=== PATIENT | male | born 1950 | race Caucasian/White ===

== ENCOUNTER → 2018-02-25 07:31 | Outpatient (CLI) | payer OTHER, SELFPAY ==
--- NOTE | 2018-02-25 | DI.RAD.S_ITS ---
PROCEDURE: XR ANKLE RT MIN 3V INDICATIONS: right ankle pain TECHNIQUE: 3 views of the ankle were acquired. COMPARISON: [facility], , ANKLE 3 VIEWS LEFT, 04/24/2016, 9:37. FINDINGS: Bones: No acute fractures or dislocations but there is relatively prominent degenerative tibiotalar joint osteophytic change and a tilt of the tailus in relationship to the distal plafond to the degree that significant ligamentous laxity is present allowing widening of the lateral ankle mortise joint vertically in that area. . No suspicious bony lesions. Soft tissues: No tibiotalar joint effusion. Achilles tendon appears normal. IMPRESSION: Chronic moderate degenerative osteoarthritic change, suspect several small old avulsion fragments at the inferior tip of the lateral and medial malleolus. No acute trauma seen. Ankle joint instability appears present given the abnormal widening of the lateral ankle mortise joint vertically, showing approximately a width of 7 mm laterally versus 3-4 mm medially Dictated by: Mitchell Ng M.D. on 02/25/2018 at 11:30 Approved by: Mitchell Ng M.D. on 02/25/2018 at 11:31
== END ==
PROVIDERS: Family Provider Family Medicine; PCP Family Medicine; Visit Provider Chiropractor
DX: M19.071 Primary osteoarthritis, right ankle and foot (principal); M25.571 Pain in right ankle and joints of right foot
CPT/HCPCS: 73610

== ENCOUNTER → 2018-06-02 13:40 | Outpatient (CLI) | payer OTHER, SELFPAY ==
--- NOTE | 2018-06-02 | DI.RAD.S_ITS ---
PROCEDURE: XR SHOULDER RT MIN 2V INDICATIONS: RIGHT SHOULDER PAIN TECHNIQUE: 3 views of the shoulder were acquired. COMPARISON: None. FINDINGS: Bones: No fractures or dislocations. No suspicious bony lesions. There is severe glenohumeral joint degeneration with severe joint space narrowing, large periarticular osteophytes and subchondral sclerosis. Mild acromioclavicular joint degeneration is noted. A 5 mm superior subluxation of the distal clavicle. Visualized ribs appear intact. Soft tissues: No suspicious soft tissue calcifications. IMPRESSION: 1. Severe right glenohumeral joint degeneration. 2. Mild acromioclavicular degeneration. 3. A 5 mm superior subluxation the distal clavicle at the right a.c. joint. Dictated by: Susie Welch M.D. on 06/02/2018 at 17:33 Approved by: Susie Welch M.D. on 06/02/2018 at 17:35
== END ==
PROVIDERS: Family Provider Family Medicine; PCP Family Medicine; Visit Provider Chiropractor
DX: M25.511 Pain in right shoulder (principal); M19.011 Primary osteoarthritis, right shoulder; S43.111A Subluxation of right acromioclavicular joint, initial encounter; M24.811 Other specific joint derangements of right shoulder, not elsewhere classified
CPT/HCPCS: 73030

== ENCOUNTER → 2018-11-15 07:05 | Outpatient (CLI) | payer OTHER, SELFPAY ==
[2018-11-15 08:42] LABS: Add Manual Diff / Slide Review NO; Basophils Absolute Auto 0 /uL (0-100); Basophils Percent Auto 0.8 % (0-2); Eosinophils Absolute Auto 100 /uL (0-450); Eosinophils Percent Auto 2.1 % (2-4); Hemoglobin 14.4 g/dL (13.5-17.5); Lymphocytes Absolute Auto 1400 /uL (1100-4500); Lymphocytes Percent Auto 31.9 % (25-40); Mean Corpuscular HGB Conc 33.6 % (30-36); Mean Corpuscular Hemoglobin 29.8 PG (26-34); Mean Corpuscular Volume 88.7 fL (80-100); Monocytes Absolute Auto 400 /uL (0-900); Monocytes Percent Auto 8.4 % (3-14); Neutrophils Absolute Auto 2400 /uL (1500-7000); Neutrophils Percent Auto 56.8 % (50-75); Platelet Count 289 X10^3/uL (150-400); Red Blood Cell Count 4.84 X10^6/uL (4.5-5.9); Red Cell Distribution Width 13.6 % (11.6-14.8); White Blood Cell Count 4.2 X10^3/uL (4.5-11.0)
[2018-11-15 09:11] LABS: Alanine Aminotransferase 24 IU/L (21-72); Albumin 4.6 g/dL (3.5-5.0); Albumin Globulin Ratio 1.6 (1.0-2.8); Alkaline Phosphatase 68 U/L (38-126); Aspartate Aminotransferase 27 IU/L (17-59); BUN Creatinine Ratio 23.8 (6-22); Bilirubin Total 0.5 mg/dL (0.2-1.3); Blood Urea Nitrogen 19 mg/dL (9-20); Calcium 9.6 mg/dL (8.4-10.2); Carbon Dioxide 31 mmol/L (22-32); Chloride 100 mmol/L (98-107); Cholesterol 228 mg/dL (140-199); Estimated Glomerular Filt Rate > 60.0 mL/min (>60); Globulin 2.8 g/dL (1.7-4.1); Glucose 93 mg/dL (80-110); HDL Cholesterol 46 mg/dL (40-60); HEMOLYSIS < 15 (0-50); LDL Cholesterol Calculated 143 mg/dL (<100); Potassium 4.1 mmol/L (3.4-5.1); Sodium 140 mmol/L (137-145); Total Protein 7.4 g/dL (6.3-8.2); Triglycerides 197 mg/dL (35-150)
[2018-11-15 09:33] LABS: Thyroid Stimulating Hormone 2.53 uIU/mL (0.47-4.68)
[2018-11-15 10:11] LABS: Folate > 20.0 ng/mL (2.76-20.0); Vitamin B12 469 pg/mL (239-931)
[2018-11-17 18:53] LABS: ANA Screen, IFA Negative (Negative)
== END ==
PROVIDERS: PCP Naturopath; Visit Provider Naturopath
DX: Z00.00 Encounter for general adult medical examination without abnormal findings (principal); M35.00 Sjogren syndrome, unspecified; E56.9 Vitamin deficiency, unspecified
CPT/HCPCS: 36415; 80053; 80061; 82607; 82746; 84443; 85025; 86038

== ENCOUNTER → 2018-11-16 14:01 | Outpatient (CLI) | payer OTHER, SELFPAY ==
--- NOTE | 2018-11-25 16:41 | PM.CARDMON.1 ---
Outdoor Emergency Care Technician Report Referral & Results Date Patient Seen: 11/16/18 Requesting provider: Renay Ma Indication: Palpitations Duration of monitoring (days): 4 Diary information: Patient had no diary entries There were 5 patient triggered events were associated with sinus rhythm and PACs within 45 seconds of triggering the device Data: Minimum heart rate was 44 beats per minute at 02:26 on 11/19/2018 Maximum heart rate was 149 beats per minute at 15:32 on 11/17/2018 Patient had about 9.3% of identified beats as PACs and less than 1% of identified beats as PVCs Patient had 1 5 beat run of ventricular tachycardia occurring at 20:43 on 11/16/2018 Impression: Single 5 beat run of ventricular tachycardia Patient's symptoms palpitations are more likely not due to frequent PACs Clinical correlation suggested
== END ==
PROVIDERS: PCP Naturopath; Visit Provider Hospitalist
DX: R00.2 Palpitations (principal)
CPT/HCPCS: 0296T; 0298T

== ENCOUNTER 2020-05-09 09:45 | Outpatient (RCR) | payer OTHER, SELFPAY ==
--- NOTE | 2019-08-24 18:09 | PT.OIE ---
Current Diagnoses Other acquired deformities of right foot (08/24/19) Stiffness of right ankle, not elsewhere classified (08/24/19) Stiffness of right foot, not elsewhere classified (08/24/19) Difficulty in walking, not elsewhere classified (08/24/19) Weakness (08/24/19) Other specified postprocedural states (08/24/19) Past Medical History (Last Reviewed 06/23/19 @ 09:27 by MAURICIO Palomino) Hypercholesteremia (Acute) Visit Care Team Role Provider Type Evita Kelly ND Primary Care Provider Non-Staff Specialty: Naturopathy Address: [address] [place] [address], [id number] Email: Stephan Baeza MD Attending Provider Non-Staff Referring Provider Specialty: Orthopedics Address: [address] [place] [address], [place] [id number], [place], [address] Fax: Email: Physical Therapy Initial Evaluation PT-OP-A Visit Information Start: 08/23/19 17:46 Freq: Status: Active Protocol: Document 08/24/19 10:41 [facility] (Rec: 08/24/19 12:16 [facility] [id number]) Out-Patient Physical Therapy Visit Information Visit Information Visit Type Initial Evaluation Visit Start Time 10:36 Visit Stop Time 11:18 Total Visit Minutes 42 Visit Number 1 Number of SPINNING BATH PATROLLER Visits 0 Precautions Precautions progressive WB over next 6 weeks with currently starting at 25% WB, in boot PT-OP-B Current Condition Start: 08/23/19 17:46 Freq: Status: Active Protocol: Document 08/24/19 10:41 [facility] (Rec: 08/24/19 12:16 [facility] [id number]) Current Condition History of Current Condition Onset Date 07/03/19 Current Complaints R ankle sx History of Current Condition Pt reports he had excessive wear and tear with his running and mountain climbing wehre it got to the point he couldn' t walk on uneven ground. He had surgery 07/03/19 where they did reconstruction of lat ligaments of RLE (R calcaneus osteotomy, lat per longus to brevis, lat lig reconstruction (talofib/calcaneofib lig) w/ post tib tendon lengthening). Pain is about 2-3 unless he he hits it hard on accident. His exercises hurt but he does them daily. Pt reports pain level is manageable and is only using tylenol. Pt wearing boot at all times except during icing and exercises. 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 Pt reprots he is typically very active but has not been doing much d/t WB restricitons . He has a 2 level house but is staying on one level. He was able to go up/down them. Pt reports just starting to put weight on it on Wednesday. Pt reports follows up with MD in 5 weeks. Treatment Goals Patient/Caregiver Goals Pt wants to return hunting and hiking, not have his ankle limit him PT-OP-C Subjective Start: 08/23/19 17:46 Freq: Status: Active Protocol: Document 08/24/19 10:41 [facility] (Rec: 08/24/19 12:16 [facility] [id number]) Patient Questionnaires Foot & Ankle Ability Measure- ADL and Sports FAAM-ADL Score 24/84 FAAM-ADL Impairment 60 to 79% Impaired (Score 16- 32) FAAM-Sport Score 0 FAAM-Sport Impairment 100% Impaired (Score 0) Lower Extremity Functional Scale LEFS Score 25 LEFS Impairment 60 to 79% Impaired (Score 17- 31) OP-PT Pain Assessment Location R ankle Pain Location Details medially sharp pain, tightness & ongoing pain on ant & lat Intensity 3 Scale Used Numeric (1 - 10) Description Sharp,Tightness Frequency Daily Radiating Location slight occ tingling and pain in lower leg Variations/Patterns numbness on the plantar aspect of foot & ant lat aspect of ankle Other Pain Aggravating Factors turning in bed, exercises, WB Pain Alleviating Factors Cold,Medication,Elevation PT-OP-F Manual Assessment Start: 08/23/19 17:46 Freq: Status: Active Protocol: Document 08/24/19 10:41 [facility] (Rec: 08/24/19 12:16 [facility] [id number]) Manual Assessments Soft Tissue Assessment Soft Tissue Mobility Assessment incisions not fully healed, still scabbed over PT-OP-G Mobility & Gait Start: 08/23/19 17:46 Freq: Status: Active Protocol: Document 08/24/19 10:41 [facility] (Rec: 08/24/19 12:16 [facility] [id number]) OP Gait Assessment Comments Gait Comments Pt amb with crutches w/step through gait with min WB into RLE and appropriate crutch use . He is currently amb with boot. PT-OP-K Range of Motion Start: 08/23/19 17:46 Freq: Status: Active Protocol: Document 08/24/19 10:41 [facility] (Rec: 08/24/19 12:16 [facility] [id number]) Ankle and Foot Goniometric Range of Motion Ankle and Foot Left Active Dorsiflexion with Knee Extended 20 Plantarflexion 50 Inversion 30 Eversion 30 Right Active Dorsiflexion with Knee Flexed 10 Dorsiflexion with Knee Extended 10 Plantarflexion 30 Inversion 5 Eversion 5 Ankle and Foot ROM Limitations ROM Limitations Soft Tissue Tightness,Pain, Swelling Comments testing done in long sitting, lacking amt noted in DF Toe Range of Motion Toe Right Great Toe MTP Extension Active (degrees) 16 MTP Extension Passive (degrees) 55 PT-OP-M Strength Start: 08/23/19 17:46 Freq: Status: Active Protocol: Document 08/24/19 10:41 [facility] (Rec: 08/24/19 12:16 [facility] [id number]) Hip Strength Hip Manual Muscle Testing Left Flexion (L2) 4+ Good+ Extension (S1) 4- Good- Abduction 4 Good External Rotation 4+ Good+ Internal Rotation 4 Good Right Flexion (L2) 4+ Good+ Extension (S1) 3+ Fair+ Abduction 3+ Fair+ External Rotation 4 Good Internal Rotation 4 Good Comments pain in R knee Knee Strength Knee Manual Muscle Testing Right Flexion (S2) 4+ Good+ Extension (L3) 4+ Good+ Left Flexion (S2) 4+ Good+ Extension (L3) 4+ Good+ Ankle/Foot Strength Ankle and Foot Manual Muscle Testing Right Dorsiflexion (L4) 3+ Fair+ Plantarflexion (S1) 3+ Fair+ Inversion 3+ Fair+ Eversion (S1) 3+ Fair+ Reason Not Measured Pain Comments PF tested seated Left Dorsiflexion (L4) 5 Normal Plantarflexion (S1) 5 Normal Inversion 4+ Good+ Eversion (S1) 5 Normal Comments PF tested seated Toe Strength Toe Manual Muscle Testing Right Great Toe Flexion 3+ Fair+ Extension 3+ Fair+ Reason Not Measured Pain Left Great Toe Flexion 4 Good Extension 4 Good PT-OP-Q Treatments Start: 08/23/19 17:46 Freq: Status: Active Protocol: Document 08/24/19 10:41 [facility] (Rec: 08/24/19 12:16 [facility] [id number]) Therapeutic Exercises Sitting Exercises ROM Sitting Exercise Name PF/DF & inv/ev Side right Reps/Minutes 5 toe spread Reps/Minutes 3 Comments lift, spread then back down then relax gastroc stretch Sitting Exercise Name towel Side right Reps/Minutes 30 sec circles Side right Reps/Minutes 5 Comments each direction w/cueing to use as much ankle as possible ABC Comments writing pt's name-cueing for ankle motion Self-Care/Home Management Treatment Education Other Education change of crutch height PT-OP-T Assessment and Plan Start: 08/23/19 17:46 Freq: Status: Active Protocol: Document 08/24/19 10:41 [facility] (Rec: 08/24/19 12:16 [facility] [id number]) Physical Therapy Assessment Rehab Potential Rehabilitation Potential Good Evaluation Complexity Number of Personal Factors/Comorbidities 1-2 Number of Body Systems Impaired 4 or More Clinical Presentation at Evaluation Evolving Impairments Impairments Activity Tolerance,Balance, Functional Activities, Functional Mobility,Gait, Integument,Pain,Posture,ROM, Sensation,Soft Tissue Mobility ,Strength Goals FAAM Impairment 24/84 Short Term Goal (STG) Pt will score 44/84 to show improved functional ability. STG Duration 09/27/19 Slitter Helper Goal (LTG) Pt will score 80/84 to show improved functional ability. LTG Duration 11/22/19 activities Short Term Goal (STG) Pt will report going for short walks on flat even surfaces 3x/week. STG Duration 10/06/19 Long-Term Goal (LTG) Pt will report able to return to hiking without increased pain. LTG Duration 11/22/19 gait Short Term Goal (STG) Pt will manav able to amb with boot without crutches with full WB without inc pain greater than 3/10. STG Duration 10/06/19 Slitter Helper Goal (LTG) Pt will b eable to amb without boot without deviations or pain. LTG Duration 11/22/19 strength Short Term Goal (STG) Pt will be indep with HEP. STG Duration 09/22/19 Long-Term Goal (LTG) Pt will have 5/ BLE strength in order to allow LTG Duration 11/22/19 ROM Short Term Goal (STG) Pt will improve DF to neutral. STG Duration 09/27/19 Slitter Helper Goal (LTG) Pt will have full ROM of R ankle to allow pt do amb up/ down stairs and do functional activities without inc pain. LTG Duration 11/22/19 Assessment Summary Assessment Pt presents s/p R ankle tendon lengthening and ligament reconstruction on 07/03/19. He has just started progressive WB per MD order and is starting with 25% WB and was NWB the 6 weeks prior. He is very motivated and has been performing the exercises prescribed by his MD already. He is typically very high level and is looking forward to returning to hunting, hiking and being overall active once allowed. He is currently instructed to wear a boot when WB. He has limited ROM, strength and overall mobility and would bneefit from skilled PT in order to address these deficits. Clarification was sent to MD re: progressive WB if boot required until he follows up with MD in 5 more weeks. Physical Therapy Plan Frequency and Duration Frequency of Treatment 1-2x/week Duration of Treatment 3 monthes Plan of Care Start Date 08/24/19 Plan of Care End Date 09/22/19 Therapeutic Interventions Therapeutic Interventions Aquatic Therapy,Balance Training,Gait Training,Home Exercise Program,Joint Mobilizations,Manual Therapy, Neuromuscular Re-education, Patient/Caregiver Education, Self-Care/Home Management,Soft Tissue Mobilization,Taping, Therapeutic Activities, Therapeutic Exercises Modalities Cold Pack/Ice Massage,Electric Stimulation,Hot Packs, Infrared Therapy,Iontophoresis ,Ultrasound Next Visit Focus/Plan Next Note Type Treatment Note Next Visit Plan Progressive WB starting at 25% up to full WB by October 01 with boot, add passive self stretching, manual passive stretching, short foot exercise, towel scrunch/marble tack picker
--- NOTE | 2019-08-24 18:09 | PT.OPPOC ---
Addendum entered and electronically signed by Ginny Baptiste PT 09/12/19 17:53: POC end date shoulde be 11/22/19 for 3 months from evaluation date. Original Note: Physical, Occupational & Speech Therapy At [facility] Current Diagnoses Other acquired deformities of right foot (08/24/19) Stiffness of right ankle, not elsewhere classified (08/24/19) Stiffness of right foot, not elsewhere classified (08/24/19) Difficulty in walking, not elsewhere classified (08/24/19) Weakness (08/24/19) Other specified postprocedural states (08/24/19) Visit Care Team Role Provider Type Evita Kelly ND Primary Care Provider Non-Staff Specialty: Naturopathy Address: [address] [place] [address], [address] Email: Stephan Baeza MD Attending Provider Non-Staff Referring Provider Specialty: Orthopedics Address: [address] [place] [address], [place] [id number], [place], [address] Fax: Email: Plan Of Care PT-OP-T Assessment and Plan Start: 08/23/19 17:46 Freq: Status: Active Protocol: Document 08/24/19 10:41 [facility] (Rec: 08/24/19 12:16 [facility] [id number]) Physical Therapy Assessment Rehab Potential Rehabilitation Potential Good Evaluation Complexity Number of Personal Factors/Comorbidities 1-2 Number of Body Systems Impaired 4 or More Clinical Presentation at Evaluation Evolving Impairments Impairments Activity Tolerance,Balance, Functional Activities, Functional Mobility,Gait, Integument,Pain,Posture,ROM, Sensation,Soft Tissue Mobility ,Strength Goals FAAM Impairment 24/ Short Term Goal (STG) Pt will score 44/84 to show improved functional ability. STG Duration 09/27/19 Custodial Goal (LTG) Pt will score 80/84 to show improved functional ability. LTG Duration 11/22/19 activities Short Term Goal (STG) Pt will report going for short walks on flat even surfaces 3x/week. STG Duration 10/06/19 Custodial Goal (LTG) Pt will report able to return to hiking without increased pain. LTG Duration 11/22/19 gait Short Term Goal (STG) Pt will manav able to amb with boot without crutches with full WB without inc pain greater than 3/10. STG Duration 10/06/19 Custodial Goal (LTG) Pt will b eable to amb without boot without deviations or pain. LTG Duration 11/22/19 strength Short Term Goal (STG) Pt will be indep with HEP. STG Duration 09/22/19 Drop Crew Laborer Goal (LTG) Pt will have 5/5 BLE strength in order to allow LTG Duration 11/22/19 ROM Short Term Goal (STG) Pt will improve DF to neutral. STG Duration 09/27/19 Drop Crew Laborer Goal (LTG) Pt will have full ROM of R ankle to allow pt do amb up/ down stairs and do functional activities without inc pain. LTG Duration 11/22/19 Assessment Summary Assessment Pt presents s/p R ankle tendon lengthening and ligament reconstruction on 07/03/19. He has just started progressive WB per MD order and is starting with 25% WB and was NWB the 6 weeks prior. He is very motivated and has been performing the exercises prescribed by his MD already. He is typically very high level and is looking forward to returning to hunting, hiking and being overall active once allowed. He is currently instructed to wear a boot when WB. He has limited ROM, strength and overall mobility and would bneefit from skilled PT in order to address these deficits. Clarification was sent to MD re: progressive WB if boot required until he follows up with MD in 5 more weeks. Physical Therapy Plan Frequency and Duration Frequency of Treatment 1-2x/week Duration of Treatment 3 monthes Plan of Care Start Date 08/24/19 Plan of Care End Date 09/22/19 Therapeutic Interventions Therapeutic Interventions Aquatic Therapy,Balance Training,Gait Training,Home Exercise Program,Joint Mobilizations,Manual Therapy, Neuromuscular Re-education, Patient/Caregiver Education, Self-Care/Home Management,Soft Tissue Mobilization,Taping, Therapeutic Activities, Therapeutic Exercises Modalities Cold Pack/Ice Massage,Electric Stimulation,Hot Packs, Infrared Therapy,Iontophoresis ,Ultrasound Next Visit Focus/Plan Next Note Type Treatment Note Next Visit Plan Progressive WB starting at 25% up to full WB by October 01 with boot, add passive self stretching, manual passive stretching, short foot exercise, towel scrunch/marble peanut picker Plan of Care Dates Plan of Care Start Date 08/24/19 Plan of Care End Date 09/22/19 Electronically Signed by: Ginny Baptiste, PT 08/24/19 1809 Please Sign and Return: I have reviewed this Plan of Care and certify that the skilled therapy services above are required to meet the patient?s needs. Physician Signature Date Printed Name and Credentials Clinical Instructor Signature Printed Name and Credentials
--- NOTE | 2019-08-31 09:01 | PT.OTN ---
Current Diagnoses Other acquired deformities of right foot (08/31/19) Stiffness of right ankle, not elsewhere classified (08/31/19) Stiffness of right foot, not elsewhere classified (08/31/19) Difficulty in walking, not elsewhere classified (08/31/19) Weakness (08/31/19) Other specified postprocedural states (08/31/19) Physical Therapy Treatment Note PT-OP-A Visit Information Start: 08/23/19 17:46 Freq: Status: Active Protocol: Document 08/31/19 08:15 KS (Rec: 08/31/19 10:07 KS [id number]) Out-Patient Physical Therapy Visit Information Visit Information Visit Type Treatment Note Visit Start Time 08:15 Visit Stop Time 09:01 Total Visit Minutes 46 Visit Number 2 Number of GUN REPAIR CLERK Visits 1 PT-OP-B Current Condition Start: 08/23/19 17:46 Freq: Status: Active Protocol: Document 08/24/19 10:41 [facility] (Rec: 08/24/19 12:16 [facility] [id number]) Current Condition History of Current Condition Onset Date 07/03/19 Current Complaints R ankle sx History of Current Condition Pt reports he had excessive wear and tear with his running and mountain climbing wehre it got to the point he couldn' t walk on uneven ground. He had surgery 07/03/19 where they did reconstruction of lat ligaments of RLE (R calcaneus osteotomy, lat per longus to brevis, lat lig reconstruction (talofib/calcaneofib lig) w/ post tib tendon lengthening). Pain is about 2-3 unless he he hits it hard on accident. His exercises hurt but he does them daily. Pt reports pain level is manageable and is only using tylenol. Pt wearing boot at all times except during icing and exercises. 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 Pt reprots he is typically very active but has not been doing much d/t WB restricitons . He has a 2 level house but is staying on one level. He was able to go up/down them. Pt reports just starting to put weight on it on Wednesday. Pt reports follows up with MD in 5 weeks. Treatment Goals Patient/Caregiver Goals Pt wants to return hunting and hiking, not have his ankle limit him PT-OP-C Subjective Start: 02/26/20 17:46 Freq: Status: Active Protocol: Document 08/31/19 08:15 KS (Rec: 08/31/19 10:07 KS [id number]) OP-PT Subjective Patient Comments Patient Comments Pt reports he has been doing some exercises at home but not all. Offers that he was standing all day 08/30/19 and ankle feels more stiff today. PT-OP-F Manual Assessment Start: 08/23/19 17:46 Freq: Status: Active Protocol: Document 08/24/19 10:41 [facility] (Rec: 08/24/19 12:16 [facility] [id number]) Manual Assessments Soft Tissue Assessment Soft Tissue Mobility Assessment incisions not fully healed, still scabbed over PT-OP-G Mobility & Gait Start: 08/23/19 17:46 Freq: Status: Active Protocol: Document 08/24/19 10:41 [facility] (Rec: 08/24/19 12:16 [facility] [id number]) OP Gait Assessment Comments Gait Comments Pt amb with crutches w/step through gait with min WB into RLE and appropriate crutch use . He is currently amb with boot. PT-OP-K Range of Motion Start: 08/23/19 17:46 Freq: Status: Active Protocol: Document 08/24/19 10:41 [facility] (Rec: 08/24/19 12:16 [facility] [id number]) Ankle and Foot Goniometric Range of Motion Ankle and Foot Left Active Dorsiflexion with Knee Extended 20 Plantarflexion 50 Inversion 30 Eversion 30 Right Active Dorsiflexion with Knee Flexed 10 Dorsiflexion with Knee Extended 10 Plantarflexion 30 Inversion 5 Eversion 5 Ankle and Foot ROM Limitations ROM Limitations Soft Tissue Tightness,Pain, Swelling Comments testing done in long sitting, lacking amt noted in DF Toe Range of Motion Toe Right Great Toe MTP Extension Active (degrees) 16 MTP Extension Passive (degrees) 55 PT-OP-M Strength Start: 08/23/19 17:46 Freq: Status: Active Protocol: Document 08/24/19 10:41 [facility] (Rec: 08/24/19 12:16 [facility] [id number]) Hip Strength Hip Manual Muscle Testing Left Flexion (L2) 4+ Good+ Extension (S1) 4- Good- Abduction 4 Good External Rotation 4+ Good+ Internal Rotation 4 Good Right Flexion (L2) 4+ Good+ Extension (S1) 3+ Fair+ Abduction 3+ Fair+ External Rotation 4 Good Internal Rotation 4 Good Comments pain in R knee Knee Strength Knee Manual Muscle Testing Right Flexion (S2) 4+ Good+ Extension (L3) 4+ Good+ Left Flexion (S2) 4+ Good+ Extension (L3) 4+ Good+ Ankle/Foot Strength Ankle and Foot Manual Muscle Testing Right Dorsiflexion (L4) 3+ Fair+ Plantarflexion (S1) 3+ Fair+ Inversion 3+ Fair+ Eversion (S1) 3+ Fair+ Reason Not Measured Pain Comments PF tested seated Left Dorsiflexion (L4) 5 Normal Plantarflexion (S1) 5 Normal Inversion 4+ Good+ Eversion (S1) 5 Normal Comments PF tested seated Toe Strength Toe Manual Muscle Testing Right Great Toe Flexion 3+ Fair+ Extension 3+ Fair+ Reason Not Measured Pain Left Great Toe Flexion 4 Good Extension 4 Good PT-OP-Q Treatments Start: 08/23/19 17:46 Freq: Status: Active Protocol: Document 08/31/19 08:15 KS (Rec: 08/31/19 10:07 NE [id number]) Therapeutic Exercises Sitting Exercises Heel toe raises Sitting Exercise Name Seated heel toe raises Reps/Minutes 3x10 Comments focus on toe spread at end of heel raise BAPS board Sitting Exercise Name BAPS Side right Equipment Used clockwise, CC Reps/Minutes 5 ROM Sitting Exercise Name PF/DF & inv/ev Side right Reps/Minutes 5 toe spread Sitting Exercise Name toe crunches/towel crunch Side bilateral Reps/Minutes 3 Comments pt unable to brass pickler towel w/ either foot gastroc stretch Sitting Exercise Name towel Side right Reps/Minutes 30 sec circles Side right Reps/Minutes 5 Comments each direction w/cueing to use as much ankle as possible ABC Comments writing pt's name-cueing for ankle motion Manual Therapy Treatment Soft Tissue Mobilization R ankle Body Location R ankle Mobilization Type Other Intensity/Depth Superficial Body Position Supine Comments Superficial STM to arch of foot, medial and lateral ankle , passive stretching. Pitting edema identified R anterior forefoot PT-OP-T Assessment and Plan Start: 08/23/19 17:46 Freq: Status: Active Protocol: Document 08/31/19 08:15 KS (Rec: 08/31/19 10:07 KS [email or web address]) Physical Therapy Assessment Rehab Potential Rehabilitation Potential Good Evaluation Complexity Number of Personal Factors/Comorbidities 1-2 Number of Body Systems Impaired 4 or More Clinical Presentation at Evaluation Evolving Impairments Impairments Activity Tolerance,Balance, Functional Activities, Functional Mobility,Gait, Integument,Pain,Posture,ROM, Sensation,Soft Tissue Mobility ,Strength Goals FAAM Impairment Short Term Goal (STG) Pt will score 44/84 to show improved functional ability. STG Duration 09/27/19 Fpc Goal (LTG) Pt will score 80/84 to show improved functional ability. LTG Duration 11/22/19 activities Short Term Goal (STG) Pt will report going for short walks on flat even surfaces 3x/week. STG Duration 10/06/19 Fpc Goal (LTG) Pt will report able to return to hiking without increased pain. LTG Duration 11/22/19 gait Short Term Goal (STG) Pt will manav able to amb with boot without crutches with full WB without inc pain greater than 3/10. STG Duration 10/06/19 Monumental Stonemason Goal (LTG) Pt will b eable to amb without boot without deviations or pain. LTG Duration 11/22/19 strength Short Term Goal (STG) Pt will be indep with HEP. STG Duration 09/22/19 Monumental Stonemason Goal (LTG) Pt will have 5/5 BLE strength in order to allow LTG Duration 11/22/19 ROM Short Term Goal (STG) Pt will improve DF to neutral. STG Duration 09/27/19 Monumental Stonemason Goal (LTG) Pt will have full ROM of R ankle to allow pt do amb up/ down stairs and do functional activities without inc pain. LTG Duration 11/22/19 Assessment Summary Assessment Pt reports moderate compliance w/ HEP and some increased stiffness in R foot and ankle after standing all day yesterday. Pt able to complete all exercises this treatment, but reported increased pain during eversion and increased stiffness during inversion. Responded well to heel toe raises. Discussed elevating foot at home to reduce edema. After ice and elevation, pts R foot and ankle appeared less red. Physical Therapy Plan Frequency and Duration Frequency of Treatment 1-2x/week Duration of Treatment 3 monthes Plan of Care Start Date 08/24/19 Plan of Care End Date 09/22/19 Therapeutic Interventions Therapeutic Interventions Aquatic Therapy,Balance Training,Gait Training,Home Exercise Program,Joint Mobilizations,Manual Therapy, Neuromuscular Re-education, Patient/Caregiver Education, Self-Care/Home Management,Soft Tissue Mobilization,Taping, Therapeutic Activities, Therapeutic Exercises Modalities Cold Pack/Ice Massage,Electric Stimulation,Hot Packs, Infrared Therapy,Iontophoresis ,Ultrasound Next Visit Focus/Plan Next Note Type Treatment Note Next Visit Plan Progressive WB starting at 25% up to full WB by October 01 with boot, add passive self stretching, manual passive stretching, short foot exercise, towel scrunch/marble brass pickler
--- NOTE | 2019-09-04 08:22 | PT.OTN ---
Current Diagnoses Other acquired deformities of right foot (09/04/19) Stiffness of right ankle, not elsewhere classified (09/04/19) Stiffness of right foot, not elsewhere classified (09/04/19) Difficulty in walking, not elsewhere classified (09/04/19) Weakness (09/04/19) Other specified postprocedural states (09/04/19) Physical Therapy Treatment Note PT-OP-A Visit Information Start: 08/23/19 17:46 Freq: Status: Active Protocol: Document 09/04/19 07:32 SP (Rec: 09/04/19 08:51 SP [id number]) Out-Patient Physical Therapy Visit Information Visit Information Visit Type Treatment Note Visit Start Time 07:32 Visit Stop Time 08:22 Total Visit Minutes 50 Visit Number 3 Number of BALL SORTER Visits 2 PT-OP-B Current Condition Start: 08/23/19 17:46 Freq: Status: Active Protocol: Document 08/24/19 10:41 [facility] (Rec: 08/24/19 12:16 [facility] [id number]) Current Condition History of Current Condition Onset Date 07/03/19 Current Complaints R ankle sx History of Current Condition Pt reports he had excessive wear and tear with his running and mountain climbing wehre it got to the point he couldn' t walk on uneven ground. He had surgery 07/03/19 where they did reconstruction of lat ligaments of RLE (R calcaneus osteotomy, lat per longus to brevis, lat lig reconstruction (talofib/calcaneofib lig) w/ post tib tendon lengthening). Pain is about 2-3 unless he he hits it hard on accident. His exercises hurt but he does them daily. Pt reports pain level is manageable and is only using tylenol. Pt wearing boot at all times except during icing and exercises. 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 Pt reprots he is typically very active but has not been doing much d/t WB restricitons . He has a 2 level house but is staying on one level. He was able to go up/down them. Pt reports just starting to put weight on it on Wednesday. Pt reports follows up with MD in 5 weeks. Treatment Goals Patient/Caregiver Goals Pt wants to return hunting and hiking, not have his ankle limit him PT-OP-C Subjective Start: 08/23/19 17:46 Freq: Status: Active Protocol: Document 09/04/19 07:32 SP (Rec: 09/04/19 08:51 SP [id number]) OP-PT Subjective Patient Comments Patient Comments Pt good demonstration 25% WB compliance while using B crutches upon arrival to PT today. He reports has been doing his exercises at home. Pt stated see ortho Sep 26 follow up but currently has a trip to scheduled for a turkey little with friends Oct 01 and unsure will be cleared to walk outdoors to attend. Pt stated ankle pain about 2-3/10 mainly toward end of day but conscious about allowed 25% WB . PT-OP-F Manual Assessment Start: 08/23/19 17:46 Freq: Status: Active Protocol: Document 08/24/19 10:41 [facility] (Rec: 08/24/19 12:16 [facility] [id number]) Manual Assessments Soft Tissue Assessment Soft Tissue Mobility Assessment incisions not fully healed, still scabbed over PT-OP-G Mobility & Gait Start: 08/23/19 17:46 Freq: Status: Active Protocol: Document 08/24/19 10:41 [facility] (Rec: 08/24/19 12:16 [facility] [id number]) OP Gait Assessment Comments Gait Comments Pt amb with crutches w/step through gait with min WB into RLE and appropriate crutch use . He is currently amb with boot. PT-OP-K Range of Motion Start: 08/23/19 17:46 Freq: Status: Active Protocol: Document 08/24/19 10:41 [facility] (Rec: 08/24/19 12:16 [facility] [id number]) Ankle and Foot Goniometric Range of Motion Ankle and Foot Left Active Dorsiflexion with Knee Extended 20 Plantarflexion 50 Inversion 30 Eversion 30 Right Active Dorsiflexion with Knee Flexed 10 Dorsiflexion with Knee Extended 10 Plantarflexion 30 Inversion 5 Eversion 5 Ankle and Foot ROM Limitations ROM Limitations Soft Tissue Tightness,Pain, Swelling Comments testing done in long sitting, lacking amt noted in DF Toe Range of Motion Toe Right Great Toe MTP Extension Active (degrees) 16 MTP Extension Passive (degrees) 55 PT-OP-M Strength Start: 08/23/19 17:46 Freq: Status: Active Protocol: Document 08/24/19 10:41 [facility] (Rec: 08/24/19 12:16 [facility] [id number]) Hip Strength Hip Manual Muscle Testing Left Flexion (L2) 4+ Good+ Extension (S1) 4- Good- Abduction 4 Good External Rotation 4+ Good+ Internal Rotation 4 Good Right Flexion (L2) 4+ Good+ Extension (S1) 3+ Fair+ Abduction 3+ Fair+ External Rotation 4 Good Internal Rotation 4 Good Comments pain in R knee Knee Strength Knee Manual Muscle Testing Right Flexion (S2) 4+ Good+ Extension (L3) 4+ Good+ Left Flexion (S2) 4+ Good+ Extension (L3) 4+ Good+ Ankle/Foot Strength Ankle and Foot Manual Muscle Testing Right Dorsiflexion (L4) 3+ Fair+ Plantarflexion (S1) 3+ Fair+ Inversion 3+ Fair+ Eversion (S1) 3+ Fair+ Reason Not Measured Pain Comments PF tested seated Left Dorsiflexion (L4) 5 Normal Plantarflexion (S1) 5 Normal Inversion 4+ Good+ Eversion (S1) 5 Normal Comments PF tested seated Toe Strength Toe Manual Muscle Testing Right Great Toe Flexion 3+ Fair+ Extension 3+ Fair+ Reason Not Measured Pain Left Great Toe Flexion 4 Good Extension 4 Good PT-OP-Q Treatments Start: 08/23/19 17:46 Freq: Status: Active Protocol: Document 09/04/19 07:32 SP (Rec: 09/04/19 08:51 SP [id number]) Therapeutic Exercises Supine Exercises LLE only single leg bridge Side left Resistance AROM Reps/Minutes x10 Comments cued PPT, core facilitation and slow pacing LAQ Side bilateral Resistance AROM Reps/Minutes x20 Comments cued slow muscular pacing SLR Side bilateral Resistance AROM Reps/Minutes x20 Comments cued slow muscular pacing Sidelying Exercises hip abd Side bilateral Resistance AROM Reps/Minutes x10 Comments cued slow muscular pacing, proper trunk and LE alignment Sitting Exercises toe crunches/towel crunch Sitting Exercise Name arch lift and toe scrunch Reps/Minutes x10 each Heel toe raises Sitting Exercise Name Seated heel toe raises Reps/Minutes 3x10 Comments focus on toe spread at end of heel raise BAPS board Side right Resistance #2 Equipment Used PF, DF, IV, EV, CW, CCW Reps/Minutes 10 reps each direction Comments cued slow muscular pacing ROM Sitting Exercise Name PF/DF & inv/ev Side right Resistance manual PROM, AROM and self manual AAROM Reps/Minutes 3 toe spread Side bilateral Reps/Minutes 3 Comments pt unable to grain picker towel w/ either foot Manual Therapy Treatment Soft Tissue Mobilization scar mobility Body Location R ankle scar Mobilization Type Cross-Friction,Myofascial Release Intensity/Depth Superficial Body Position Supine Comments manual and self application instruction. Joint Mobilizations MTP Joint 1-5 Direction gentle AP Grade II Body Position Sitting Reps/Duration 1 min Comments manual and self application instruction, cued PROM gentle PT-OP-T Assessment and Plan Start: 08/23/19 17:46 Freq: Status: Active Protocol: Document 09/04/19 07:32 SP (Rec: 09/04/19 08:51 SP [id number]) Physical Therapy Assessment Goals FAAM Impairment Short Term Goal (STG) Pt will score 44/84 to show improved functional ability. STG Duration 09/27/19 Android Ios Developer Goal (LTG) Pt will score 80/84 to show improved functional ability. LTG Duration 11/22/19 activities Short Term Goal (STG) Pt will report going for short walks on flat even surfaces 3x/week. STG Duration 10/06/19 Custodial Goal (LTG) Pt will report able to return to hiking without increased pain. LTG Duration 11/22/19 gait Short Term Goal (STG) Pt will manav able to amb with boot without crutches with full WB without inc pain greater than 3/10. STG Duration 10/06/19 Custodial Goal (LTG) Pt will b eable to amb without boot without deviations or pain. LTG Duration 11/22/19 strength Short Term Goal (STG) Pt will be indep with HEP. STG Duration 09/22/19 Custodial Goal (LTG) Pt will have 5/5 BLE strength in order to allow LTG Duration 11/22/19 ROM Short Term Goal (STG) Pt will improve DF to neutral. STG Duration 09/27/19 Android Ios Developer Goal (LTG) Pt will have full ROM of R ankle to allow pt do amb up/ down stairs and do functional activities without inc pain. LTG Duration 11/22/19 Assessment Summary Assessment Pt responded well to ther ex HEP review and additions today with just report of soreness. Instructed self scar mobiltiy and MTP gentle jt mobilzations post manual assessment for tolerance with improved AROM movement into PF , DF, IV,Ev noted on BAPS exercise today.Pt declined modalities end of tx, will do come ice at home later. Physical Therapy Plan Frequency and Duration Frequency of Treatment 1-2x/week Duration of Treatment 3 monthes Plan of Care Start Date 08/24/19 Plan of Care End Date 09/22/19 Therapeutic Interventions Therapeutic Interventions Aquatic Therapy,Balance Training,Gait Training,Home Exercise Program,Joint Mobilizations,Manual Therapy, Neuromuscular Re-education, Patient/Caregiver Education, Self-Care/Home Management,Soft Tissue Mobilization,Taping, Therapeutic Activities, Therapeutic Exercises Modalities Cold Pack/Ice Massage,Electric Stimulation,Hot Packs, Infrared Therapy,Iontophoresis ,Ultrasound Next Visit Focus/Plan Next Note Type Treatment Note Next Visit Plan Assess added LE exercises and self scar mobility added last tx. Next tx add self passive stretching. Continue per PT POC: Progressive WB starting at 25% up to full WB by October 01 with boot (September 10 50%, 09/17 75% WB, 09/24- 10/01 assess FWB tolerance), add passive self stretching, manual passive stretching, short foot exercise, towel scrunch/marble grain picker
--- NOTE | 2019-09-12 13:06 | PT.OTN ---
Current Diagnoses Other acquired deformities of right foot (09/12/19) Stiffness of right ankle, not elsewhere classified (09/12/19) Stiffness of right foot, not elsewhere classified (09/12/19) Difficulty in walking, not elsewhere classified (09/12/19) Weakness (09/12/19) Other specified postprocedural states (09/12/19) Physical Therapy Treatment Note PT-OP-A Visit Information Start: 08/23/19 17:46 Freq: Status: Active Protocol: Document 09/12/19 09:04 SP (Rec: 09/12/19 10:26 SP [id number]) Out-Patient Physical Therapy Visit Information Visit Information Visit Type Treatment Note Visit Start Time 08:12 Visit Stop Time 09:00 Total Visit Minutes 48 Visit Number 4 Number of FARE COLLECTOR Visits 0 PT-OP-B Current Condition Start: 08/23/19 17:46 Freq: Status: Active Protocol: Document 08/24/19 10:41 [facility] (Rec: 08/24/19 12:16 [facility] [id number]) Current Condition History of Current Condition Onset Date 07/03/19 Current Complaints R ankle sx History of Current Condition Pt reports he had excessive wear and tear with his running and mountain climbing wehre it got to the point he couldn' t walk on uneven ground. He had surgery 07/03/19 where they did reconstruction of lat ligaments of RLE (R calcaneus osteotomy, lat per longus to brevis, lat lig reconstruction (talofib/calcaneofib lig) w/ post tib tendon lengthening). Pain is about 2-3 unless he he hits it hard on accident. His exercises hurt but he does them daily. Pt reports pain level is manageable and is only using tylenol. Pt wearing boot at all times except during icing and exercises. 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 Pt reprots he is typically very active but has not been doing much d/t WB restricitons . He has a 2 level house but is staying on one level. He was able to go up/down them. Pt reports just starting to put weight on it on Wednesday. Pt reports follows up with MD in 5 weeks. Treatment Goals Patient/Caregiver Goals Pt wants to return hunting and hiking, not have his ankle limit him PT-OP-C Subjective Start: 02/26/20 17:46 Freq: Status: Active Protocol: Document 09/12/19 09:04 SP (Rec: 09/12/19 10:26 SP [id number]) OP-PT Subjective Patient Comments Patient Comments Pt reports he has been completing his exercises daily . He thinks his range of motion and strength is improving and would like to have more time in between appts and focus on his HEP. His incision is healing well and he reports minimal pain with end-range stretches. PT-OP-F Manual Assessment Start: 08/23/19 17:46 Freq: Status: Active Protocol: Document 08/24/19 10:41 [facility] (Rec: 08/24/19 12:16 [facility] [id number]) Manual Assessments Soft Tissue Assessment Soft Tissue Mobility Assessment incisions not fully healed, still scabbed over PT-OP-G Mobility & Gait Start: 08/23/19 17:46 Freq: Status: Active Protocol: Document 08/24/19 10:41 [facility] (Rec: 08/24/19 12:16 [facility] [id number]) OP Gait Assessment Comments Gait Comments Pt amb with crutches w/step through gait with min WB into RLE and appropriate crutch use . He is currently amb with boot. PT-OP-K Range of Motion Start: 08/23/19 17:46 Freq: Status: Active Protocol: Document 08/24/19 10:41 [facility] (Rec: 08/24/19 12:16 [facility] [id number]) Ankle and Foot Goniometric Range of Motion Ankle and Foot Left Active Dorsiflexion with Knee Extended 20 Plantarflexion 50 Inversion 30 Eversion 30 Right Active Dorsiflexion with Knee Flexed 10 Dorsiflexion with Knee Extended 10 Plantarflexion 30 Inversion 5 Eversion 5 Ankle and Foot ROM Limitations ROM Limitations Soft Tissue Tightness,Pain, Swelling Comments testing done in long sitting, lacking amt noted in DF Toe Range of Motion Toe Right Great Toe MTP Extension Active (degrees) 16 MTP Extension Passive (degrees) 55 PT-OP-M Strength Start: 08/23/19 17:46 Freq: Status: Active Protocol: Document 08/24/19 10:41 [facility] (Rec: 08/24/19 12:16 [facility] [id number]) Hip Strength Hip Manual Muscle Testing Left Flexion (L2) 4+ Good+ Extension (S1) 4- Good- Abduction 4 Good External Rotation 4+ Good+ Internal Rotation 4 Good Right Flexion (L2) 4+ Good+ Extension (S1) 3+ Fair+ Abduction 3+ Fair+ External Rotation 4 Good Internal Rotation 4 Good Comments pain in R knee Knee Strength Knee Manual Muscle Testing Right Flexion (S2) 4+ Good+ Extension (L3) 4+ Good+ Left Flexion (S2) 4+ Good+ Extension (L3) 4+ Good+ Ankle/Foot Strength Ankle and Foot Manual Muscle Testing Right Dorsiflexion (L4) 3+ Fair+ Plantarflexion (S1) 3+ Fair+ Inversion 3+ Fair+ Eversion (S1) 3+ Fair+ Reason Not Measured Pain Comments PF tested seated Left Dorsiflexion (L4) 5 Normal Plantarflexion (S1) 5 Normal Inversion 4+ Good+ Eversion (S1) 5 Normal Comments PF tested seated Toe Strength Toe Manual Muscle Testing Right Great Toe Flexion 3+ Fair+ Extension 3+ Fair+ Reason Not Measured Pain Left Great Toe Flexion 4 Good Extension 4 Good PT-OP-Q Treatments Start: 08/23/19 17:46 Freq: Status: Active Protocol: Document 09/12/19 09:04 SP (Rec: 09/12/19 10:26 SP [email or web address]) Therapeutic Exercises Supine Exercises B leg raise Reps/Minutes 20 Comments cued to slow down, bend knees in order to keep back from curving. LLE only single leg bridge Side left Resistance AROM Reps/Minutes x10 Sidelying Exercises hip abd Side bilateral Reps/Minutes 10 each side Sitting Exercises 4-way ankle Side right Resistance L1 Reps/Minutes 20 each direction ankle inversion Side right Comments Stretch and hold in position Heel toe raises Sitting Exercise Name Seated heel toe raises Reps/Minutes 3x10 toe spread Side right circles Side right Reps/Minutes 20 each direction Standing Exercises sit to stand Reps/Minutes 20 Gait Training Gait Activity weightbearing Comments 1. equal weightbearing in static standing 2. weightbearing at 50% using scale in R SLS and crutches for assist Manual Therapy Treatment Soft Tissue Mobilization scar mobility Body Location R ankle scar Mobilization Type Cross-Friction,Myofascial Release Intensity/Depth Superficial Body Position Sitting R ankle Body Location R ankle Mobilization Type Other Intensity/Depth Moderate Body Position Sitting Comments arch of foot, med/lat aspect of foot Joint Mobilizations MTP Joint MTP Direction gentle AP/PA Grade II Body Position Sitting Manual Techniques gastroc/tib ant/peroneal Type stretch Body Location R Body Position Sitting PT-OP-T Assessment and Plan Start: 08/23/19 17:46 Freq: Status: Active Protocol: Document 09/12/19 09:04 SP (Rec: 09/12/19 10:26 SP [email or web address]) Physical Therapy Assessment Goals FAAM Impairment Short Term Goal (STG) Pt will score 44/84 to show improved functional ability. STG Duration 09/27/19 Intermediate Goal (LTG) Pt will score 80/84 to show improved functional ability. LTG Duration 11/22/19 activities Short Term Goal (STG) Pt will report going for short walks on flat even surfaces 3x/week. STG Duration 10/06/19 Occ Ther Goal (LTG) Pt will report able to return to hiking without increased pain. LTG Duration 11/22/19 gait Short Term Goal (STG) Pt will manav able to amb with boot without crutches with full WB without inc pain greater than 3/10. STG Duration 10/06/19 Intermediate Goal (LTG) Pt will b eable to amb without boot without deviations or pain. LTG Duration 11/22/19 strength Short Term Goal (STG) Pt will be indep with HEP. STG Duration 09/22/19 Occ Ther Goal (LTG) Pt will have 5/5 BLE strength in order to allow LTG Duration 11/22/19 ROM Short Term Goal (STG) Pt will improve DF to neutral. STG Duration 09/27/19 Occ Ther Goal (LTG) Pt will have full ROM of R ankle to allow pt do amb up/ down stairs and do functional activities without inc pain. LTG Duration 11/22/19 Assessment Summary Assessment Pt able to demonstrate HEP with minimal cueing indicating compliance. Pt requires cueing to slow down and get to end of available range with all exercises. He was able to complete all sit to stand reps without UE support. Pt understanding of WB precautions. Physical Therapy Plan Frequency and Duration Frequency of Treatment 1-2x/week Duration of Treatment 3 monthes Plan of Care Start Date 08/24/19 Plan of Care End Date 11/22/19 Next Visit Focus/Plan Next Note Type Treatment Note Next Visit Plan Assess added home exercises, increase WB to 75%.
--- NOTE | 2019-10-24 13:21 | PT-OP ANOTE ---
Pt called re: starting to schedule appointments again and informed will be following CDC guidelines with dec therapists present in clinic, masks worn, cleaning and hand washing. Educated that they are not required to attend and it this pt choice re: attending. Pt agreeable to be seen.
--- NOTE | 2019-11-08 18:21 | PT.OTN ---
Current Diagnoses Other acquired deformities of right foot (11/08/19) Stiffness of right ankle, not elsewhere classified (11/08/19) Stiffness of right foot, not elsewhere classified (11/08/19) Difficulty in walking, not elsewhere classified (11/08/19) Weakness (11/08/19) Other specified postprocedural states (11/08/19) Physical Therapy Treatment Note PT-OP-A Visit Information Start: 08/23/19 17:46 Freq: Status: Active Protocol: Document 11/08/19 14:43 [facility] (Rec: 11/08/19 18:21 [facility] [id number]) Out-Patient Physical Therapy Visit Information Visit Information Visit Type Progress Note Visit Start Time 14:35 Visit Stop Time 15:15 Total Visit Minutes 40 Visit Number 5 Number of CREDIT RATING INSPECTOR Visits 0 PT-OP-B Current Condition Start: 08/23/19 17:46 Freq: Status: Active Protocol: Document 08/24/19 10:41 [facility] (Rec: 08/24/19 12:16 [facility] [id number]) Current Condition History of Current Condition Onset Date 07/03/19 Current Complaints R ankle sx History of Current Condition Pt reports he had excessive wear and tear with his running and mountain climbing wehre it got to the point he couldn' t walk on uneven ground. He had surgery 07/03/19 where they did reconstruction of lat ligaments of RLE (R calcaneus osteotomy, lat per longus to brevis, lat lig reconstruction (talofib/calcaneofib lig) w/ post tib tendon lengthening). Pain is about 2-3 unless he he hits it hard on accident. His exercises hurt but he does them daily. Pt reports pain level is manageable and is only using tylenol. Pt wearing boot at all times except during icing and exercises. 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 Pt reprots he is typically very active but has not been doing much d/t WB restricitons . He has a 2 level house but is staying on one level. He was able to go up/down them. Pt reports just starting to put weight on it on Wednesday. Pt reports follows up with MD in 5 weeks. Treatment Goals Patient/Caregiver Goals Pt wants to return hunting and hiking, not have his ankle limit him PT-OP-C Subjective Start: 08/23/19 17:46 Freq: Status: Active Protocol: Document 11/08/19 14:43 [facility] (Rec: 11/08/19 18:21 [facility] [id number]) OP-PT Subjective Patient Comments Patient Comments Pt reports being out of the boot for about 1 week and notes he went for 1 walk and was having pain from hip all the way down leg into ankle. Pt reports he feels like since the boot came off, he has been more painful. Pt instructed by MD to use shoe and cane. Pt was told to do it over the next month and a half. Pt typically does not have back or hip pain. Pt reports his ankle feels strong . Pt feels like ROM is getting better. Pt saw chiropractor and that helped. Pt not allowed to drive yet. PT-OP-F Manual Assessment Start: 08/23/19 17:46 Freq: Status: Active Protocol: Document 08/24/19 10:41 [facility] (Rec: 08/24/19 12:16 [facility] [id number]) Manual Assessments Soft Tissue Assessment Soft Tissue Mobility Assessment incisions not fully healed, still scabbed over PT-OP-G Mobility & Gait Start: 08/23/19 17:46 Freq: Status: Active Protocol: Document 08/24/19 10:41 [facility] (Rec: 08/24/19 12:16 [facility] [id number]) OP Gait Assessment Comments Gait Comments Pt amb with crutches w/step through gait with min WB into RLE and appropriate crutch use . He is currently amb with boot. PT-OP-K Range of Motion Start: 08/23/19 17:46 Freq: Status: Active Protocol: Document 11/08/19 14:43 [facility] (Rec: 11/08/19 18:21 [facility] [id number]) Ankle and Foot Goniometric Range of Motion Ankle and Foot Right Active Dorsiflexion with Knee Flexed 7 Dorsiflexion with Knee Extended 13 Inversion 10 Eversion 7 Ankle and Foot ROM Limitations Comments lacking 7 deg DF in seated and 13 in supine PT-OP-M Strength Start: 08/23/19 17:46 Freq: Status: Active Protocol: Document 11/08/19 14:43 [facility] (Rec: 11/08/19 18:21 [facility] [id number]) Hip Strength Hip Manual Muscle Testing Left Flexion (L2) 5 Normal Extension (S1) 4- Good- Abduction 4- Good- External Rotation 5 Normal Internal Rotation 5 Normal Right Flexion (L2) 4+ Good+ Extension (S1) 4- Good- Abduction 3+ Fair+ External Rotation 4 Good Internal Rotation 4- Good- Knee Strength Knee Manual Muscle Testing Right Flexion (S2) 4- Good- Extension (L3) 4+ Good+ Left Flexion (S2) 4 Good Extension (L3) 5 Normal Ankle/Foot Strength Ankle and Foot Manual Muscle Testing Right Dorsiflexion (L4) 4- Good- Plantarflexion (S1) 4- Good- Inversion 3+ Fair+ Eversion (S1) 3+ Fair+ Comments seated PF testing Left Dorsiflexion (L4) 5 Normal Plantarflexion (S1) 5 Normal Inversion 4+ Good+ Eversion (S1) 4+ Good+ PT-OP-Q Treatments Start: 08/23/19 17:46 Freq: Status: Active Protocol: Document 11/08/19 14:43 [facility] (Rec: 11/08/19 18:21 [facility] [id number]) Therapeutic Exercises Supine Exercises pelvic tilts Reps/Minutes 10 piriformis stretch Side right Reps/Minutes 30 sec n glide Supine Exercise Name sciatic Side right Reps/Minutes 10 Sitting Exercises tennis ball Sitting Exercise Name use of tennis ball and rolling pin for glutes, calf & HS 4-way ankle Side right Resistance L2 Reps/Minutes 10 each direction gastroc stretch Side right Reps/Minutes 30sec Gait Training Gait Activity cane Description appropriate side use and sequencing PT-OP-T Assessment and Plan Start: 08/23/19 17:46 Freq: Status: Active Protocol: Document 11/08/19 14:43 [facility] (Rec: 11/08/19 18:21 [facility] [id number]) Physical Therapy Assessment Goals FAAM Impairment Short Term Goal (STG) Pt will score 44/84 to show improved functional ability. STG Duration 12/11/19 Telecommunications Clerk Goal (LTG) Pt will score 80/84 to show improved functional ability. LTG Duration 02/08/20 activities Short Term Goal (STG) Pt will report going for short walks on flat even surfaces 3x/week. STG Duration achieved Half-Way Goal (LTG) Pt will report able to return to hiking without increased pain. LTG Duration 02/08/20 gait Short Term Goal (STG) Pt will manav able to amb with boot without crutches with full WB without inc pain greater than 3/10. STG Duration achieved Half-Way Goal (LTG) Pt will b eable to amb without boot without deviations or pain. LTG Duration 02/08/20 strength Short Term Goal (STG) Pt will be indep with HEP. STG Duration achieved progressing as needed Telecommunications Clerk Goal (LTG) Pt will have 5/5 BLE strength in order to allow LTG Duration 02/08/20 ROM Short Term Goal (STG) Pt will improve DF to neutral. STG Duration 11/26/19 Telecommunications Clerk Goal (LTG) Pt will have full ROM of R ankle to allow pt do amb up/ down stairs and do functional activities without inc pain. LTG Duration 02/08/20 Assessment Summary Assessment Pt has improved with ROM but is still limited in all planes . He is progressing well in his shoe since the MD allowed him to transition but is getting inc pain likely partially d/t pt amb with cane on R side vs L which caused significant gait deviations. pt given exercise to helpl reduce pain and improve his gait again. He is improving with strength but cont to have foot weakness. Physical Therapy Plan Frequency and Duration Frequency of Treatment 1-2x/week Duration of Treatment 3 months Plan of Care Start Date 11/08/19 Plan of Care End Date 02/08/20 Therapeutic Interventions Therapeutic Interventions Aquatic Therapy,Balance Training,Gait Training,Home Exercise Program,Joint Mobilizations,Manual Therapy, Neuromuscular Re-education, Patient/Caregiver Education, Self-Care/Home Management,Soft Tissue Mobilization,Taping, Therapeutic Activities, Therapeutic Exercises Modalities Cold Pack/Ice Massage,Electric Stimulation,Hot Packs, Infrared Therapy,Iontophoresis ,Ultrasound Next Visit Focus/Plan Next Note Type Treatment Note Next Visit Plan Work on treatment to improve function, work on gait mechanics, balance exercises, review HEP as needed, manual for ROM & scar mobs
--- NOTE | 2019-11-08 18:21 | PT.OPPOC ---
Physical, Occupational & Speech Therapy At [facility] Current Diagnoses Other acquired deformities of right foot (11/08/19) Stiffness of right ankle, not elsewhere classified (11/08/19) Stiffness of right foot, not elsewhere classified (11/08/19) Difficulty in walking, not elsewhere classified (11/08/19) Weakness (11/08/19) Other specified postprocedural states (11/08/19) Visit Care Team Role Provider Type Evita Kelly ND Primary Care Provider Non-Staff Specialty: Naturopathy Address: [address] [place] [address], [id number] Email: Stephan Baeza MD Attending Provider Non-Staff Referring Provider Specialty: Orthopedics Address: [address] [place] [address], [id number], [place], [phone] Fax: Email: Plan Of Care PT-OP-T Assessment and Plan Start: 08/23/19 17:46 Freq: Status: Active Protocol: Document 11/08/19 14:43 [facility] (Rec: 11/08/19 18:21 [facility] [id number]) Physical Therapy Assessment Goals FAAM Impairment 24 Short Term Goal (STG) Pt will score 44/84 to show improved functional ability. STG Duration 12/11/19 [facility] Goal (LTG) Pt will score 80/84 to show improved functional ability. LTG Duration 02/08/20 activities Short Term Goal (STG) Pt will report going for short walks on flat even surfaces 3x/week. STG Duration achieved [facility]cf Goal (LTG) Pt will report able to return to hiking without increased pain. LTG Duration 02/08/20 gait Short Term Goal (STG) Pt will manav able to amb with boot without crutches with full WB without inc pain greater than 3/10. STG Duration achieved [facility] Goal (LTG) Pt will b eable to amb without boot without deviations or pain. LTG Duration 02/08/20 strength Short Term Goal (STG) Pt will be indep with HEP. STG Duration achieved progressing as needed [facility] Goal (LTG) Pt will have 5/5 BLE strength in order to allow LTG Duration 02/08/20 ROM Short Term Goal (STG) Pt will improve DF to neutral. STG Duration 11/26/19 Shoe Sticks Repairer Goal (LTG) Pt will have full ROM of R ankle to allow pt do amb up/ down stairs and do functional activities without inc pain. LTG Duration 02/08/20 Assessment Summary Assessment Pt has improved with ROM but is still limited in all planes . He is progressing well in his shoe since the MD allowed him to transition but is getting inc pain likely partially d/t pt amb with cane on R side vs L which caused significant gait deviations. pt given exercise to helpl reduce pain and improve his gait again. He is improving with strength but cont to have foot weakness. Physical Therapy Plan Frequency and Duration Frequency of Treatment 1-2x/week Duration of Treatment 3 months Plan of Care Start Date 11/08/19 Plan of Care End Date 02/08/20 Therapeutic Interventions Therapeutic Interventions Aquatic Therapy,Balance Training,Gait Training,Home Exercise Program,Joint Mobilizations,Manual Therapy, Neuromuscular Re-education, Patient/Caregiver Education, Self-Care/Home Management,Soft Tissue Mobilization,Taping, Therapeutic Activities, Therapeutic Exercises Modalities Cold Pack/Ice Massage,Electric Stimulation,Hot Packs, Infrared Therapy,Iontophoresis ,Ultrasound Next Visit Focus/Plan Next Note Type Treatment Note Next Visit Plan Work on treatment to improve function, work on gait mechanics, balance exercises, review HEP as needed, manual for ROM & scar mobs Plan of Care Dates Plan of Care Start Date 11/08/19 Plan of Care End Date 02/08/20 Electronically Signed by: Ginny Baptiste, PT 11/08/19 [id number] Please Sign and Return: I have reviewed this Plan of Care and certify that the skilled therapy services above are required to meet the patient?s needs. Physician Signature Date Printed Name and Credentials Clinical Instructor Signature Printed Name and Credentials
--- NOTE | 2019-11-13 14:11 | PT.OTN ---
Current Diagnoses Other acquired deformities of right foot (11/13/19) Stiffness of right ankle, not elsewhere classified (11/13/19) Stiffness of right foot, not elsewhere classified (11/13/19) Difficulty in walking, not elsewhere classified (11/13/19) Weakness (11/13/19) Other specified postprocedural states (11/13/19) Physical Therapy Treatment Note PT-OP-A Visit Information Start: 08/23/19 17:46 Freq: Status: Active Protocol: Document 11/13/19 10:39 [facility] (Rec: 11/13/19 14:11 [facility] [id number]) Out-Patient Physical Therapy Visit Information Visit Information Visit Type Treatment Note Visit Start Time 10:32 Visit Stop Time 11:15 Total Visit Minutes 43 Visit Number 6 Number of GUEST SERVICES Visits 0 PT-OP-B Current Condition Start: 08/23/19 17:46 Freq: Status: Active Protocol: Document 08/24/19 10:41 [facility] (Rec: 08/24/19 12:16 [facility] [id number]) Current Condition History of Current Condition Onset Date 07/03/19 Current Complaints R ankle sx History of Current Condition Pt reports he had excessive wear and tear with his running and mountain climbing wehre it got to the point he couldn' t walk on uneven ground. He had surgery 07/03/19 where they did reconstruction of lat ligaments of RLE (R calcaneus osteotomy, lat per longus to brevis, lat lig reconstruction (talofib/calcaneofib lig) w/ post tib tendon lengthening). Pain is about 2-3 unless he he hits it hard on accident. His exercises hurt but he does them daily. Pt reports pain level is manageable and is only using tylenol. Pt wearing boot at all times except during icing and exercises. 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 Pt reprots he is typically very active but has not been doing much d/t WB restricitons . He has a 2 level house but is staying on one level. He was able to go up/down them. Pt reports just starting to put weight on it on Wednesday. Pt reports follows up with MD in 5 weeks. Treatment Goals Patient/Caregiver Goals Pt wants to return hunting and hiking, not have his ankle limit him PT-OP-C Subjective Start: 08/23/19 17:46 Freq: Status: Active Protocol: Document 11/13/19 10:39 [facility] (Rec: 11/13/19 14:11 [facility] [id number]) OP-PT Subjective Patient Comments Patient Comments Pt reports he is doing better with his pain but his ankle is doing okay, R hip and Lat lower leg are what give him the most trouble. PT-OP-F Manual Assessment Start: 08/23/19 17:46 Freq: Status: Active Protocol: Document 08/24/19 10:41 [facility] (Rec: 08/24/19 12:16 [facility] [id number]) Manual Assessments Soft Tissue Assessment Soft Tissue Mobility Assessment incisions not fully healed, still scabbed over PT-OP-G Mobility & Gait Start: 08/23/19 17:46 Freq: Status: Active Protocol: Document 08/24/19 10:41 [facility] (Rec: 08/24/19 12:16 [facility] [id number]) OP Gait Assessment Comments Gait Comments Pt amb with crutches w/step through gait with min WB into RLE and appropriate crutch use . He is currently amb with boot. PT-OP-K Range of Motion Start: 08/23/19 17:46 Freq: Status: Active Protocol: Document 11/08/19 14:43 [facility] (Rec: 11/08/19 18:21 [facility] [id number]) Ankle and Foot Goniometric Range of Motion Ankle and Foot Right Active Dorsiflexion with Knee Flexed 7 Dorsiflexion with Knee Extended 13 Inversion 10 Eversion 7 Ankle and Foot ROM Limitations Comments lacking 7 deg DF in seated and 13 in supine PT-OP-M Strength Start: 08/23/19 17:46 Freq: Status: Active Protocol: Document 11/08/19 14:43 [facility] (Rec: 11/08/19 18:21 [facility] [id number]) Hip Strength Hip Manual Muscle Testing Left Flexion (L2) 5 Normal Extension (S1) 4- Good- Abduction 4- Good- External Rotation 5 Normal Internal Rotation 5 Normal Right Flexion (L2) 4+ Good+ Extension (S1) 4- Good- Abduction 3+ Fair+ External Rotation 4 Good Internal Rotation 4- Good- Knee Strength Knee Manual Muscle Testing Right Flexion (S2) 4- Good- Extension (L3) 4+ Good+ Left Flexion (S2) 4 Good Extension (L3) 5 Normal Ankle/Foot Strength Ankle and Foot Manual Muscle Testing Right Dorsiflexion (L4) 4- Good- Plantarflexion (S1) 4- Good- Inversion 3+ Fair+ Eversion (S1) 3+ Fair+ Comments seated PF testing Left Dorsiflexion (L4) 5 Normal Plantarflexion (S1) 5 Normal Inversion 4+ Good+ Eversion (S1) 4+ Good+ PT-OP-Q Treatments Start: 08/23/19 17:46 Freq: Status: Active Protocol: Document 11/13/19 10:39 [facility] (Rec: 11/13/19 14:11 [facility] [id number]) Cardio Equipment Recumbent Elliptical (Biodex) Duration (Minutes) 6 Resistance 3 Seat Position 10 Therapeutic Exercises Supine Exercises n glide Supine Exercise Name sciatic Side right Reps/Minutes 10 Prone Exercises hip rotation Prone Exercise Name ER with focus on pelvis not moving Side right Reps/Minutes 10 Sitting Exercises figure 4 Sitting Exercise Name stretch while STM to scars Gait Training Gait Activity wt shifts Description in mirror with cane with focus on position Manual Therapy Treatment Joint Mobilizations innominate Direction Flex FM hip Direction on axis ER, inf glide FM Neuro Re-Education Treatment Other Activities PNF Details ant elevation/post depression Comments 1. rhythmic initiation 2. COI progressed into LEs PT-OP-T Assessment and Plan Start: 08/23/19 17:46 Freq: Status: Active Protocol: Document 11/13/19 10:39 [facility] (Rec: 11/13/19 14:11 [facility] [id number]) Physical Therapy Assessment Goals FAAM Impairment Short Term Goal (STG) Pt will score 44/84 to show improved functional ability. STG Duration 12/11/19 Nursing Home Goal (LTG) Pt will score 80/84 to show improved functional ability. LTG Duration 02/08/20 activities Short Term Goal (STG) Pt will report going for short walks on flat even surfaces 3x/week. STG Duration achieved Nursing Home Goal (LTG) Pt will report able to return to hiking without increased pain. LTG Duration 02/08/20 gait Short Term Goal (STG) Pt will manav able to amb with boot without crutches with full WB without inc pain greater than 3/10. STG Duration achieved Audit Manager Goal (LTG) Pt will b eable to amb without boot without deviations or pain. LTG Duration 02/08/20 strength Short Term Goal (STG) Pt will be indep with HEP. STG Duration achieved progressing as needed Audit Manager Goal (LTG) Pt will have 5/5 BLE strength in order to allow LTG Duration 02/08/20 ROM Short Term Goal (STG) Pt will improve DF to neutral. STG Duration 11/26/19 Audit Manager Goal (LTG) Pt will have full ROM of R ankle to allow pt do amb up/ down stairs and do functional activities without inc pain. LTG Duration 02/08/20 Assessment Summary Assessment Pt had improved hip motion which allows for improved push off after treatment. He is having impaired gait d/t ankle ROM and hip/lower leg pain that is causing antaglic gait. He required some cueing with n glide and reviewed new exercises to work on mobility. PNF was used to work on gait. Physical Therapy Plan Frequency and Duration Frequency of Treatment 1-2x/week Duration of Treatment 3 months Plan of Care Start Date 11/08/19 Plan of Care End Date 02/08/20 Next Visit Focus/Plan Next Note Type Treatment Note Next Visit Plan Work on treatment to improve function, work on gait mechanics, balance exercises, review HEP as needed, manual for ROM & scar mobs
--- NOTE | 2019-11-22 19:17 | PT.OTN ---
Current Diagnoses Other acquired deformities of right foot (11/22/19) Stiffness of right ankle, not elsewhere classified (11/22/19) Stiffness of right foot, not elsewhere classified (11/22/19) Difficulty in walking, not elsewhere classified (11/22/19) Weakness (11/22/19) Other specified postprocedural states (11/22/19) Physical Therapy Treatment Note PT-OP-A Visit Information Start: 08/23/19 17:46 Freq: Status: Active Protocol: Document 11/22/19 14:35 [facility] (Rec: 11/22/19 18:57 [facility] [id number]) Out-Patient Physical Therapy Visit Information Visit Information Visit Type Treatment Note Visit Start Time 14:32 Visit Stop Time 15:15 Total Visit Minutes 43 Visit Number 01/06 Number of ROTARY ADJUSTER Visits 0 PT-OP-B Current Condition Start: 08/23/19 17:46 Freq: Status: Active Protocol: Document 08/24/19 10:41 [facility] (Rec: 08/24/19 12:16 [facility] [id number]) Current Condition History of Current Condition Onset Date 07/03/19 Current Complaints R ankle sx History of Current Condition Pt reports he had excessive wear and tear with his running and mountain climbing wehre it got to the point he couldn' t walk on uneven ground. He had surgery 07/03/19 where they did reconstruction of lat ligaments of RLE (R calcaneus osteotomy, lat per longus to brevis, lat lig reconstruction (talofib/calcaneofib lig) w/ post tib tendon lengthening). Pain is about 2-3 unless he he hits it hard on accident. His exercises hurt but he does them daily. Pt reports pain level is manageable and is only using tylenol. Pt wearing boot at all times except during icing and exercises. 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 Pt reprots he is typically very active but has not been doing much d/t WB restricitons . He has a 2 level house but is staying on one level. He was able to go up/down them. Pt reports just starting to put weight on it on Wednesday. Pt reports follows up with MD in 5 weeks. Treatment Goals Patient/Caregiver Goals Pt wants to return hunting and hiking, not have his ankle limit him PT-OP-C Subjective Start: 08/23/19 17:46 Freq: Status: Active Protocol: Document 11/22/19 14:35 [facility] (Rec: 11/22/19 18:57 [facility] [id number]) OP-PT Subjective Patient Comments Patient Comments Pt reports ankle feels like it is healing great but his pain from back and down leg into lat lower leg has been very troublesome and painful. Pain is keeping him awake. PT-OP-F Manual Assessment Start: 08/23/19 17:46 Freq: Status: Active Protocol: Document 08/24/19 10:41 [facility] (Rec: 08/24/19 12:16 [facility] [id number]) Manual Assessments Soft Tissue Assessment Soft Tissue Mobility Assessment incisions not fully healed, still scabbed over PT-OP-G Mobility & Gait Start: 08/23/19 17:46 Freq: Status: Active Protocol: Document 08/24/19 10:41 [facility] (Rec: 08/24/19 12:16 [facility] [id number]) OP Gait Assessment Comments Gait Comments Pt amb with crutches w/step through gait with min WB into RLE and appropriate crutch use . He is currently amb with boot. PT-OP-K Range of Motion Start: 08/23/19 17:46 Freq: Status: Active Protocol: Document 11/08/19 14:43 [facility] (Rec: 11/08/19 18:21 [facility] [id number]) Ankle and Foot Goniometric Range of Motion Ankle and Foot Right Active Dorsiflexion with Knee Flexed 7 Dorsiflexion with Knee Extended 13 Inversion 10 Eversion 7 Ankle and Foot ROM Limitations Comments lacking 7 deg DF in seated and 13 in supine PT-OP-M Strength Start: 08/23/19 17:46 Freq: Status: Active Protocol: Document 11/08/19 14:43 [facility] (Rec: 11/08/19 18:21 [facility] [id number]) Hip Strength Hip Manual Muscle Testing Left Flexion (L2) 5 Normal Extension (S1) 4- Good- Abduction 4- Good- External Rotation 5 Normal Internal Rotation 5 Normal Right Flexion (L2) 4+ Good+ Extension (S1) 4- Good- Abduction 3+ Fair+ External Rotation 4 Good Internal Rotation 4- Good- Knee Strength Knee Manual Muscle Testing Right Flexion (S2) 4- Good- Extension (L3) 4+ Good+ Left Flexion (S2) 4 Good Extension (L3) 5 Normal Ankle/Foot Strength Ankle and Foot Manual Muscle Testing Right Dorsiflexion (L4) 4- Good- Plantarflexion (S1) 4- Good- Inversion 3+ Fair+ Eversion (S1) 3+ Fair+ Comments seated PF testing Left Dorsiflexion (L4) 5 Normal Plantarflexion (S1) 5 Normal Inversion 4+ Good+ Eversion (S1) 4+ Good+ PT-OP-Q Treatments Start: 08/23/19 17:46 Freq: Status: Active Protocol: Document 11/22/19 14:35 [facility] (Rec: 11/22/19 18:57 [facility] [id number]) Cardio Equipment Recumbent Elliptical (Biodex) Duration (Minutes) 6 Resistance 3 Seat Position 10 Gym Equipment Shuttle Balance red clips Comments fwd & side: WBOS & NBOS Therapeutic Exercises Standing Exercises calf stretch Standing Exercise Name JEANNIE Side bilateral Reps/Minutes 30sec heel raises Side bilateral Reps/Minutes 2x10 Therapeutic Activity Therapeutic Activity sleep Name supine and s/l sleep psoitions to dec pain Manual Therapy Treatment Soft Tissue Mobilization scar mobility Body Location R ankle scar Mobilization Type Cross-Friction,Myofascial Release Intensity/Depth Moderate Body Position Sitting Manual Techniques manual stretching Type into PF, DF, inversion & eversion PT-OP-T Assessment and Plan Start: 08/23/19 17:46 Freq: Status: Active Protocol: Document 11/22/19 14:35 [facility] (Rec: 11/22/19 18:57 [facility] [id number]) Physical Therapy Assessment Goals FAAM Impairment 2484 Short Term Goal (STG) Pt will score 44/84 to show improved functional ability. STG Duration 12/11/19 Penitentiary Goal (LTG) Pt will score 80/84 to show improved functional ability. LTG Duration 02/08/20 activities Short Term Goal (STG) Pt will report going for short walks on flat even surfaces 3x/week. STG Duration achieved Fibre Composite Technician Goal (LTG) Pt will report able to return to hiking without increased pain. LTG Duration 02/08/20 gait Short Term Goal (STG) Pt will manav able to amb with boot without crutches with full WB without inc pain greater than 3/10. STG Duration achieved Penitentiary Goal (LTG) Pt will b eable to amb without boot without deviations or pain. LTG Duration 02/08/20 strength Short Term Goal (STG) Pt will be indep with HEP. STG Duration achieved progressing as needed Fibre Composite Technician Goal (LTG) Pt will have 5/5 BLE strength in order to allow LTG Duration 02/08/20 ROM Short Term Goal (STG) Pt will improve DF to neutral. STG Duration 11/26/19 Fibre Composite Technician Goal (LTG) Pt will have full ROM of R ankle to allow pt do amb up/ down stairs and do functional activities without inc pain. LTG Duration 02/08/20 Assessment Summary Assessment Pt improved with ROM with STM and PROM with gentle gliding at end ranges. He shows weakness in R calf but is able to do heel raises B with assist of LLE. Improved gait as pt presented to PT today. Physical Therapy Plan Frequency and Duration Frequency of Treatment 1-2x/week Duration of Treatment 3 months Plan of Care Start Date 11/08/19 Plan of Care End Date 02/08/20 Next Visit Focus/Plan Next Note Type Treatment Note Next Visit Plan Work on treatment to improve function, work on gait mechanics, balance exercises, review HEP as needed, manual for ROM & scar mobs
--- NOTE | 2019-11-27 12:27 | PT.OTN ---
Current Diagnoses Other acquired deformities of right foot (11/27/19) Stiffness of right ankle, not elsewhere classified (11/27/19) Stiffness of right foot, not elsewhere classified (11/27/19) Difficulty in walking, not elsewhere classified (11/27/19) Weakness (11/27/19) Other specified postprocedural states (11/27/19) Physical Therapy Treatment Note PT-OP-A Visit Information Start: 08/23/19 17:46 Freq: Status: Active Protocol: Document 11/27/19 08:57 [facility] (Rec: 11/27/19 12:26 [facility] [id number]) Out-Patient Physical Therapy Visit Information Visit Information Visit Type Treatment Note Visit Start Time 10:32 Visit Stop Time 01:15 Total Visit Minutes 43 Visit Number 02/06 Number of CHICKEN HANGER Visits 0 PT-OP-B Current Condition Start: 08/23/19 17:46 Freq: Status: Active Protocol: Document 08/24/19 10:41 [facility] (Rec: 08/24/19 12:16 [facility] [id number]) Current Condition History of Current Condition Onset Date 07/03/19 Current Complaints R ankle sx History of Current Condition Pt reports he had excessive wear and tear with his running and mountain climbing wehre it got to the point he couldn' t walk on uneven ground. He had surgery 07/03/19 where they did reconstruction of lat ligaments of RLE (R calcaneus osteotomy, lat per longus to brevis, lat lig reconstruction (talofib/calcaneofib lig) w/ post tib tendon lengthening). Pain is about 2-3 unless he he hits it hard on accident. His exercises hurt but he does them daily. Pt reports pain level is manageable and is only using tylenol. Pt wearing boot at all times except during icing and exercises. 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 Pt reprots he is typically very active but has not been doing much d/t WB restricitons . He has a 2 level house but is staying on one level. He was able to go up/down them. Pt reports just starting to put weight on it on Wednesday. Pt reports follows up with MD in 5 weeks. Treatment Goals Patient/Caregiver Goals Pt wants to return hunting and hiking, not have his ankle limit him PT-OP-C Subjective Start: 08/23/19 17:46 Freq: Status: Active Protocol: Document 11/27/19 08:57 [facility] (Rec: 11/27/19 12:26 [facility] [id number]) OP-PT Subjective Patient Comments Patient Comments Pt reprots pain down leg is better but notes LB hurting. ankle doing well Patient Reported Progress Improving PT-OP-F Manual Assessment Start: 08/23/19 17:46 Freq: Status: Active Protocol: Document 08/24/19 10:41 [facility] (Rec: 08/24/19 12:16 [facility] [id number]) Manual Assessments Soft Tissue Assessment Soft Tissue Mobility Assessment incisions not fully healed, still scabbed over PT-OP-G Mobility & Gait Start: 08/23/19 17:46 Freq: Status: Active Protocol: Document 08/24/19 10:41 [facility] (Rec: 08/24/19 12:16 [facility] [id number]) OP Gait Assessment Comments Gait Comments Pt amb with crutches w/step through gait with min WB into RLE and appropriate crutch use . He is currently amb with boot. PT-OP-K Range of Motion Start: 08/23/19 17:46 Freq: Status: Active Protocol: Document 11/08/19 14:43 [facility] (Rec: 11/08/19 18:21 [facility] [id number]) Ankle and Foot Goniometric Range of Motion Ankle and Foot Right Active Dorsiflexion with Knee Flexed 7 Dorsiflexion with Knee Extended 13 Inversion 10 Eversion 7 Ankle and Foot ROM Limitations Comments lacking 7 deg DF in seated and 13 in supine PT-OP-M Strength Start: 08/23/19 17:46 Freq: Status: Active Protocol: Document 11/08/19 14:43 [facility] (Rec: 11/08/19 18:21 [facility] [id number]) Hip Strength Hip Manual Muscle Testing Left Flexion (L2) 5 Normal Extension (S1) 4- Good- Abduction 4- Good- External Rotation 5 Normal Internal Rotation 5 Normal Right Flexion (L2) 4+ Good+ Extension (S1) 4- Good- Abduction 3+ Fair+ External Rotation 4 Good Internal Rotation 4- Good- Knee Strength Knee Manual Muscle Testing Right Flexion (S2) 4- Good- Extension (L3) 4+ Good+ Left Flexion (S2) 4 Good Extension (L3) 5 Normal Ankle/Foot Strength Ankle and Foot Manual Muscle Testing Right Dorsiflexion (L4) 4- Good- Plantarflexion (S1) 4- Good- Inversion 3+ Fair+ Eversion (S1) 3+ Fair+ Comments seated PF testing Left Dorsiflexion (L4) 5 Normal Plantarflexion (S1) 5 Normal Inversion 4+ Good+ Eversion (S1) 4+ Good+ PT-OP-Q Treatments Start: 08/23/19 17:46 Freq: Status: Active Protocol: Document 11/27/19 08:57 [facility] (Rec: 11/27/19 12:26 [facility] [id number]) Cardio Equipment Recumbent Elliptical (Biodex) Duration (Minutes) 4 Resistance 3 Seat Position 10 Gym Equipment Shuttle Balance red clips Comments fwd & side: WBOS & NBOS & tipping Therapeutic Exercises Standing Exercises calf stretch Standing Exercise Name JEANNIE Side bilateral Reps/Minutes 30sec heel raises Standing Exercise Name 75% on R Side bilateral Reps/Minutes 2x10 Gait Training Gait Activity gait Comments 1. focus on pudh off 2. dowel resisted Manual Therapy Treatment Soft Tissue Mobilization QL Body Location QL and along ant iliac crest Mobilization Type Sustained Pressure Neuro Re-Education Treatment Balance Activities tandem Details stance SLS Details in mirror PT-OP-T Assessment and Plan Start: 08/23/19 17:46 Freq: Status: Active Protocol: Document 11/27/19 08:57 [facility] (Rec: 11/27/19 12:26 [facility] [id number]) Physical Therapy Assessment Goals FAAM Impairment 24/84 Short Term Goal (STG) Pt will score 44/84 to show improved functional ability. STG Duration 12/11/19 Custodial Goal (LTG) Pt will score 80/84 to show improved functional ability. LTG Duration 02/08/20 activities Short Term Goal (STG) Pt will report going for short walks on flat even surfaces 3x/week. STG Duration achieved Custodial Goal (LTG) Pt will report able to return to hiking without increased pain. LTG Duration 02/08/20 gait Short Term Goal (STG) Pt will manav able to amb with boot without crutches with full WB without inc pain greater than 3/10. STG Duration achieved Custodial Goal (LTG) Pt will b eable to amb without boot without deviations or pain. LTG Duration 02/08/20 strength Short Term Goal (STG) Pt will be indep with HEP. STG Duration achieved progressing as needed Custodial Goal (LTG) Pt will have 5/5 BLE strength in order to allow LTG Duration 02/08/20 ROM Short Term Goal (STG) Pt will improve DF to neutral. STG Duration 11/26/19 Circular Shear Operator Goal (LTG) Pt will have full ROM of R ankle to allow pt do amb up/ down stairs and do functional activities without inc pain. LTG Duration 02/08/20 Assessment Summary Assessment Pain in back limits pt's ability to perform SLS and work on push off fully. He has inability to perfrom appropriate pelvic PNF patterns necessary for gait but improved with manual Physical Therapy Plan Frequency and Duration Frequency of Treatment 1-2x/week Duration of Treatment 3 months Plan of Care Start Date 11/08/19 Plan of Care End Date 02/08/20 Next Visit Focus/Plan Next Note Type Treatment Note Next Visit Plan Work on PNF for gait, cont tow ork on balance
--- NOTE | 2019-12-04 12:47 | PT.OTN ---
Current Diagnoses Other acquired deformities of right foot (12/04/19) Stiffness of right ankle, not elsewhere classified (12/04/19) Stiffness of right foot, not elsewhere classified (12/04/19) Difficulty in walking, not elsewhere classified (12/04/19) Weakness (12/04/19) Other specified postprocedural states (12/04/19) Physical Therapy Treatment Note PT-OP-A Visit Information Start: 08/23/19 17:46 Freq: Status: Active Protocol: Document 12/04/19 09:54 [facility] (Rec: 12/04/19 10:34 [facility] [id number]) Out-Patient Physical Therapy Visit Information Visit Information Visit Type Treatment Note Visit Start Time 09:48 Visit Stop Time 10:30 Total Visit Minutes 42 Visit Number 03/09 Number of FOOD SERVICE ATTENDANT Visits 0 PT-OP-B Current Condition Start: 08/23/19 17:46 Freq: Status: Active Protocol: Document 08/24/19 10:41 [facility] (Rec: 08/24/19 12:16 [facility] [id number]) Current Condition History of Current Condition Onset Date 07/03/19 Current Complaints R ankle sx History of Current Condition Pt reports he had excessive wear and tear with his running and mountain climbing wehre it got to the point he couldn' t walk on uneven ground. He had surgery 07/03/19 where they did reconstruction of lat ligaments of RLE (R calcaneus osteotomy, lat per longus to brevis, lat lig reconstruction (talofib/calcaneofib lig) w/ post tib tendon lengthening). Pain is about 2-3 unless he he hits it hard on accident. His exercises hurt but he does them daily. Pt reports pain level is manageable and is only using tylenol. Pt wearing boot at all times except during icing and exercises. 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 Pt reprots he is typically very active but has not been doing much d/t WB restricitons . He has a 2 level house but is staying on one level. He was able to go up/down them. Pt reports just starting to put weight on it on Wednesday. Pt reports follows up with MD in 5 weeks. Treatment Goals Patient/Caregiver Goals Pt wants to return hunting and hiking, not have his ankle limit him PT-OP-C Subjective Start: 08/23/19 17:46 Freq: Status: Active Protocol: Document 12/04/19 09:54 [facility] (Rec: 12/04/19 10:34 [facility] [id number]) OP-PT Subjective Patient Comments Patient Comments Pt reports doing better. Has been walking 1.5 miles a day and did one small [place] walk PT-OP-F Manual Assessment Start: 08/23/19 17:46 Freq: Status: Active Protocol: Document 08/24/19 10:41 [facility] (Rec: 08/24/19 12:16 [facility] [id number]) Manual Assessments Soft Tissue Assessment Soft Tissue Mobility Assessment incisions not fully healed, still scabbed over PT-OP-G Mobility & Gait Start: 08/23/19 17:46 Freq: Status: Active Protocol: Document 08/24/19 10:41 [facility] (Rec: 08/24/19 12:16 [facility] [id number]) OP Gait Assessment Comments Gait Comments Pt amb with crutches w/step through gait with min WB into RLE and appropriate crutch use . He is currently amb with boot. PT-OP-K Range of Motion Start: 08/23/19 17:46 Freq: Status: Active Protocol: Document 11/08/19 14:43 [facility] (Rec: 11/08/19 18:21 [facility] [id number]) Ankle and Foot Goniometric Range of Motion Ankle and Foot Right Active Dorsiflexion with Knee Flexed 7 Dorsiflexion with Knee Extended 13 Inversion 10 Eversion 7 Ankle and Foot ROM Limitations Comments lacking 7 deg DF in seated and 13 in supine PT-OP-M Strength Start: 08/23/19 17:46 Freq: Status: Active Protocol: Document 11/08/19 14:43 [facility] (Rec: 11/08/19 18:21 [facility] [id number]) Hip Strength Hip Manual Muscle Testing Left Flexion (L2) 5 Normal Extension (S1) 4- Good- Abduction 4- Good- External Rotation 5 Normal Internal Rotation 5 Normal Right Flexion (L2) 4+ Good+ Extension (S1) 4- Good- Abduction 3+ Fair+ External Rotation 4 Good Internal Rotation 4- Good- Knee Strength Knee Manual Muscle Testing Right Flexion (S2) 4- Good- Extension (L3) 4+ Good+ Left Flexion (S2) 4 Good Extension (L3) 5 Normal Ankle/Foot Strength Ankle and Foot Manual Muscle Testing Right Dorsiflexion (L4) 4- Good- Plantarflexion (S1) 4- Good- Inversion 3+ Fair+ Eversion (S1) 3+ Fair+ Comments seated PF testing Left Dorsiflexion (L4) 5 Normal Plantarflexion (S1) 5 Normal Inversion 4+ Good+ Eversion (S1) 4+ Good+ PT-OP-Q Treatments Start: 08/23/19 17:46 Freq: Status: Active Protocol: Document 12/04/19 09:54 [facility] (Rec: 12/04/19 10:34 [facility] [id number]) Cardio Equipment Elliptical Duration (Minutes) 8 Resistance 1 Gym Equipment Shuttle Balance red clips Comments fwd & side: WBOS & NBOS & wt shifts & staggered stance EC when pt could Sport Cord walking Cord/Resistance red Reps/Duration 8 Comments focus on push off wt shifts Exercise Details in mirror Cord/Resistance red Reps/Duration 8 B Therapeutic Exercises Standing Exercises heel raises Standing Exercise Name 75% on R Side bilateral Reps/Minutes 2x10 Comments work on full range with R Gait Training Gait Activity gait Comments 1. focus on push off Manual Therapy Treatment Soft Tissue Mobilization scar mobility Body Location R ankle scar Mobilization Type Cross-Friction,Myofascial Release Intensity/Depth Moderate Body Position Sitting R ankle Body Location ant ankle Mobilization Type Myofascial Release Comments w/PF/DF PT-OP-T Assessment and Plan Start: 08/23/19 17:46 Freq: Status: Active Protocol: Document 12/04/19 09:54 [facility] (Rec: 12/04/19 10:34 [facility] [id number]) Physical Therapy Assessment Goals FAAM Impairment 24 Short Term Goal (STG) Pt will score 44/84 to show improved functional ability. STG Duration 12/11/19 Button Attaching Machine Operator Goal (LTG) Pt will score 80/84 to show improved functional ability. LTG Duration 02/08/20 activities Short Term Goal (STG) Pt will report going for short walks on flat even surfaces 3x/week. STG Duration achieved Half-Way Goal (LTG) Pt will report able to return to hiking without increased pain. LTG Duration 02/08/20 gait Short Term Goal (STG) Pt will manav able to amb with boot without crutches with full WB without inc pain greater than 3/10. STG Duration achieved Button Attaching Machine Operator Goal (LTG) Pt will b eable to amb without boot without deviations or pain. LTG Duration 02/08/20 strength Short Term Goal (STG) Pt will be indep with HEP. STG Duration achieved progressing as needed Half-Way Goal (LTG) Pt will have 5/5 BLE strength in order to allow LTG Duration 02/08/20 ROM Short Term Goal (STG) Pt will improve DF to neutral. STG Duration 11/26/19 Half-Way Goal (LTG) Pt will have full ROM of R ankle to allow pt do amb up/ down stairs and do functional activities without inc pain. LTG Duration 02/08/20 Assessment Summary Assessment Pt is imprvoing with balance and gait but is limited with push off by calf strengtha nd end range PF ROM. He was instructed to focus on these things at home and verbaly agreed to work on it. He did well with resistance for gait. Physical Therapy Plan Frequency and Duration Frequency of Treatment 1-2x/week Duration of Treatment 3 months Plan of Care Start Date 11/08/19 Plan of Care End Date 02/08/20 Next Visit Focus/Plan Next Note Type Treatment Note Next Visit Plan Work on PNF for gait, cont tow ork on balance
--- NOTE | 2019-12-11 12:11 | PT.OTN ---
Current Diagnoses Other acquired deformities of right foot (12/11/19) Stiffness of right ankle, not elsewhere classified (12/11/19) Stiffness of right foot, not elsewhere classified (12/11/19) Difficulty in walking, not elsewhere classified (12/11/19) Weakness (12/11/19) Other specified postprocedural states (12/11/19) Physical Therapy Treatment Note PT-OP-A Visit Information Start: 08/23/19 17:46 Freq: Status: Active Protocol: Document 12/11/19 11:22 [facility] (Rec: 12/11/19 12:11 [facility] [id number]) Out-Patient Physical Therapy Visit Information Visit Information Visit Type Treatment Note Visit Start Time 11:19 Visit Stop Time 11:59 Total Visit Minutes 40 Visit Number 04/08 Number of PLATE DEVELOPER Visits 0 PT-OP-B Current Condition Start: 08/23/19 17:46 Freq: Status: Active Protocol: Document 08/24/19 10:41 [facility] (Rec: 08/24/19 12:16 [facility] [id number]) Current Condition History of Current Condition Onset Date 07/03/19 Current Complaints R ankle sx History of Current Condition Pt reports he had excessive wear and tear with his running and mountain climbing wehre it got to the point he couldn' t walk on uneven ground. He had surgery 07/03/19 where they did reconstruction of lat ligaments of RLE (R calcaneus osteotomy, lat per longus to brevis, lat lig reconstruction (talofib/calcaneofib lig) w/ post tib tendon lengthening). Pain is about 2-3 unless he he hits it hard on accident. His exercises hurt but he does them daily. Pt reports pain level is manageable and is only using tylenol. Pt wearing boot at all times except during icing and exercises. 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 Pt reprots he is typically very active but has not been doing much d/t WB restricitons . He has a 2 level house but is staying on one level. He was able to go up/down them. Pt reports just starting to put weight on it on Wednesday. Pt reports follows up with MD in 5 weeks. Treatment Goals Patient/Caregiver Goals Pt wants to return hunting and hiking, not have his ankle limit him PT-OP-C Subjective Start: 08/23/19 17:46 Freq: Status: Active Protocol: Document 12/11/19 11:22 [facility] (Rec: 12/11/19 12:11 [facility] [id number]) OP-PT Subjective Patient Comments Patient Comments Pt reports he walked on the trails and went on a few trails that he hadn't done yet and ended up going up/down more hills and is sore today all around ankle. His ankle did swell up and he did ice. PT-OP-F Manual Assessment Start: 08/23/19 17:46 Freq: Status: Active Protocol: Document 08/24/19 10:41 [facility] (Rec: 08/24/19 12:16 [facility] [id number]) Manual Assessments Soft Tissue Assessment Soft Tissue Mobility Assessment incisions not fully healed, still scabbed over PT-OP-G Mobility & Gait Start: 08/23/19 17:46 Freq: Status: Active Protocol: Document 08/24/19 10:41 [facility] (Rec: 08/24/19 12:16 [facility] [id number]) OP Gait Assessment Comments Gait Comments Pt amb with crutches w/step through gait with min WB into RLE and appropriate crutch use . He is currently amb with boot. PT-OP-K Range of Motion Start: 08/23/19 17:46 Freq: Status: Active Protocol: Document 11/08/19 14:43 [facility] (Rec: 11/08/19 18:21 [facility] [id number]) Ankle and Foot Goniometric Range of Motion Ankle and Foot Right Active Dorsiflexion with Knee Flexed 7 Dorsiflexion with Knee Extended 13 Inversion 10 Eversion 7 Ankle and Foot ROM Limitations Comments lacking 7 deg DF in seated and 13 in supine PT-OP-M Strength Start: 08/23/19 17:46 Freq: Status: Active Protocol: Document 11/08/19 14:43 [facility] (Rec: 11/08/19 18:21 [facility] [id number]) Hip Strength Hip Manual Muscle Testing Left Flexion (L2) 5 Normal Extension (S1) 4- Good- Abduction 4- Good- External Rotation 5 Normal Internal Rotation 5 Normal Right Flexion (L2) 4+ Good+ Extension (S1) 4- Good- Abduction 3+ Fair+ External Rotation 4 Good Internal Rotation 4- Good- Knee Strength Knee Manual Muscle Testing Right Flexion (S2) 4- Good- Extension (L3) 4+ Good+ Left Flexion (S2) 4 Good Extension (L3) 5 Normal Ankle/Foot Strength Ankle and Foot Manual Muscle Testing Right Dorsiflexion (L4) 4- Good- Plantarflexion (S1) 4- Good- Inversion 3+ Fair+ Eversion (S1) 3+ Fair+ Comments seated PF testing Left Dorsiflexion (L4) 5 Normal Plantarflexion (S1) 5 Normal Inversion 4+ Good+ Eversion (S1) 4+ Good+ PT-OP-Q Treatments Start: 08/23/19 17:46 Freq: Status: Active Protocol: Document 12/11/19 11:22 [facility] (Rec: 12/11/19 12:11 [facility] [id number]) Cardio Equipment Recumbent Elliptical (Biodex) Duration (Minutes) 5 Resistance 5 Seat Position 10 Gym Equipment Shuttle Balance red clips Comments fwd & side: WBOS & NBOS & wt shifts & staggered stance head turns when pt could Therapeutic Exercises Standing Exercises calf stretch Standing Exercise Name JEANNIE stretch & ant foot/lower leg Manual Therapy Treatment Soft Tissue Mobilization scar mobility Body Location R ankle scar Mobilization Type Cross-Friction,Myofascial Release Intensity/Depth Moderate Body Position Sitting R ankle Body Location ant ankle Mobilization Type Myofascial Release Comments w/PF/DF Joint Mobilizations talar Joint distraction Grade II calcaneus Joint distraction Grade II PT-OP-T Assessment and Plan Start: 08/23/19 17:46 Freq: Status: Active Protocol: Document 12/11/19 11:22 [facility] (Rec: 12/11/19 12:11 [facility] [id number]) Physical Therapy Assessment Goals FAAM Impairment 24 Short Term Goal (STG) Pt will score 44/84 to show improved functional ability. STG Duration 12/11/19 Mcc Goal (LTG) Pt will score 80/84 to show improved functional ability. LTG Duration 02/08/20 activities Short Term Goal (STG) Pt will report going for short walks on flat even surfaces 3x/week. STG Duration achieved Caster Investment Casting Goal (LTG) Pt will report able to return to hiking without increased pain. LTG Duration 02/08/20 gait Short Term Goal (STG) Pt will manav able to amb with boot without crutches with full WB without inc pain greater than 3/10. STG Duration achieved Mcc Goal (LTG) Pt will b eable to amb without boot without deviations or pain. LTG Duration 02/08/20 strength Short Term Goal (STG) Pt will be indep with HEP. STG Duration achieved progressing as needed Caster Investment Casting Goal (LTG) Pt will have 5/5 BLE strength in order to allow LTG Duration 02/08/20 ROM Short Term Goal (STG) Pt will improve DF to neutral. STG Duration 11/26/19 Mcc Goal (LTG) Pt will have full ROM of R ankle to allow pt do amb up/ down stairs and do functional activities without inc pain. LTG Duration 02/08/20 Assessment Summary Assessment Pt improved with PF and DF with dec pain after mnaul treatment. He cont to do well with balance exercsies and progress. Physical Therapy Plan Frequency and Duration Frequency of Treatment 1-2x/week Duration of Treatment 3 months Plan of Care Start Date 11/08/19 Plan of Care End Date 02/08/20 Next Visit Focus/Plan Next Note Type Treatment Note Next Visit Plan Work on PNF for gait, cont tow ork on balance & manual therapy for ROM
--- NOTE | 2019-12-18 12:16 | PT.OTN ---
Current Diagnoses Other acquired deformities of right foot (12/18/19) Stiffness of right ankle, not elsewhere classified (12/18/19) Stiffness of right foot, not elsewhere classified (12/18/19) Difficulty in walking, not elsewhere classified (12/18/19) Weakness (12/18/19) Other specified postprocedural states (12/18/19) Physical Therapy Treatment Note PT-OP-A Visit Information Start: 08/23/19 17:46 Freq: Status: Active Protocol: Document 12/18/19 11:20 [facility] (Rec: 12/18/19 12:16 [facility] [id number]) Out-Patient Physical Therapy Visit Information Visit Information Visit Type Treatment Note Visit Start Time 11:16 Visit Stop Time 11:58 Total Visit Minutes 42 Visit Number 05/09 Number of MARKETING STRATEGY MANAGER Visits 0 PT-OP-B Current Condition Start: 08/23/19 17:46 Freq: Status: Active Protocol: Document 08/24/19 10:41 [facility] (Rec: 08/24/19 12:16 [facility] [id number]) Current Condition History of Current Condition Onset Date 07/03/19 Current Complaints R ankle sx History of Current Condition Pt reports he had excessive wear and tear with his running and mountain climbing wehre it got to the point he couldn' t walk on uneven ground. He had surgery 07/03/19 where they did reconstruction of lat ligaments of RLE (R calcaneus osteotomy, lat per longus to brevis, lat lig reconstruction (talofib/calcaneofib lig) w/ post tib tendon lengthening). Pain is about 2-3 unless he he hits it hard on accident. His exercises hurt but he does them daily. Pt reports pain level is manageable and is only using tylenol. Pt wearing boot at all times except during icing and exercises. 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 Pt reprots he is typically very active but has not been doing much d/t WB restricitons . He has a 2 level house but is staying on one level. He was able to go up/down them. Pt reports just starting to put weight on it on Wednesday. Pt reports follows up with MD in 5 weeks. Treatment Goals Patient/Caregiver Goals Pt wants to return hunting and hiking, not have his ankle limit him PT-OP-C Subjective Start: 08/23/19 17:46 Freq: Status: Active Protocol: Document 12/18/19 11:20 [facility] (Rec: 12/18/19 12:16 [facility] [id number]) OP-PT Subjective Patient Comments Patient Comments Pt reprots he has been waking up and going for walks d't pain in hip and it improves his pain. This AM was not as bad. PT-OP-F Manual Assessment Start: 08/23/19 17:46 Freq: Status: Active Protocol: Document 08/24/19 10:41 [facility] (Rec: 08/24/19 12:16 [facility] [id number]) Manual Assessments Soft Tissue Assessment Soft Tissue Mobility Assessment incisions not fully healed, still scabbed over PT-OP-G Mobility & Gait Start: 08/23/19 17:46 Freq: Status: Active Protocol: Document 08/24/19 10:41 [facility] (Rec: 08/24/19 12:16 [facility] [id number]) OP Gait Assessment Comments Gait Comments Pt amb with crutches w/step through gait with min WB into RLE and appropriate crutch use . He is currently amb with boot. PT-OP-K Range of Motion Start: 08/23/19 17:46 Freq: Status: Active Protocol: Document 11/08/19 14:43 [facility] (Rec: 11/08/19 18:21 [facility] [id number]) Ankle and Foot Goniometric Range of Motion Ankle and Foot Right Active Dorsiflexion with Knee Flexed 7 Dorsiflexion with Knee Extended 13 Inversion 10 Eversion 7 Ankle and Foot ROM Limitations Comments lacking 7 deg DF in seated and 13 in supine PT-OP-M Strength Start: 08/23/19 17:46 Freq: Status: Active Protocol: Document 11/08/19 14:43 [facility] (Rec: 11/08/19 18:21 [facility] [id number]) Hip Strength Hip Manual Muscle Testing Left Flexion (L2) 5 Normal Extension (S1) 4- Good- Abduction 4- Good- External Rotation 5 Normal Internal Rotation 5 Normal Right Flexion (L2) 4+ Good+ Extension (S1) 4- Good- Abduction 3+ Fair+ External Rotation 4 Good Internal Rotation 4- Good- Knee Strength Knee Manual Muscle Testing Right Flexion (S2) 4- Good- Extension (L3) 4+ Good+ Left Flexion (S2) 4 Good Extension (L3) 5 Normal Ankle/Foot Strength Ankle and Foot Manual Muscle Testing Right Dorsiflexion (L4) 4- Good- Plantarflexion (S1) 4- Good- Inversion 3+ Fair+ Eversion (S1) 3+ Fair+ Comments seated PF testing Left Dorsiflexion (L4) 5 Normal Plantarflexion (S1) 5 Normal Inversion 4+ Good+ Eversion (S1) 4+ Good+ PT-OP-Q Treatments Start: 08/23/19 17:46 Freq: Status: Active Protocol: Document 12/18/19 11:20 [facility] (Rec: 12/18/19 12:16 [facility] [id number]) Cardio Equipment Elliptical Duration (Minutes) 6 Resistance 1 Therapeutic Exercises Standing Exercises calf stretch Standing Exercise Name on step Reps/Minutes 30 sec heel raises Standing Exercise Name on ground then on step Side bilateral Reps/Minutes [address] Manual Therapy Treatment Soft Tissue Mobilization post chain Body Location achilles, lat calf, plantar fascia Mobilization Type Rolling Intensity/Depth Moderate Neuro Re-Education Treatment Balance Activities backwards walk Reps/Duration 50ft head turns Details vertical and horizontal Reps/Duration 50ftx2 ea EC Details walking fwd Reps/Duration 50ft tandem Details stance w/head turns PT-OP-T Assessment and Plan Start: 08/23/19 17:46 Freq: Status: Active Protocol: Document 12/18/19 11:20 [facility] (Rec: 12/18/19 12:16 [facility] [id number]) Physical Therapy Assessment Goals FAAM Impairment 24/84 Short Term Goal (STG) Pt will score 44/84 to show improved functional ability. STG Duration 12/11/19 Half-Way Goal (LTG) Pt will score 80/84 to show improved functional ability. LTG Duration 02/08/20 activities Short Term Goal (STG) Pt will report going for short walks on flat even surfaces 3x/week. STG Duration achieved Half-Way Goal (LTG) Pt will report able to return to hiking without increased pain. LTG Duration 02/08/20 gait Short Term Goal (STG) Pt will manav able to amb with boot without crutches with full WB without inc pain greater than 3/10. STG Duration achieved Investigative Assistant Goal (LTG) Pt will b eable to amb without boot without deviations or pain. LTG Duration 02/08/20 strength Short Term Goal (STG) Pt will be indep with HEP. STG Duration achieved progressing as needed Half-Way Goal (LTG) Pt will have 5/5 BLE strength in order to allow LTG Duration 02/08/20 ROM Short Term Goal (STG) Pt will improve DF to neutral. STG Duration 11/26/19 Half-Way Goal (LTG) Pt will have full ROM of R ankle to allow pt do amb up/ down stairs and do functional activities without inc pain. LTG Duration 02/08/20 Assessment Summary Assessment Pt has tightness in post chain and plantar fascia that likely limits his range of motion. He is improving in all mobility and strength but does fatigue with calf strengthening exercises. Physical Therapy Plan Frequency and Duration Frequency of Treatment 1-2x/week Duration of Treatment 3 months Plan of Care Start Date 11/08/19 Plan of Care End Date 02/08/20 Next Visit Focus/Plan Next Note Type Treatment Note Next Visit Plan PNF and gait training
--- NOTE | 2019-12-26 08:41 | PT.OPPN ---
Current Diagnoses Other acquired deformities of right foot (12/25/19) Stiffness of right ankle, not elsewhere classified (12/25/19) Stiffness of right foot, not elsewhere classified (12/25/19) Difficulty in walking, not elsewhere classified (12/25/19) Weakness (12/25/19) Other specified postprocedural states (12/25/19) Physical Therapy Progress Note PT-OP-A Visit Information Start: 08/23/19 17:46 Freq: Status: Active Protocol: Document 12/25/19 13:52 [facility] (Rec: 12/25/19 14:41 [facility] [id number]) Out-Patient Physical Therapy Visit Information Visit Information Visit Type Progress Note Visit Start Time 13:45 Visit Stop Time 14:30 Total Visit Minutes 45 Visit Number 06/08 PT-OP-B Current Condition Start: 08/23/19 17:46 Freq: Status: Active Protocol: Document 08/24/19 10:41 [facility] (Rec: 08/24/19 12:16 [facility] [id number]) Current Condition History of Current Condition Onset Date 07/03/19 Current Complaints R ankle sx History of Current Condition Pt reports he had excessive wear and tear with his running and mountain climbing wehre it got to the point he couldn' t walk on uneven ground. He had surgery 07/03/19 where they did reconstruction of lat ligaments of RLE (R calcaneus osteotomy, lat per longus to brevis, lat lig reconstruction (talofib/calcaneofib lig) w/ post tib tendon lengthening). Pain is about 2-3 unless he he hits it hard on accident. His exercises hurt but he does them daily. Pt reports pain level is manageable and is only using tylenol. Pt wearing boot at all times except during icing and exercises. 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 Pt reprots he is typically very active but has not been doing much d/t WB restricitons . He has a 2 level house but is staying on one level. He was able to go up/down them. Pt reports just starting to put weight on it on Wednesday. Pt reports follows up with MD in 5 weeks. Treatment Goals Patient/Caregiver Goals Pt wants to return hunting and hiking, not have his ankle limit him PT-OP-C Subjective Start: 02/26/20 17:46 Freq: Status: Active Protocol: Document 12/25/19 13:52 [facility] (Rec: 12/25/19 14:41 [facility] [id number]) OP-PT Subjective Patient Comments Patient Comments Pt reports he walked [place] and was sore after he was at the top for a bit and painful going down. Pt notes inc swelling. PT-OP-F Manual Assessment Start: 08/23/19 17:46 Freq: Status: Active Protocol: Document 08/24/19 10:41 [facility] (Rec: 08/24/19 12:16 [facility] [id number]) Manual Assessments Soft Tissue Assessment Soft Tissue Mobility Assessment incisions not fully healed, still scabbed over PT-OP-G Mobility & Gait Start: 08/23/19 17:46 Freq: Status: Active Protocol: Document 08/24/19 10:41 [facility] (Rec: 08/24/19 12:16 [facility] [id number]) OP Gait Assessment Comments Gait Comments Pt amb with crutches w/step through gait with min WB into RLE and appropriate crutch use . He is currently amb with boot. PT-OP-K Range of Motion Start: 08/23/19 17:46 Freq: Status: Active Protocol: Document 12/25/19 13:52 [facility] (Rec: 12/25/19 14:41 [facility] [id number]) Ankle and Foot Goniometric Range of Motion Ankle and Foot Measured in Degrees Right Active Dorsiflexion with Knee Flexed 0 Dorsiflexion with Knee Extended 9 Plantarflexion 38 Inversion 14 Eversion 8 Ankle and Foot ROM Limitations Comments lacking 9 deg w/knee ext PT-OP-M Strength Start: 08/23/19 17:46 Freq: Status: Active Protocol: Document 12/25/19 13:52 [facility] (Rec: 12/25/19 14:41 [facility] [id number]) Hip Strength Hip Manual Muscle Testing Left Flexion (L2) 5 Normal Extension (S1) 3+ Fair+ Abduction 5 Normal External Rotation 5 Normal Internal Rotation 4+ Good+ Right Flexion (L2) 5 Normal Extension (S1) 3+ Fair+ Abduction 4 Good External Rotation 4 Good Internal Rotation 4- Good- Comments pain in R knee Knee Strength Knee Manual Muscle Testing Right Flexion (S2) 4+ Good+ Extension (L3) 5 Normal Left Flexion (S2) 5 Normal Extension (L3) 5 Normal Ankle/Foot Strength Ankle and Foot Manual Muscle Testing Right Dorsiflexion (L4) 4- Good- Plantarflexion (S1) 4 Good Inversion 3+ Fair+ Eversion (S1) 4- Good- Comments seated PF testing Left Dorsiflexion (L4) 5 Normal Plantarflexion (S1) 5 Normal Inversion 4+ Good+ Eversion (S1) 5 Normal Comments PF tested seated PT-OP-T Assessment and Plan Start: 08/23/19 17:46 Freq: Status: Active Protocol: Document 12/25/19 13:52 [facility] (Rec: 12/25/19 14:41 [facility] [id number]) Physical Therapy Assessment Goals FAAM Impairment Short Term Goal (STG) Pt will score 44/84 to show improved functional ability. STG Duration 12/11/19 Group Home Goal (LTG) Pt will score 80/84 to show improved functional ability. LTG Duration 02/08/20 activities Short Term Goal (STG) Pt will report going for short walks on flat even surfaces 3x/week. STG Duration achieved Group Home Goal (LTG) Pt will report able to return to hiking without increased pain. LTG Duration 02/08/20 gait Short Term Goal (STG) Pt will manav able to amb with boot without crutches with full WB without inc pain greater than 3/10. STG Duration achieved Radio Time Salesperson Goal (LTG) Pt will b eable to amb without boot without deviations or pain. LTG Duration 02/08/20 strength Short Term Goal (STG) Pt will be indep with HEP. STG Duration achieved progressing as needed Group Home Goal (LTG) Pt will have 5/5 BLE strength in order to allow LTG Duration 02/08/20 ROM Short Term Goal (STG) Pt will improve DF to neutral. STG Duration 11/26/19 Radio Time Salesperson Goal (LTG) Pt will have full ROM of R ankle to allow pt do amb up/ down stairs and do functional activities without inc pain. LTG Duration 02/08/20 Assessment Summary Assessment Pt is making excellent improvements with ROM, strength, balance and gait, but is still significantly limited from his typical level of function. He is increasing his ambulation distance but has overdone multiple times causing increased pain. He would benefit from cont therpay to cont to work on balance, gait, strength and ankle ROM. Physical Therapy Plan Frequency and Duration Frequency of Treatment 1-2x/week Duration of Treatment 3 months Plan of Care Start Date 11/08/19 Plan of Care End Date 02/08/20 Next Visit Focus/Plan Next Note Type Treatment Note Next Visit Plan PNF and gait training & manual for pattie
--- NOTE | 2020-03-26 14:34 | PT.OTN ---
Current Diagnoses Other acquired deformities of right foot (03/26/20) Stiffness of right ankle, not elsewhere classified (03/26/20) Stiffness of right foot, not elsewhere classified (03/26/20) Difficulty in walking, not elsewhere classified (03/26/20) Weakness (03/26/20) Other specified postprocedural states (03/26/20) Physical Therapy Treatment Note PT-OP-A Visit Information Start: 08/23/19 17:46 Freq: Status: Active Protocol: Document 03/26/20 09:02 [facility] (Rec: 03/26/20 10:22 [facility] [id number]) Out-Patient Physical Therapy Visit Information Visit Information Visit Type Treatment Note Visit Start Time 09:00 Visit Stop Time 09:48 Total Visit Minutes 48 Visit Number Number of VIRTUAL CUSTOMER ASSISTANT Visits 0 PT-OP-B Current Condition Start: 08/23/19 17:46 Freq: Status: Active Protocol: Document 08/24/19 10:41 [facility] (Rec: 08/24/19 12:16 [facility] [id number]) Current Condition History of Current Condition Onset Date 07/03/19 Current Complaints R ankle sx History of Current Condition Pt reports he had excessive wear and tear with his running and mountain climbing wehre it got to the point he couldn' t walk on uneven ground. He had surgery 07/03/19 where they did reconstruction of lat ligaments of RLE (R calcaneus osteotomy, lat per longus to brevis, lat lig reconstruction (talofib/calcaneofib lig) w/ post tib tendon lengthening). Pain is about 2-3 unless he he hits it hard on accident. His exercises hurt but he does them daily. Pt reports pain level is manageable and is only using tylenol. Pt wearing boot at all times except during icing and exercises. 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 Pt reprots he is typically very active but has not been doing much d/t WB restricitons . He has a 2 level house but is staying on one level. He was able to go up/down them. Pt reports just starting to put weight on it on Wednesday. Pt reports follows up with MD in 5 weeks. Treatment Goals Patient/Caregiver Goals Pt wants to return hunting and hiking, not have his ankle limit him PT-OP-C Subjective Start: 08/23/19 17:46 Freq: Status: Active Protocol: Document 03/26/20 09:02 [facility] (Rec: 03/26/20 10:22 [facility] [id number]) OP-PT Subjective Patient Comments Patient Comments Pt reports he has been walking 2-3 miles most days. He has been doing his bands and stretching religiously. Still has trouble on stairs and pain if he does a lot in the day. PT-OP-F Manual Assessment Start: 08/23/19 17:46 Freq: Status: Active Protocol: Document 08/24/19 10:41 [facility] (Rec: 08/24/19 12:16 [facility] [id number]) Manual Assessments Soft Tissue Assessment Soft Tissue Mobility Assessment incisions not fully healed, still scabbed over PT-OP-G Mobility & Gait Start: 08/23/19 17:46 Freq: Status: Active Protocol: Document 08/24/19 10:41 [facility] (Rec: 08/24/19 12:16 [facility] [id number]) OP Gait Assessment Comments Gait Comments Pt amb with crutches w/step through gait with min WB into RLE and appropriate crutch use . He is currently amb with boot. PT-OP-K Range of Motion Start: 08/23/19 17:46 Freq: Status: Active Protocol: Document 03/26/20 09:02 [facility] (Rec: 03/26/20 10:22 [facility] [id number]) Ankle and Foot Goniometric Range of Motion Ankle and Foot Right Active Dorsiflexion with Knee Extended 0 Plantarflexion 38 Inversion 10 PT-OP-M Strength Start: 08/23/19 17:46 Freq: Status: Active Protocol: Document 03/26/20 09:02 [facility] (Rec: 03/26/20 10:22 [facility] [id number]) Hip Strength Hip Manual Muscle Testing Left Flexion (L2) 5 Normal Extension (S1) 5 Normal Abduction 5 Normal Adduction 5 Normal External Rotation 5 Normal Internal Rotation 5 Normal Right Flexion (L2) 5 Normal Extension (S1) 4- Good- Abduction 4+ Good+ Adduction 5 Normal External Rotation 5 Normal Internal Rotation 5 Normal Knee Strength Knee Manual Muscle Testing Right Flexion (S2) 5 Normal Extension (L3) 5 Normal Left Flexion (S2) 5 Normal Extension (L3) 5 Normal Ankle/Foot Strength Ankle and Foot Manual Muscle Testing Right Dorsiflexion (L4) 4+ Good+ Plantarflexion (S1) 3 Fair Inversion 4 Good Eversion (S1) 5 Normal Comments able to do about 4 heel raises Left Dorsiflexion (L4) 5 Normal Plantarflexion (S1) 5 Normal Inversion 4+ Good+ Eversion (S1) 5 Normal Comments PF tested seated PT-OP-Q Treatments Start: 08/23/19 17:46 Freq: Status: Active Protocol: Document 03/26/20 09:02 [facility] (Rec: 03/26/20 10:22 [facility] [id number]) Therapeutic Exercises Standing Exercises lunges Side bilateral Equipment Used by rail Reps/Minutes 10 Comments focus on feet facing fwd squats Side bilateral Reps/Minutes 15 Comments over chair focus on even wt & heel down on R calf stretch Standing Exercise Name on step Reps/Minutes 30 sec heel raises Standing Exercise Name on ground Side bilateral Reps/Minutes 15 Comments tennis ball between ankles Neuro Re-Education Treatment Balance Activities tandem Details stance B SLS Details B trials PT-OP-T Assessment and Plan Start: 08/23/19 17:46 Freq: Status: Active Protocol: Document 03/26/20 09:02 [facility] (Rec: 03/26/20 10:22 [facility] [id number]) Physical Therapy Assessment Goals balance Impairment SLS fora bout 2 sec on R Assisted Goal (LTG) Pt will be able to do 10 sec in SLS without pain or LOB. LTG Duration 05/26/20 FAAM Impairment 24/84 Short Term Goal (STG) Pt will score 44/84 to show improved functional ability. STG Duration 04/25/20 Tipple Repairer Goal (LTG) Pt will score 80/84 to show improved functional ability. LTG Duration 05/26/20 activities Short Term Goal (STG) Pt will report going for short walks on flat even surfaces 3x/week. STG Duration achieved Tipple Repairer Goal (LTG) Pt will report able to return to hiking without increased pain. 03/26-able to do small hiikes iwth inc pain LTG Duration 05/26/20 gait Short Term Goal (STG) Pt will manav able to amb with boot without crutches with full WB without inc pain greater than 3/10. STG Duration achieved Tipple Repairer Goal (LTG) Pt will b eable to amb without boot without deviations or pain. 03/26-able to amb without boot but has deviations LTG Duration 02/08/20 strength Short Term Goal (STG) Pt will be indep with HEP. STG Duration achieved progressing as needed Assisted Goal (LTG) Pt will have 5/5 BLE strength in order to allow 03/26-significantly improved LTG Duration 05/26/20 ROM Short Term Goal (STG) Pt will improve DF to neutral. STG Duration achieved Assisted Goal (LTG) Pt will have full ROM of R ankle to allow pt do amb up/ down stairs and do functional activities without inc pain. 03/26-improved but still lacking range LTG Duration 05/26/20 Assessment Summary Assessment Pt is improving with gait, balance, strength, ROM and functional ability, but still has deficits in all areas. His descent of stairs requires him to hang off half his foot ot achieve PF d/t lack of DF mobility. He is only able to do SLS for 2 sec on RLE whichis signifcantly limited especailly compared to L. He still has dec push off during gait with dec stance time on RLE. He would benefit from cont PT to work on these deficits. Physical Therapy Plan Frequency and Duration Frequency of Treatment 1-2x/week Duration of Treatment 2 months Plan of Care Start Date 03/26/20 Plan of Care End Date 05/26/20 Therapeutic Interventions Therapeutic Interventions Aquatic Therapy,Balance Training,Gait Training,Home Exercise Program,Joint Mobilizations,Manual Therapy, Neuromuscular Re-education, Patient/Caregiver Education, Self-Care/Home Management,Soft Tissue Mobilization,Taping, Therapeutic Activities, Therapeutic Exercises Modalities Cold Pack/Ice Massage,Electric Stimulation,Hot Packs, Infrared Therapy,Iontophoresis ,Ultrasound Next Visit Focus/Plan Next Note Type Treatment Note Next Visit Plan gait training for push off, manual for ankle mobility to PF & DF
--- NOTE | 2020-03-26 14:34 | PT.OPPOC ---
Physical, Occupational & Speech Therapy At [facility] Current Diagnoses Other acquired deformities of right foot (03/26/20) Stiffness of right ankle, not elsewhere classified (03/26/20) Stiffness of right foot, not elsewhere classified (03/26/20) Difficulty in walking, not elsewhere classified (03/26/20) Weakness (03/26/20) Other specified postprocedural states (03/26/20) Visit Care Team Role Provider Type Evita Kelly ND Primary Care Provider Non-Staff Specialty: Naturopathy Address: [address] [place] [address], [id number] Email: Stephan Baeza MD Attending Provider Non-Staff Referring Provider Specialty: Orthopedics Address: [address] [place] [address], [address], [place], [address] Fax: Email: Plan Of Care PT-OP-T Assessment and Plan Start: 08/23/19 17:46 Freq: Status: Active Protocol: Document 03/26/20 09:02 [facility] (Rec: 03/26/20 10:22 [facility] [id number]) Physical Therapy Assessment Goals balance Impairment SLS fora bout 2 sec on R Detention Goal (LTG) Pt will be able to do 10 sec in SLS without pain or LOB. LTG Duration 05/26/20 FAAM Impairment 24/84 Short Term Goal (STG) Pt will score 44/84 to show improved functional ability. STG Duration 04/25/20 Detention Goal (LTG) Pt will score 80/84 to show improved functional ability. LTG Duration 05/26/20 activities Short Term Goal (STG) Pt will report going for short walks on flat even surfaces 3x/week. STG Duration achieved Outside Installer Apprentice Goal (LTG) Pt will report able to return to hiking without increased pain. 03/26-able to do small hiikes iwth inc pain LTG Duration 05/26/20 gait Short Term Goal (STG) Pt will manav able to amb with boot without crutches with full WB without inc pain greater than 3/10. STG Duration achieved Detention Goal (LTG) Pt will b eable to amb without boot without deviations or pain. 03/26-able to amb without boot but has deviations LTG Duration 02/08/20 strength Short Term Goal (STG) Pt will be indep with HEP. STG Duration achieved progressing as needed Outside Installer Apprentice Goal (LTG) Pt will have 5/5 BLE strength in order to allow 03/26-significantly improved LTG Duration 05/26/20 ROM Short Term Goal (STG) Pt will improve DF to neutral. STG Duration achieved Outside Installer Apprentice Goal (LTG) Pt will have full ROM of R ankle to allow pt do amb up/ down stairs and do functional activities without inc pain. 03/26-improved but still lacking range LTG Duration 05/26/20 Assessment Summary Assessment Pt is improving with gait, balance, strength, ROM and functional ability, but still has deficits in all areas. His descent of stairs requires him to hang off half his foot ot achieve PF d/t lack of DF mobility. He is only able to do SLS for 2 sec on RLE whichis signifcantly limited especailly compared to L. He still has dec push off during gait with dec stance time on RLE. He would benefit from cont PT to work on these deficits. Physical Therapy Plan Frequency and Duration Frequency of Treatment 1-2x/week Duration of Treatment 2 months Plan of Care Start Date 03/26/20 Plan of Care End Date 05/26/20 Therapeutic Interventions Therapeutic Interventions Aquatic Therapy,Balance Training,Gait Training,Home Exercise Program,Joint Mobilizations,Manual Therapy, Neuromuscular Re-education, Patient/Caregiver Education, Self-Care/Home Management,Soft Tissue Mobilization,Taping, Therapeutic Activities, Therapeutic Exercises Modalities Cold Pack/Ice Massage,Electric Stimulation,Hot Packs, Infrared Therapy,Iontophoresis ,Ultrasound Next Visit Focus/Plan Next Note Type Treatment Note Next Visit Plan gait training for push off, manual for ankle mobility to PF & DF Plan of Care Dates Plan of Care Start Date 03/26/20 Plan of Care End Date 05/26/20 Electronically Signed by: Ginny Baptiste, PT 03/26/20 1174 Please Sign and Return: I have reviewed this Plan of Care and certify that the skilled therapy services above are required to meet the patient?s needs. Physician Signature Date Printed Name and Credentials Clinical Instructor Signature Printed Name and Credentials
--- NOTE | 2020-04-02 12:21 | PT.OTN ---
Current Diagnoses Other acquired deformities of right foot (04/02/20) Stiffness of right ankle, not elsewhere classified (04/02/20) Stiffness of right foot, not elsewhere classified (04/02/20) Difficulty in walking, not elsewhere classified (04/02/20) Weakness (04/02/20) Other specified postprocedural states (04/02/20) Physical Therapy Treatment Note PT-OP-A Visit Information Start: 08/23/19 17:46 Freq: Status: Active Protocol: Document 04/02/20 10:47 [facility] (Rec: 04/02/20 12:21 [facility] [id number]) Out-Patient Physical Therapy Visit Information Visit Information Visit Type Treatment Note Visit Start Time 10:35 Visit Stop Time 11:14 Total Visit Minutes 40 Visit Number Number of SPORTS CENTRE MANAGER Visits 0 PT-OP-B Current Condition Start: 08/23/19 17:46 Freq: Status: Active Protocol: Document 08/24/19 10:41 [facility] (Rec: 08/24/19 12:16 [facility] [id number]) Current Condition History of Current Condition Onset Date 07/03/19 Current Complaints R ankle sx History of Current Condition Pt reports he had excessive wear and tear with his running and mountain climbing wehre it got to the point he couldn' t walk on uneven ground. He had surgery 07/03/19 where they did reconstruction of lat ligaments of RLE (R calcaneus osteotomy, lat per longus to brevis, lat lig reconstruction (talofib/calcaneofib lig) w/ post tib tendon lengthening). Pain is about 2-3 unless he he hits it hard on accident. His exercises hurt but he does them daily. Pt reports pain level is manageable and is only using tylenol. Pt wearing boot at all times except during icing and exercises. 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 Pt reprots he is typically very active but has not been doing much d/t WB restricitons . He has a 2 level house but is staying on one level. He was able to go up/down them. Pt reports just starting to put weight on it on Wednesday. Pt reports follows up with MD in 5 weeks. Treatment Goals Patient/Caregiver Goals Pt wants to return hunting and hiking, not have his ankle limit him PT-OP-C Subjective Start: 08/23/19 17:46 Freq: Status: Active Protocol: Document 04/02/20 10:47 [facility] (Rec: 04/02/20 12:21 [facility] [id number]) OP-PT Subjective Patient Comments Patient Comments Pt reports compliance w/ exercises. sore 24 hours after last session Patient Reported Progress Improving PT-OP-F Manual Assessment Start: 08/23/19 17:46 Freq: Status: Active Protocol: Document 08/24/19 10:41 [facility] (Rec: 08/24/19 12:16 [facility] [id number]) Manual Assessments Soft Tissue Assessment Soft Tissue Mobility Assessment incisions not fully healed, still scabbed over PT-OP-G Mobility & Gait Start: 08/23/19 17:46 Freq: Status: Active Protocol: Document 08/24/19 10:41 [facility] (Rec: 08/24/19 12:16 [facility] [id number]) OP Gait Assessment Comments Gait Comments Pt amb with crutches w/step through gait with min WB into RLE and appropriate crutch use . He is currently amb with boot. PT-OP-K Range of Motion Start: 08/23/19 17:46 Freq: Status: Active Protocol: Document 03/26/20 09:02 [facility] (Rec: 03/26/20 10:22 [facility] [id number]) Ankle and Foot Goniometric Range of Motion Ankle and Foot Right Active Dorsiflexion with Knee Extended 0 Plantarflexion 38 Inversion 10 PT-OP-M Strength Start: 08/23/19 17:46 Freq: Status: Active Protocol: Document 03/26/20 09:02 [facility] (Rec: 03/26/20 10:22 [facility] [id number]) Hip Strength Hip Manual Muscle Testing Left Flexion (L2) 5 Normal Extension (S1) 5 Normal Abduction 5 Normal Adduction 5 Normal External Rotation 5 Normal Internal Rotation 5 Normal Right Flexion (L2) 5 Normal Extension (S1) 4- Good- Abduction 4+ Good+ Adduction 5 Normal External Rotation 5 Normal Internal Rotation 5 Normal Knee Strength Knee Manual Muscle Testing Right Flexion (S2) 5 Normal Extension (L3) 5 Normal Left Flexion (S2) 5 Normal Extension (L3) 5 Normal Ankle/Foot Strength Ankle and Foot Manual Muscle Testing Right Dorsiflexion (L4) 4+ Good+ Plantarflexion (S1) 3 Fair Inversion 4 Good Eversion (S1) 5 Normal Comments able to do about 4 heel raises Left Dorsiflexion (L4) 5 Normal Plantarflexion (S1) 5 Normal Inversion 4+ Good+ Eversion (S1) 5 Normal Comments PF tested seated PT-OP-Q Treatments Start: 08/23/19 17:46 Freq: Status: Active Protocol: Document 04/02/20 10:47 [facility] (Rec: 04/02/20 12:21 [facility] [id number]) Gym Equipment Shuttle Balance red clips Comments fwd & side: WBOS & NBOS & wt shifts & staggered stance while hitting balloon Therapeutic Exercises Standing Exercises lunges Side bilateral Equipment Used by rail Reps/Minutes 10 Comments focus on feet facing fwd squats Standing Exercise Name in front of mirror Side bilateral Reps/Minutes 15 Comments over chair focus on even wt & heel down on R heel raises Standing Exercise Name on ground Side bilateral Reps/Minutes 15 Comments tennis ball between ankles Other Exercises 1/2 kneel Other Exercise Name fwd lean w/ R ft fwd Reps/Minutes 10 Comments L5 band for AP talar glide Manual Therapy Treatment Soft Tissue Mobilization scar mobility Body Location R ankle scar Mobilization Type Cross-Friction,Myofascial Release Intensity/Depth Moderate Body Position Sitting Joint Mobilizations talar Joint distraction, AP, med glide Grade II calcaneus Direction distraction & med glide FM PT-OP-T Assessment and Plan Start: 08/23/19 17:46 Freq: Status: Active Protocol: Document 04/02/20 10:47 [facility] (Rec: 04/02/20 12:21 [facility] [id number]) Physical Therapy Assessment Goals balance Impairment SLS fora bout 2 sec on R Machine Tracer Goal (LTG) Pt will be able to do 10 sec in SLS without pain or LOB. LTG Duration 05/26/20 FAAM Impairment 24/84 Short Term Goal (STG) Pt will score 44/84 to show improved functional ability. STG Duration 04/25/20 Machine Tracer Goal (LTG) Pt will score 80/84 to show improved functional ability. LTG Duration 05/26/20 activities Short Term Goal (STG) Pt will report going for short walks on flat even surfaces 3x/week. STG Duration achieved Senior Care Goal (LTG) Pt will report able to return to hiking without increased pain. 03/26-able to do small hiikes iwth inc pain LTG Duration 05/26/20 gait Short Term Goal (STG) Pt will manav able to amb with boot without crutches with full WB without inc pain greater than 3/10. STG Duration achieved Senior Care Goal (LTG) Pt will b eable to amb without boot without deviations or pain. 03/26-able to amb without boot but has deviations LTG Duration 02/08/20 strength Short Term Goal (STG) Pt will be indep with HEP. STG Duration achieved progressing as needed Machine Tracer Goal (LTG) Pt will have 5/5 BLE strength in order to allow 03/26-significantly improved LTG Duration 05/26/20 ROM Short Term Goal (STG) Pt will improve DF to neutral. STG Duration achieved Machine Tracer Goal (LTG) Pt will have full ROM of R ankle to allow pt do amb up/ down stairs and do functional activities without inc pain. 03/26-improved but still lacking range LTG Duration 05/26/20 Assessment Summary Assessment Pt required min cueing for lunges but requiqred signficiatn cueing for squats and self talar glide. Improved balance today on uneven surfaces but NBOS positions with balloon on balance board were still challenging Physical Therapy Plan Frequency and Duration Frequency of Treatment 1-2x/week Duration of Treatment 2 months Plan of Care Start Date 03/26/20 Plan of Care End Date 05/26/20 Next Visit Focus/Plan Next Note Type Treatment Note Next Visit Plan gait training for push off, manual for ankle mobility to PF & DF
--- NOTE | 2020-04-08 13:38 | PT.OTN ---
Current Diagnoses Other acquired deformities of right foot (04/08/20) Stiffness of right ankle, not elsewhere classified (04/08/20) Stiffness of right foot, not elsewhere classified (04/08/20) Difficulty in walking, not elsewhere classified (04/08/20) Weakness (04/08/20) Other specified postprocedural states (04/08/20) Physical Therapy Treatment Note PT-OP-A Visit Information Start: 08/23/19 17:46 Freq: Status: Active Protocol: Document 04/08/20 13:27 [facility] (Rec: 04/08/20 13:38 [facility] [id number]) Out-Patient Physical Therapy Visit Information Visit Information Visit Type Treatment Note Visit Start Time 09:47 Visit Stop Time 10:30 Total Visit Minutes 43 Visit Number Number of MANAGER BANQUET Visits 0 PT-OP-B Current Condition Start: 08/23/19 17:46 Freq: Status: Active Protocol: Document 08/24/19 10:41 [facility] (Rec: 08/24/19 12:16 [facility] [id number]) Current Condition History of Current Condition Onset Date 07/03/19 Current Complaints R ankle sx History of Current Condition Pt reports he had excessive wear and tear with his running and mountain climbing wehre it got to the point he couldn' t walk on uneven ground. He had surgery 07/03/19 where they did reconstruction of lat ligaments of RLE (R calcaneus osteotomy, lat per longus to brevis, lat lig reconstruction (talofib/calcaneofib lig) w/ post tib tendon lengthening). Pain is about 2-3 unless he he hits it hard on accident. His exercises hurt but he does them daily. Pt reports pain level is manageable and is only using tylenol. Pt wearing boot at all times except during icing and exercises. 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 Pt reprots he is typically very active but has not been doing much d/t WB restricitons . He has a 2 level house but is staying on one level. He was able to go up/down them. Pt reports just starting to put weight on it on Wednesday. Pt reports follows up with MD in 5 weeks. Treatment Goals Patient/Caregiver Goals Pt wants to return hunting and hiking, not have his ankle limit him PT-OP-C Subjective Start: 08/23/19 17:46 Freq: Status: Active Protocol: Document 04/08/20 13:27 [facility] (Rec: 04/08/20 13:38 [facility] [id number]) OP-PT Subjective Patient Comments Patient Comments Pt reprots he did try icing and stretching after a long walk last weeka nd does feel liek that helped PT-OP-F Manual Assessment Start: 08/23/19 17:46 Freq: Status: Active Protocol: Document 08/24/19 10:41 [facility] (Rec: 08/24/19 12:16 [facility] [id number]) Manual Assessments Soft Tissue Assessment Soft Tissue Mobility Assessment incisions not fully healed, still scabbed over PT-OP-G Mobility & Gait Start: 08/23/19 17:46 Freq: Status: Active Protocol: Document 08/24/19 10:41 [facility] (Rec: 08/24/19 12:16 [facility] [id number]) OP Gait Assessment Comments Gait Comments Pt amb with crutches w/step through gait with min WB into RLE and appropriate crutch use . He is currently amb with boot. PT-OP-K Range of Motion Start: 08/23/19 17:46 Freq: Status: Active Protocol: Document 03/26/20 09:02 [facility] (Rec: 03/26/20 10:22 [facility] [id number]) Ankle and Foot Goniometric Range of Motion Ankle and Foot Right Active Dorsiflexion with Knee Extended 0 Plantarflexion 38 Inversion 10 PT-OP-M Strength Start: 08/23/19 17:46 Freq: Status: Active Protocol: Document 03/26/20 09:02 [facility] (Rec: 03/26/20 10:22 [facility] [id number]) Hip Strength Hip Manual Muscle Testing Left Flexion (L2) 5 Normal Extension (S1) 5 Normal Abduction 5 Normal Adduction 5 Normal External Rotation 5 Normal Internal Rotation 5 Normal Right Flexion (L2) 5 Normal Extension (S1) 4- Good- Abduction 4+ Good+ Adduction 5 Normal External Rotation 5 Normal Internal Rotation 5 Normal Knee Strength Knee Manual Muscle Testing Right Flexion (S2) 5 Normal Extension (L3) 5 Normal Left Flexion (S2) 5 Normal Extension (L3) 5 Normal Ankle/Foot Strength Ankle and Foot Manual Muscle Testing Right Dorsiflexion (L4) 4+ Good+ Plantarflexion (S1) 3 Fair Inversion 4 Good Eversion (S1) 5 Normal Comments able to do about 4 heel raises Left Dorsiflexion (L4) 5 Normal Plantarflexion (S1) 5 Normal Inversion 4+ Good+ Eversion (S1) 5 Normal Comments PF tested seated PT-OP-Q Treatments Start: 08/23/19 17:46 Freq: Status: Active Protocol: Document 04/08/20 13:27 [facility] (Rec: 04/08/20 13:38 [facility] [id number]) Gym Equipment Shuttle Balance red clips Comments fwd & side: WBOS & NBOS & wt shifts & staggered stance w/head turns and EC trials Therapeutic Exercises Standing Exercises lunges Standing Exercise Name no wt with focus on full range Side bilateral Reps/Minutes 10 Comments focus on feet facing fwd squats Standing Exercise Name in front of mirror Side bilateral Equipment Used 10 lb in each hand Reps/Minutes 15 Comments over chair focus on even wt & heel down on R heel raises Standing Exercise Name on step Side bilateral Reps/Minutes 8 Gait Training Gait Activity gait Comments 1. work on push off 2. resisted gait in hallway with towel-aide SBA for balance wt shifts Description in mirror with focus on no lat shear & improved push off Comments 1. wt shift fwd 2. wt shift with step through Manual Therapy Treatment Soft Tissue Mobilization scar mobility Body Location R ankle scar Mobilization Type Cross-Friction,Myofascial Release Intensity/Depth Moderate Body Position Sitting Joint Mobilizations cuboid Direction PA FM Grade II talar Direction PA & med gldie FM in plantar flex position PT-OP-T Assessment and Plan Start: 08/23/19 17:46 Freq: Status: Active Protocol: Document 04/08/20 13:27 [facility] (Rec: 04/08/20 13:38 [facility] [id number]) Physical Therapy Assessment Goals balance Impairment SLS fora bout 2 sec on R Nursing Home Goal (LTG) Pt will be able to do 10 sec in SLS without pain or LOB. LTG Duration 05/26/20 FAAM Impairment 24 Short Term Goal (STG) Pt will score 44/84 to show improved functional ability. STG Duration 04/25/20 Armoured Car Escort Goal (LTG) Pt will score 80/84 to show improved functional ability. LTG Duration 05/26/20 activities Short Term Goal (STG) Pt will report going for short walks on flat even surfaces 3x/week. STG Duration achieved Nursing Home Goal (LTG) Pt will report able to return to hiking without increased pain. 03/26-able to do small hiikes iwth inc pain LTG Duration 05/26/20 gait Short Term Goal (STG) Pt will manav able to amb with boot without crutches with full WB without inc pain greater than 3/10. STG Duration achieved Nursing Home Goal (LTG) Pt will b eable to amb without boot without deviations or pain. 03/26-able to amb without boot but has deviations LTG Duration 02/08/20 strength Short Term Goal (STG) Pt will be indep with HEP. STG Duration achieved progressing as needed Nursing Home Goal (LTG) Pt will have 5/5 BLE strength in order to allow 03/26-significantly improved LTG Duration 05/26/20 ROM Short Term Goal (STG) Pt will improve DF to neutral. STG Duration achieved Armoured Car Escort Goal (LTG) Pt will have full ROM of R ankle to allow pt do amb up/ down stairs and do functional activities without inc pain. 03/26-improved but still lacking range LTG Duration 05/26/20 Assessment Summary Assessment Pt improved with form with all exercises but still did require cueing with form. Pt aware of issues and is working on his mechanics. He is improving with balance but still has difficultyw tih wt shift and push off with gait. Physical Therapy Plan Frequency and Duration Frequency of Treatment 1-2x/week Duration of Treatment 2 months Plan of Care Start Date 03/26/20 Plan of Care End Date 05/26/20 Next Visit Focus/Plan Next Note Type Treatment Note Next Visit Plan gait training for push off, manual for ankle mobility to PF & DF
--- NOTE | 2020-04-25 11:45 | PT.OTN ---
Current Diagnoses Other acquired deformities of right foot (04/25/20) Stiffness of right ankle, not elsewhere classified (04/25/20) Stiffness of right foot, not elsewhere classified (04/25/20) Difficulty in walking, not elsewhere classified (04/25/20) Weakness (04/25/20) Other specified postprocedural states (04/25/20) Physical Therapy Treatment Note PT-OP-A Visit Information Start: 08/23/19 17:46 Freq: Status: Active Protocol: Document 04/25/20 11:36 [facility] (Rec: 04/25/20 11:44 [facility] [id number]) Out-Patient Physical Therapy Visit Information Visit Information Visit Type Treatment Note Visit Start Time 09:47 Visit Stop Time 10:30 Total Visit Minutes 43 Visit Number Number of [employer] BEAMER Visits 0 PT-OP-B Current Condition Start: 08/23/19 17:46 Freq: Status: Active Protocol: Document 08/24/19 10:41 [facility] (Rec: 08/24/19 12:16 [facility] [id number]) Current Condition History of Current Condition Onset Date 07/03/19 Current Complaints R ankle sx History of Current Condition Pt reports he had excessive wear and tear with his running and mountain climbing wehre it got to the point he couldn' t walk on uneven ground. He had surgery 07/03/19 where they did reconstruction of lat ligaments of RLE (R calcaneus osteotomy, lat per longus to brevis, lat lig reconstruction (talofib/calcaneofib lig) w/ post tib tendon lengthening). Pain is about 2-3 unless he he hits it hard on accident. His exercises hurt but he does them daily. Pt reports pain level is manageable and is only using tylenol. Pt wearing boot at all times except during icing and exercises. 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 Pt reprots he is typically very active but has not been doing much d/t WB restricitons . He has a 2 level house but is staying on one level. He was able to go up/down them. Pt reports just starting to put weight on it on Wednesday. Pt reports follows up with MD in 5 weeks. Treatment Goals Patient/Caregiver Goals Pt wants to return hunting and hiking, not have his ankle limit him PT-OP-C Subjective Start: 08/23/19 17:46 Freq: Status: Active Protocol: Document 04/25/20 11:36 [facility] (Rec: 04/25/20 11:44 [facility] [id number]) OP-PT Subjective Patient Comments Patient Comments Pt reports he did well on his hunting trip. Wore his brace for all the hiking. It did make him feel weak when he returned and was not wearing the brace all the time but feels like he is imprvoign. Still stiff when first getting up. Patient Reported Progress Improving PT-OP-F Manual Assessment Start: 08/23/19 17:46 Freq: Status: Active Protocol: Document 08/24/19 10:41 [facility] (Rec: 08/24/19 12:16 [facility] [id number]) Manual Assessments Soft Tissue Assessment Soft Tissue Mobility Assessment incisions not fully healed, still scabbed over PT-OP-G Mobility & Gait Start: 08/23/19 17:46 Freq: Status: Active Protocol: Document 08/24/19 10:41 [facility] (Rec: 08/24/19 12:16 [facility] [id number]) OP Gait Assessment Comments Gait Comments Pt amb with crutches w/step through gait with min WB into RLE and appropriate crutch use . He is currently amb with boot. PT-OP-K Range of Motion Start: 08/23/19 17:46 Freq: Status: Active Protocol: Document 03/26/20 09:02 [facility] (Rec: 03/26/20 10:22 [facility] [id number]) Ankle and Foot Goniometric Range of Motion Ankle and Foot Right Active Dorsiflexion with Knee Extended 0 Plantarflexion 38 Inversion 10 PT-OP-M Strength Start: 08/23/19 17:46 Freq: Status: Active Protocol: Document 03/26/20 09:02 [facility] (Rec: 03/26/20 10:22 [facility] [id number]) Hip Strength Hip Manual Muscle Testing Left Flexion (L2) 5 Normal Extension (S1) 5 Normal Abduction 5 Normal Adduction 5 Normal External Rotation 5 Normal Internal Rotation 5 Normal Right Flexion (L2) 5 Normal Extension (S1) 4- Good- Abduction 4+ Good+ Adduction 5 Normal External Rotation 5 Normal Internal Rotation 5 Normal Knee Strength Knee Manual Muscle Testing Right Flexion (S2) 5 Normal Extension (L3) 5 Normal Left Flexion (S2) 5 Normal Extension (L3) 5 Normal Ankle/Foot Strength Ankle and Foot Manual Muscle Testing Right Dorsiflexion (L4) 4+ Good+ Plantarflexion (S1) 3 Fair Inversion 4 Good Eversion (S1) 5 Normal Comments able to do about 4 heel raises Left Dorsiflexion (L4) 5 Normal Plantarflexion (S1) 5 Normal Inversion 4+ Good+ Eversion (S1) 5 Normal Comments PF tested seated PT-OP-Q Treatments Start: 08/23/19 17:46 Freq: Status: Active Protocol: Document 04/25/20 11:36 [facility] (Rec: 04/25/20 11:44 [facility] [id number]) Therapeutic Exercises Standing Exercises hip hike Standing Exercise Name on step w/rail Side bilateral Reps/Minutes 15 Gait Training Gait Activity wt shifts Description in mirror with focus on no lat shear & improved push off Comments 1. wt shift fwd 2. wt shift with step through Manual Therapy Treatment Soft Tissue Mobilization scar mobility Body Location R ankle scars Mobilization Type Cross-Friction,Myofascial Release Intensity/Depth Moderate Body Position Sitting R ankle Body Location circumfrential Mobilization Type Myofascial Release Intensity/Depth Superficial Body Position Supine Joint Mobilizations MTP Joint AP and PA on MT 1-5 Grade II Body Position Supine Neuro Re-Education Treatment Balance Activities SLS Details B trials Self-Care/Home Management Treatment Education Other Education edu re: cont self soft tissue. Discused using brace on local hikes if going further distances or on uneven surfaces; AROM before getting up PT-OP-T Assessment and Plan Start: 08/23/19 17:46 Freq: Status: Active Protocol: Document 04/25/20 11:36 [facility] (Rec: 04/25/20 11:44 [facility] [id number]) Physical Therapy Assessment Goals balance Impairment SLS fora bout 2 sec on R Residential Goal (LTG) Pt will be able to do 10 sec in SLS without pain or LOB. LTG Duration 05/26/20 FAAM Impairment 24/84 Short Term Goal (STG) Pt will score 44/84 to show improved functional ability. STG Duration 04/25/20 Residential Goal (LTG) Pt will score 80/84 to show improved functional ability. LTG Duration 05/26/20 activities Short Term Goal (STG) Pt will report going for short walks on flat even surfaces 3x/week. STG Duration achieved Curriculum Manager Goal (LTG) Pt will report able to return to hiking without increased pain. 03/26-able to do small hiikes iwth inc pain LTG Duration 05/26/20 gait Short Term Goal (STG) Pt will manav able to amb with boot without crutches with full WB without inc pain greater than 3/10. STG Duration achieved Residential Goal (LTG) Pt will b eable to amb without boot without deviations or pain. 03/26-able to amb without boot but has deviations LTG Duration 02/08/20 strength Short Term Goal (STG) Pt will be indep with HEP. STG Duration achieved progressing as needed Residential Goal (LTG) Pt will have 5/5 BLE strength in order to allow 03/26-significantly improved LTG Duration 05/26/20 ROM Short Term Goal (STG) Pt will improve DF to neutral. STG Duration achieved Curriculum Manager Goal (LTG) Pt will have full ROM of R ankle to allow pt do amb up/ down stairs and do functional activities without inc pain. 03/26-improved but still lacking range LTG Duration 05/26/20 Assessment Summary Assessment Pt had irmpoved mechanics with gait today and was able to do weight shifts fwd into LEs. He had improved foot mobiltiy after manual treatment and had relief with MT glides. Physical Therapy Plan Frequency and Duration Frequency of Treatment 1-2x/week Duration of Treatment 2 months Plan of Care Start Date 03/26/20 Plan of Care End Date 05/26/20 Next Visit Focus/Plan Next Note Type Treatment Note Next Visit Plan gait training for push off, manual for ankle mobility to PF & DF
--- NOTE | 2020-05-02 10:44 | PT.OTN ---
Current Diagnoses Other acquired deformities of right foot (05/02/20) Stiffness of right ankle, not elsewhere classified (05/02/20) Stiffness of right foot, not elsewhere classified (05/02/20) Difficulty in walking, not elsewhere classified (05/02/20) Weakness (05/02/20) Other specified postprocedural states (05/02/20) Physical Therapy Treatment Note PT-OP-A Visit Information Start: 08/23/19 17:46 Freq: Status: Active Protocol: Document 05/02/20 10:37 [facility] (Rec: 05/02/20 10:44 [facility] [id number]) Out-Patient Physical Therapy Visit Information Visit Information Visit Type Treatment Note Visit Start Time 09:47 Visit Stop Time 10:31 Total Visit Minutes 44 Visit Number Number of WATER PLANT OPERATOR Visits 0 PT-OP-B Current Condition Start: 08/23/19 17:46 Freq: Status: Active Protocol: Document 08/24/19 10:41 [facility] (Rec: 08/24/19 12:16 [facility] [id number]) Current Condition History of Current Condition Onset Date 07/03/19 Current Complaints R ankle sx History of Current Condition Pt reports he had excessive wear and tear with his running and mountain climbing wehre it got to the point he couldn' t walk on uneven ground. He had surgery 07/03/19 where they did reconstruction of lat ligaments of RLE (R calcaneus osteotomy, lat per longus to brevis, lat lig reconstruction (talofib/calcaneofib lig) w/ post tib tendon lengthening). Pain is about 2-3 unless he he hits it hard on accident. His exercises hurt but he does them daily. Pt reports pain level is manageable and is only using tylenol. Pt wearing boot at all times except during icing and exercises. 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 Pt reprots he is typically very active but has not been doing much d/t WB restricitons . He has a 2 level house but is staying on one level. He was able to go up/down them. Pt reports just starting to put weight on it on Wednesday. Pt reports follows up with MD in 5 weeks. Treatment Goals Patient/Caregiver Goals Pt wants to return hunting and hiking, not have his ankle limit him PT-OP-C Subjective Start: 08/23/19 17:46 Freq: Status: Active Protocol: Document 05/02/20 10:37 [facility] (Rec: 05/02/20 10:44 [facility] [id number]) OP-PT Subjective Patient Comments Patient Comments Pt reports he feels like he is still improving. Notes his brace was adjusted by prostetist. He notes some difficulty with stairs. Patient Reported Progress Improving PT-OP-F Manual Assessment Start: 08/23/19 17:46 Freq: Status: Active Protocol: Document 08/24/19 10:41 [facility] (Rec: 08/24/19 12:16 [facility] [id number]) Manual Assessments Soft Tissue Assessment Soft Tissue Mobility Assessment incisions not fully healed, still scabbed over PT-OP-G Mobility & Gait Start: 08/23/19 17:46 Freq: Status: Active Protocol: Document 08/24/19 10:41 [facility] (Rec: 08/24/19 12:16 [facility] [id number]) OP Gait Assessment Comments Gait Comments Pt amb with crutches w/step through gait with min WB into RLE and appropriate crutch use . He is currently amb with boot. PT-OP-K Range of Motion Start: 08/23/19 17:46 Freq: Status: Active Protocol: Document 03/26/20 09:02 [facility] (Rec: 03/26/20 10:22 [facility] [id number]) Ankle and Foot Goniometric Range of Motion Ankle and Foot Right Active Dorsiflexion with Knee Extended 0 Plantarflexion 38 Inversion 10 PT-OP-M Strength Start: 08/23/19 17:46 Freq: Status: Active Protocol: Document 03/26/20 09:02 [facility] (Rec: 03/26/20 10:22 [facility] [id number]) Hip Strength Hip Manual Muscle Testing Left Flexion (L2) 5 Normal Extension (S1) 5 Normal Abduction 5 Normal Adduction 5 Normal External Rotation 5 Normal Internal Rotation 5 Normal Right Flexion (L2) 5 Normal Extension (S1) 4- Good- Abduction 4+ Good+ Adduction 5 Normal External Rotation 5 Normal Internal Rotation 5 Normal Knee Strength Knee Manual Muscle Testing Right Flexion (S2) 5 Normal Extension (L3) 5 Normal Left Flexion (S2) 5 Normal Extension (L3) 5 Normal Ankle/Foot Strength Ankle and Foot Manual Muscle Testing Right Dorsiflexion (L4) 4+ Good+ Plantarflexion (S1) 3 Fair Inversion 4 Good Eversion (S1) 5 Normal Comments able to do about 4 heel raises Left Dorsiflexion (L4) 5 Normal Plantarflexion (S1) 5 Normal Inversion 4+ Good+ Eversion (S1) 5 Normal Comments PF tested seated PT-OP-Q Treatments Start: 08/23/19 17:46 Freq: Status: Active Protocol: Document 05/02/20 10:37 [facility] (Rec: 05/02/20 10:44 [facility] [id number]) Gait Training Gait Activity stairs Description work on wt shift onto step & step down Comments 1. up/down 26 six in steps x2 2. wt shifts up single step Rx6 3. step downs x10 R LE Manual Therapy Treatment Soft Tissue Mobilization post chain Body Location calf & achilles and into plantar fascia Mobilization Type Rolling,Strumming Intensity/Depth Moderate Body Position Supine scar mobility Body Location R ankle scars Mobilization Type Cross-Friction,Myofascial Release Intensity/Depth Moderate Body Position Sitting Joint Mobilizations talar Direction AP glide & distraction Self-Care/Home Management Treatment Education Other Education edu re: work on going up/down stairs w/hand over rail just in case and as feel stronger start packing a pack and walking up/down stairs, edu for gradual inc walks w/up/ down hills PT-OP-T Assessment and Plan Start: 08/23/19 17:46 Freq: Status: Active Protocol: Document 05/02/20 10:37 [facility] (Rec: 05/02/20 10:44 [facility] [id number]) Physical Therapy Assessment Goals balance Impairment SLS fora bout 2 sec on R Senior Service Technician Goal (LTG) Pt will be able to do 10 sec in SLS without pain or LOB. LTG Duration 05/26/20 FAAM Impairment 24/84 Short Term Goal (STG) Pt will score 44/84 to show improved functional ability. STG Duration 04/25/20 Care Home Goal (LTG) Pt will score 80/84 to show improved functional ability. LTG Duration 05/26/20 activities Short Term Goal (STG) Pt will report going for short walks on flat even surfaces 3x/week. STG Duration achieved Senior Service Technician Goal (LTG) Pt will report able to return to hiking without increased pain. 03/26-able to do small hiikes iwth inc pain LTG Duration achieved gait Short Term Goal (STG) Pt will manav able to amb with boot without crutches with full WB without inc pain greater than 3/10. STG Duration achieved Care Home Goal (LTG) Pt will b eable to amb without boot without deviations or pain. 03/26-able to amb without boot but has deviations LTG Duration achieved strength Short Term Goal (STG) Pt will be indep with HEP. STG Duration achieved progressing as needed Senior Service Technician Goal (LTG) Pt will have 5/5 BLE strength in order to allow 03/26-significantly improved LTG Duration 05/26/20 ROM Short Term Goal (STG) Pt will improve DF to neutral. STG Duration achieved Senior Service Technician Goal (LTG) Pt will have full ROM of R ankle to allow pt do amb up/ down stairs and do functional activities without inc pain. 03/26-improved but still lacking range LTG Duration 05/26/20 Assessment Summary Assessment pt improved stiar mechanics after education and did better with keeping full foot on step for descent w/o c/o pain. Pt educated on importance of gradual continuence of exercise and woudl benefit from one further PT session to review all functional activities and exercsies to cont to work on. Physical Therapy Plan Frequency and Duration Frequency of Treatment 1-2x/week Duration of Treatment 2 months Plan of Care Start Date 03/26/20 Plan of Care End Date 05/26/20 Next Visit Focus/Plan Next Note Type Discharge Summary Next Visit Plan assess strength, review HEP & take ROM measurements, review stairs
--- NOTE | 2020-05-09 11:34 | PT.OTN ---
Current Diagnoses Other acquired deformities of right foot (05/09/20) Stiffness of right ankle, not elsewhere classified (05/09/20) Stiffness of right foot, not elsewhere classified (05/09/20) Difficulty in walking, not elsewhere classified (05/09/20) Weakness (05/09/20) Other specified postprocedural states (05/09/20) Physical Therapy Treatment Note PT-OP-A Visit Information Start: 08/23/19 17:46 Freq: Status: Active Protocol: Document 05/09/20 10:00 [facility] (Rec: 05/09/20 11:34 [facility] [id number]) Out-Patient Physical Therapy Visit Information Visit Information Visit Type Discharge Summary Visit Start Time 09:52 Visit Stop Time 10:30 Total Visit Minutes 38 Visit Number 18 Number of ROUGHER HELPER Visits 0 PT-OP-B Current Condition Start: 08/23/19 17:46 Freq: Status: Active Protocol: Document 08/24/19 10:41 [facility] (Rec: 08/24/19 12:16 [facility] [id number]) Current Condition History of Current Condition Onset Date 07/03/19 Current Complaints R ankle sx History of Current Condition Pt reports he had excessive wear and tear with his running and mountain climbing wehre it got to the point he couldn' t walk on uneven ground. He had surgery 07/03/19 where they did reconstruction of lat ligaments of RLE (R calcaneus osteotomy, lat per longus to brevis, lat lig reconstruction (talofib/calcaneofib lig) w/ post tib tendon lengthening). Pain is about 2-3 unless he he hits it hard on accident. His exercises hurt but he does them daily. Pt reports pain level is manageable and is only using tylenol. Pt wearing boot at all times except during icing and exercises. 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 Pt reprots he is typically very active but has not been doing much d/t WB restricitons . He has a 2 level house but is staying on one level. He was able to go up/down them. Pt reports just starting to put weight on it on Wednesday. Pt reports follows up with MD in 5 weeks. Treatment Goals Patient/Caregiver Goals Pt wants to return hunting and hiking, not have his ankle limit him PT-OP-C Subjective Start: 08/23/19 17:46 Freq: Status: Active Protocol: Document 05/09/20 10:00 [facility] (Rec: 05/09/20 11:34 [facility] [id number]) OP-PT Subjective Patient Comments Patient Comments Pt reprots strength is coming back but does still notice dec flexibility with squat Patient Reported Progress Improving PT-OP-F Manual Assessment Start: 08/23/19 17:46 Freq: Status: Active Protocol: Document 08/24/19 10:41 [facility] (Rec: 08/24/19 12:16 [facility] [id number]) Manual Assessments Soft Tissue Assessment Soft Tissue Mobility Assessment incisions not fully healed, still scabbed over PT-OP-G Mobility & Gait Start: 08/23/19 17:46 Freq: Status: Active Protocol: Document 08/24/19 10:41 [facility] (Rec: 08/24/19 12:16 [facility] [id number]) OP Gait Assessment Comments Gait Comments Pt amb with crutches w/step through gait with min WB into RLE and appropriate crutch use . He is currently amb with boot. PT-OP-K Range of Motion Start: 08/23/19 17:46 Freq: Status: Active Protocol: Document 05/09/20 10:00 [facility] (Rec: 05/09/20 11:34 [facility] [id number]) Ankle and Foot Goniometric Range of Motion Ankle and Foot Right Active Dorsiflexion with Knee Flexed 5 Dorsiflexion with Knee Extended 1 Plantarflexion 45 Inversion 12 Eversion 22 PT-OP-M Strength Start: 08/23/19 17:46 Freq: Status: Active Protocol: Document 05/09/20 10:00 [facility] (Rec: 05/09/20 11:34 [facility] [id number]) Hip Strength Hip Manual Muscle Testing Left Flexion (L2) 5 Normal Extension (S1) 5 Normal Abduction 5 Normal Adduction 5 Normal External Rotation 5 Normal Internal Rotation 5 Normal Right Flexion (L2) 5 Normal Extension (S1) 5 Normal Abduction 5 Normal Adduction 5 Normal External Rotation 5 Normal Internal Rotation 5 Normal Comments pain in R knee Knee Strength Knee Manual Muscle Testing Right Flexion (S2) 5 Normal Extension (L3) 5 Normal Left Flexion (S2) 5 Normal Extension (L3) 5 Normal Ankle/Foot Strength Ankle and Foot Manual Muscle Testing Right Dorsiflexion (L4) 4+ Good+ Plantarflexion (S1) 4+ Good+ Inversion 4 Good Eversion (S1) 5 Normal Comments able to do about 19 heel raises Left Dorsiflexion (L4) 5 Normal Plantarflexion (S1) 5 Normal Inversion 4+ Good+ Eversion (S1) 5 Normal Comments PF tested seated PT-OP-Q Treatments Start: 08/23/19 17:46 Freq: Status: Active Protocol: Document 05/09/20 10:00 [facility] (Rec: 05/09/20 11:34 [facility] [id number]) Therapeutic Exercises Sitting Exercises ROM Sitting Exercise Name 1. DF seated w/foot under knee 2. DF in long sit off wall Side right Reps/Minutes 15 ea Standing Exercises squats Standing Exercise Name focus on R heel down Reps/Minutes 15 Manual Therapy Treatment Joint Mobilizations cuneiforms Direction gapping FM Grade II talar Direction AP FM Self-Care/Home Management Treatment Education Other Education discussed stretching daily, strengthening every other day. Improtance of cont ROM & strengthening and exercise like squats being good to cont lifelong PT-OP-T Assessment and Plan Start: 08/23/19 17:46 Freq: Status: Active Protocol: Document 05/09/20 10:00 [facility] (Rec: 05/09/20 11:34 [facility] [id number]) Physical Therapy Assessment Goals balance Impairment SLS fora bout 2 sec on R Usp Goal (LTG) Pt will be able to do 10 sec in SLS without pain or LOB. LTG Duration improved to R sec R FAAM Impairment 2484 Short Term Goal (STG) Pt will score 44/84 to show improved functional ability. STG Duration achieved Usp Goal (LTG) Pt will score 80/84 to show improved functional ability. LTG Duration improved to 72/84 activities Short Term Goal (STG) Pt will report going for short walks on flat even surfaces 3x/week. STG Duration achieved Usp Goal (LTG) Pt will report able to return to hiking without increased pain. 03/26-able to do small hiikes iwth inc pain LTG Duration achieved gait Short Term Goal (STG) Pt will manav able to amb with boot without crutches with full WB without inc pain greater than 3/10. STG Duration achieved Usp Goal (LTG) Pt will b eable to amb without boot without deviations or pain. 03/26-able to amb without boot but has deviations LTG Duration achieved strength Short Term Goal (STG) Pt will be indep with HEP. STG Duration achieved progressing as needed Usp Goal (LTG) Pt will have 5/5 BLE strength in order to allow 03/26-significantly improved LTG Duration achieved in all but PF & inversion ROM Short Term Goal (STG) Pt will improve DF to neutral. STG Duration achieved Hourly Shift Manager Goal (LTG) Pt will have full ROM of R ankle to allow pt do amb up/ down stairs and do functional activities without inc pain. 03/26-improved but still lacking range LTG Duration still lacking range but improved with stairs Assessment Summary Assessment Pt is doing very well with all functional mobility and is having slight difficulty with some activities but overall has returned to all of his activities and is progressing tolerance to inc incline & distance hiking. ROM is improving but calves still are tight and pt does have limited motion, some that is likely not to change d/t extent of surgery. Pt encouraged to cont HEP Physical Therapy Plan Discharge Physical Therapy Discharge Reasons Goals Met
== END 2020-05-10 11:46 ==
LOC: PHYS 09:45
PROVIDERS: PCP Naturopath; Referring Provider Orthopaedic Surgery Foot and Ankle Surgery; Visit Provider Orthopaedic Surgery Foot and Ankle Surgery
DX: M21.6X1 Other acquired deformities of right foot (principal); Z98.890 Other specified postprocedural states; R26.2 Difficulty in walking, not elsewhere classified; R53.1 Weakness; M25.671 Stiffness of right ankle, not elsewhere classified; M25.674 Stiffness of right foot, not elsewhere classified
CPT/HCPCS: 97110; 97112; 97116; 97140; 97162; 97535

== ENCOUNTER → 2020-07-12 10:47 | Outpatient (CLI) | payer OTHER, SELFPAY ==
[2020-07-12] MEDS: COVID-19 VACC(MODERNA-1)/PF 100 MCG/0.5 ML VIAL IM (10:55)
== END ==
PROVIDERS: PCP Family Medicine; Visit Provider Internal Medicine
DX: Z23 Encounter for immunization (principal)
CPT/HCPCS: 0011A; 91301

== ENCOUNTER → 2020-08-09 09:47 | Outpatient (CLI) | payer OTHER, SELFPAY ==
[2020-08-09] MEDS: COVID-19 VACC #2, MRNA(MOD) 100 MCG/0.5 ML VIAL IM (09:55)
== END ==
PROVIDERS: PCP Family Medicine; Visit Provider Internal Medicine
DX: Z23 Encounter for immunization (principal)
CPT/HCPCS: 0012A; 91301

== ENCOUNTER → 2021-03-25 07:02 | Outpatient (CLI) | payer OTHER, SELFPAY ==
[2021-03-25 08:21] LABS: Alanine Aminotransferase 28 IU/L (<50); Albumin 4.5 g/dL (3.5-5.0); Albumin Globulin Ratio 1.5 (1.0-2.8); Alkaline Phosphatase 80 U/L (38-126); Aspartate Aminotransferase 27 IU/L (17-59); BUN Creatinine Ratio 20.3 (6-22); Bilirubin Total 0.5 mg/dL (0.2-1.3); Blood Urea Nitrogen 15 mg/dL (9-20); Calcium 9.2 mg/dL (8.4-10.2); Carbon Dioxide 31 mmol/L (22-32); Chloride 104 mmol/L (98-107); Cholesterol 265 mg/dL (140-199); Estimated Glomerular Filt Rate > 60.0 mL/min (>60); Glucose 107 mg/dL (80-110); HDL Cholesterol 51 mg/dL (40-60); HEMOLYSIS < 15 (0-50); LDL Cholesterol Calculated 164 mg/dL (<100); Potassium 4.7 mmol/L (3.4-5.1); Sodium 140 mmol/L (137-145); Total Protein 7.5 g/dL (6.3-8.2); Triglycerides 251 mg/dL (35-150)
[2021-03-25 08:53] LABS: TSH w/ Reflex to FT4 1.96 uIU/mL (0.47-4.68)
== END ==
PROVIDERS: PCP Internal Medicine; Referring Provider Internal Medicine; Visit Provider Internal Medicine
DX: E78.00 Pure hypercholesterolemia, unspecified (principal); I10 Essential (primary) hypertension; N40.1 Benign prostatic hyperplasia with lower urinary tract symptoms
CPT/HCPCS: 36415; 80053; 80061; 84443

== ENCOUNTER → 2021-04-04 11:28 | Outpatient (CLI) | payer OTHER, SELFPAY ==
[2021-04-04 13:26] LABS: Prostate Specific Antigen Scrn 2.59 ng/mL (0.1-4.0)
== END ==
PROVIDERS: PCP Internal Medicine; Referring Provider Internal Medicine; Visit Provider Internal Medicine
DX: Z12.5 Encounter for screening for malignant neoplasm of prostate (principal)
CPT/HCPCS: 36415; G0103

== ENCOUNTER → 2021-08-26 07:34 | Outpatient (CLI) | payer OTHER, SELFPAY ==
[2021-08-26 10:45] LABS: Cholesterol 275 mg/dL (140-199); HDL Cholesterol 44 mg/dL (40-60); LDL Cholesterol Calculated 182 mg/dL (<100); Triglycerides 244 mg/dL (35-150)
== END ==
PROVIDERS: PCP Internal Medicine; Referring Provider Internal Medicine; Visit Provider Internal Medicine
DX: E78.00 Pure hypercholesterolemia, unspecified (principal); I10 Essential (primary) hypertension
CPT/HCPCS: 36415; 80061

== ENCOUNTER → 2022-08-11 06:51 | Outpatient (CLI) | payer OTHER, SELFPAY ==
--- NOTE | 2022-08-11 06:52 | DI.US.S_ITS ---
PROCEDURE: US ABDOMEN COMPLETE INDICATIONS: RUQ PAIN TECHNIQUE: Real-time scanning was performed of the abdominal and retroperitoneal organs, with image documentation. COMPARISON: None. FINDINGS: Liver: Liver is normal in size and homogeneous in echotexture. Gallbladder: There is no gallstone. No gallbladder wall thickening or pericholecystic fluid. No sonographic Leonard's sign. Biliary ducts: Intrahepatic bile ducts are non-dilated. Extrahepatic bile duct caliber measures 4.3 mm. Normal is 6-7 mm or less in diameter, or 10 mm or less post-cholecystectomy. Pancreas: Pancreas is not well visualized due to overlying bowel gas. Spleen: Spleen is normal in size and homogeneous in echotexture. Kidneys: Kidneys are normal in size and echotexture. Right kidney measures 12.0 cm long; left kidney measures 13.2 cm long. No hydronephrosis or nephrolithiasis. No solid masses. Aorta: Not well seen due to overlying bowel gas. Iliacs: Not well seen. IVC: Not well seen. Miscellaneous: No free abdominal fluid. IMPRESSION: 1. Normal appearing liver, gallbladder, spleen and bilateral kidneys. No biliary ductal dilatation. 2. Poorly visualized pancreas and abdominal vessels due to overlying bowel gas. Dictated by: Gregorio Floyd M.D. on 08/11/2022 at 12:08 Approved by: Gregorio Floyd M.D. on 08/11/2022 at 12:10
== END ==
PROVIDERS: PCP Internal Medicine; Referring Provider Physician Assistant Medical; Visit Provider Physician Assistant Medical
DX: R10.11 Right upper quadrant pain (principal)
CPT/HCPCS: 76700

== ENCOUNTER → 2022-08-21 06:51 | Outpatient (CLI) | payer OTHER, SELFPAY ==
--- NOTE | 2022-08-21 06:54 | DI.RAD.S_ITS ---
PROCEDURE: XR ACUTE ABDOMEN SERIES INDICATIONS: epigastric pain TECHNIQUE: One view chest and two views of the abdomen were acquired. COMPARISON: None. FINDINGS: Surgical changes and devices: None. Chest: Lungs are clear. Heart size is normal. No pleural effusions. No pneumoperitoneum. Abdomen: Moderate fecal stasis throughout the colon is seen. No gross pneumoperitoneum. No suspicious calcifications. Visualized solid organ contours appear normal. Bones: No suspicious bony lesions. IMPRESSION: 1. Moderate constipation. No gross free air. 2. No abnormal abdominal calcifications. 3. No acute cardiopulmonary pathology. Dictated by: Gregorio Floyd M.D. on 08/21/2022 at 9:01 Approved by: Gregorio Floyd M.D. on 08/21/2022 at 9:10
[2022-08-21 08:16] LABS: Add Manual Diff / Slide Review NO; Basophils Absolute Auto 0 /uL (0-100); Basophils Percent Auto 0.8 % (0-2); Eosinophils Absolute Auto 100 /uL (0-450); Hematocrit 43.6 % (41-53); Hemoglobin 14.4 g/dL (13.5-17.5); Lymphocytes Absolute Auto 1700 /uL (1100-4500); Lymphocytes Percent Auto 31.6 % (25-40); Mean Corpuscular HGB Conc 33.1 % (30-36); Mean Corpuscular Hemoglobin 28.6 PG (26-34); Mean Corpuscular Volume 86.5 fL (80-100); Monocytes Absolute Auto 400 /uL (0-900); Monocytes Percent Auto 8.1 % (3-14); Neutrophils Absolute Auto 3200 /uL (1500-7000); Neutrophils Percent Auto 57.5 % (50-75); Platelet Count 251 X10^3/uL (150-400); Red Blood Cell Count 5.04 X10^6/uL (4.5-5.9); Red Cell Distribution Width 13.9 % (11.6-14.8); White Blood Cell Count 5.5 X10^3/uL (4.5-11.0)
[2022-08-21 08:18] LABS: Alanine Aminotransferase 30 IU/L (<50); Albumin 4.4 g/dL (3.5-5.0); Albumin Globulin Ratio 1.4 (1.0-2.8); Alkaline Phosphatase 79 U/L (38-126); Aspartate Aminotransferase 25 IU/L (17-59); BUN Creatinine Ratio 17.6 (6-22); Bilirubin Total 0.6 mg/dL (0.2-1.3); Blood Urea Nitrogen 15 mg/dL (9-20); C-Reactive Protein Quant 0.8 mg/dL (<1.0); Calcium 8.9 mg/dL (8.4-10.2); Carbon Dioxide 29 mmol/L (22-32); Chloride 101 mmol/L (98-107); Cholesterol 174 mg/dL (140-199); Estimated Glomerular Filt Rate > 60 mL/min (>60); Globulin 3.1 g/dL (1.7-4.1); Glucose 102 mg/dL (80-110); HDL Cholesterol 43 mg/dL (40-60); HEMOLYSIS < 15 (0-50); LDL Cholesterol Calculated 101 mg/dL (<100); Lipase 18 U/L (23-300); Sodium 138 mmol/L (137-145); Total Protein 7.5 g/dL (6.3-8.2); Triglycerides 150 mg/dL (35-150)
[2022-08-21 08:46] LABS: Prostate Specific Antigen Scrn 2.79 ng/mL (0.1-4.0)
== END ==
PROVIDERS: PCP Internal Medicine; Referring Provider Internal Medicine; Visit Provider Internal Medicine
DX: R10.13 Epigastric pain (principal); E78.00 Pure hypercholesterolemia, unspecified; I10 Essential (primary) hypertension; R10.9 Unspecified abdominal pain; Z12.5 Encounter for screening for malignant neoplasm of prostate; K59.00 Constipation, unspecified
CPT/HCPCS: 36415; 74022; 80053; 80061; 83690; 85025; 86140; G0103

== ENCOUNTER 2023-08-10 12:33 | Observation (INO) | payer MEDICARE, SELFPAY ==
[2023-08-10] VITALS (22 sets, daily range): BP systolic 172–238; BP diastolic 89–111; PULSE 57–76; RESP 9–20; TEMP 36.3; O2SAT 96–99; BMI 24.3; BMI 25.2
--- NOTE | 2023-08-10 | DI.ECHO.S_ITS ---
[facility] +---------+ : : [address] [place] : : : : [id number] : : : : Phone: [phone]+ Echocardiogram Report + + :Name: FAB RO Study Date: 08/11/2023 Height: 70 in : :[facility] ReadingLocation: Weight: 170 lb : : Gender: Male BSA: 1.9 m2 : :: 1950 Age: 73 yrs BP: 149/86 mmHg: :Reason For Study: TIA : :Ordering Physician: [place], : :JAYMIE Performed By: Vani Aaron : :Referring: JAYMIE GARIBAY : + + Interpretation Summary 1) Mildly increased left ventricular thickness (concentric) with normal size, normal wall motion, and normal systolic function (EF 60-65%). 2) Normal right ventricular size and function. 3) No significant valvular abnormalities. 4) No prior Echo available for comparison. Procedure: A two-dimensional transthoracic echocardiogram with color flow and Doppler was performed. The study quality was technically adequate. There is no prior echocardiogram noted for this patient. The patient was in sinus rhythm with heart rates between 54-61 bpm during the exam. Left Ventricle: The left ventricle is normal in size. There is mild concentric left ventricular hypertrophy. The ejection fraction is estimated to be 60-65%. Left ventricular systolic function appears normal without focal wall motion abnormalities. Diastolic parameters suggest a relaxation abnormality of the left ventricle, consistent with probable normal filling pressures. Right Ventricle: The right ventricle is normal in size and function. Atria: The left atrium is moderately dilated. Right atrial size is normal. There is no Doppler evidence for an interatrial shunt. Mitral Valve: The mitral valve is normal in structure and function. There is trace mitral regurgitation. Aortic Valve: The aortic valve is trileaflet. The aortic valve opens well. There is no aortic valve stenosis. No aortic regurgitation is present. Tricuspid Valve: The tricuspid valve is normal in structure and function. There is a trace or physiologic amount of tricuspid regurgitation. Pulmonic Valve: The pulmonic valve leaflets are thin and pliable; valve motion is normal. There is mild pulmonic regurgitation. Great Vessels: The aortic root is normal size. The dimensions of the ascending aorta are normal. The IVC is of normal diameter and collapses greater than 50% with a sniff. This suggests a low right atrial pressure of 3 mm Hg. Pericardium/ Pleura There is no pericardial effusion. There is no pleural effusion. MMode/2D Measurements & Calculations LVIDd: 4.3 cm LVOT diam: 2.0 cm LVIDs: 3.0 cm Ao root diam: 3.3 cm FS: 30.2 % asc Aorta Diam: 3.2 cm IVSd: 1.3 cm Ao Arch Diam (Prox Trans): 3.0 cm LVPWd: 1.2 cm LV ball. diameter/BSA (cm/m^2): 2.2 LV sys. diameter/BSA (cm/m^2): 1.5 LA A2 area: 25.2 cm2 RA long axis: 5.6 cm LA A4 area: 16.3 cm2 RA area: 17.3 cm2 LA length (vol): 5.1 cm RA vol: 45.7 ml LA vol: 68.7 ml RA : 23.5 ml/m2 LA vol index: 35.3 ml/m2 IVC diam: 1.6 cm RVD1 (basal): 4.0 cm TAPSE: 2.0 cm Doppler Measurements & Calculations Ao V2 max: 132.8 cm/sec LVOT Max Olegario: 77.0 cm/sec Ao V2 mean: 94.6 cm/sec LV V1 max P.4 mmHg Ao max P.1 mmHg LV V1 VTI: 16.8 cm Ao mean P.9 mmHg TATO(I,D): 2.0 cm2 Ao V2 VTI: 25.9 cm TATO(V,D): 1.8 cm2 sev ratio: 0.65 TATO indexed to BSA (cm^2/m^2): 1.0 MV E max olegario: 47.6 cm/sec PA V2 max: 114.6 cm/sec MV A max olegario: 59.5 cm/sec PA V2 mean: 83.4 cm/sec MV E/A: 0.80 PA mean P.1 mmHg Med Peak E' Olegario: 4.9 cm/sec PA pr(Accel): 25.9 mmHg E/E' med: 9.7 Lat Peak E' Olegario: 7.6 cm/sec E/E' lat: 6.2 E/e' average: 8.0 MV dec time: 0.26 sec SV(LVOT): 52.8 ml Reading Physician:12:24 PM
--- NOTE | 2023-08-10 13:20 | DI.RAD.S_ITS ---
PROCEDURE: XR CHEST 1V INDICATIONS: chest pain TECHNIQUE: One view of the chest was acquired. COMPARISON: None. FINDINGS: Surgical changes and devices: None. Lungs and pleura: Lungs are clear. No pleural effusions or pneumothorax. Mediastinum: Mediastinal contours appear normal. Heart size is normal. Bones and chest wall: No suspicious bony lesions. Overlying soft tissues appear unremarkable. IMPRESSION: No acute cardiopulmonary disease process. Dictated by: Jyothi Harden MD, PhD on 08/10/2023 at 14:14 Approved by: Jyothi Harden MD, PhD on 08/10/2023 at 14:15
--- NOTE | 2023-08-10 15:45 | DI.CT.S_ITS ---
PROCEDURE: CT HEAD/BRAIN WO CON INDICATIONS: diff word finding / htn TECHNIQUE: Noncontrast 4.5 mm thick angled axial sections acquired from the foramen magnum to the vertex, with coronal and sagittal reformats. For radiation dose reduction, the following was used: automated exposure control, adjustment of mA and/or kV according to patient size. COMPARISON: None. FINDINGS: Image quality: Diagnostic. CSF spaces: Basal cisterns are patent. No extra-axial fluid collections. The ventricles are symmetric in size and shape. Brain: No intracranial bleeds or masses. There is cerebral volume loss for age, with resultant ventricular and sulcal prominence. There are periventricular and deep white matter chronic small vessel ischemic changes. There is intracranial internal carotid artery atherosclerosis. Skull and face: Calvarium and visualized facial bones appear intact, without suspicious lesions. Sinuses: Visualized sinuses and mastoids are clear. IMPRESSION: No acute intracranial disease process. Dictated by: Jyothi Harden MD, PhD on 08/10/2023 at 16:14 Approved by: Jyothi Harden MD, PhD on 08/10/2023 at 16:15
--- NOTE | 2023-08-10 15:47 | PC.NURSE ---
Patient reports early this morning when on a CPR call, felt off, reports difficulty finding words and sorting thoughts. Didn't feel as sharp. Patient states this lasted approx five min. Continued to have chest palpitations, pressure in ears. Denies chest pain or Shortness of breath
[2023-08-10 16:00] LABS: Add Manual Diff / Slide Review NO; Basophils Absolute Auto 0 /uL (0-100); Basophils Percent Auto 0.8 % (0-2); Eosinophils Absolute Auto 100 /uL (0-450); Eosinophils Percent Auto 1.9 % (2-4); Hematocrit 43.8 % (41-53); Hemoglobin 14.9 g/dL (13.5-17.5); Lymphocytes Absolute Auto 1300 /uL (1100-4500); Lymphocytes Percent Auto 24.4 % (25-40); Mean Corpuscular HGB Conc 34.1 % (30-36); Mean Corpuscular Hemoglobin 29.5 PG (26-34); Mean Corpuscular Volume 86.7 fL (80-100); Monocytes Absolute Auto 400 /uL (0-900); Monocytes Percent Auto 7.2 % (3-14); Neutrophils Absolute Auto 3500 /uL (1500-7000); Neutrophils Percent Auto 65.7 % (50-75); Platelet Count 267 X10^3/uL (150-400); Red Blood Cell Count 5.05 X10^6/uL (4.5-5.9); Red Cell Distribution Width 13.6 % (11.6-14.8); White Blood Cell Count 5.4 X10^3/uL (4.5-11.0)
[2023-08-10 16:13] LABS: Prothrombin Time 11.8 SECONDS (9.4-12.5)
[2023-08-10 16:15] LABS: PTT Partial Thromboplastin Tim 37 SECONDS (25.1-36.5)
[2023-08-10 16:18] LABS: Alanine Aminotransferase 27 IU/L (<50); Albumin 4.6 g/dL (3.5-5.0); Albumin Globulin Ratio 1.3 (1.0-2.8); Alkaline Phosphatase 73 U/L (38-126); Aspartate Aminotransferase 26 IU/L (17-59); BUN Creatinine Ratio 24.7 (6-22); Bilirubin Total 0.6 mg/dL (0.2-1.3); Blood Urea Nitrogen 18 mg/dL (9-20); Calcium 9.1 mg/dL (8.4-10.2); Carbon Dioxide 29 mmol/L (22-32); Chloride 101 mmol/L (98-107); Creatine Kinase 85 U/L (55-170); Estimated Glomerular Filt Rate > 60 mL/min (>60); Globulin 3.5 g/dL (1.7-4.1); Glucose 105 mg/dL (80-110); HEMOLYSIS < 15 (0-50); Lipase 20 U/L (23-300); Magnesium 2.2 mg/dL (1.6-2.3); Potassium 3.6 mmol/L (3.4-5.1); Sodium 139 mmol/L (137-145); Total Protein 8.1 g/dL (6.3-8.2)
[2023-08-10 16:28] LABS: Troponin I < 0.012 ng/mL (0.01-0.034)
--- NOTE | 2023-08-10 17:05 | ED.GENADULT ---
HPI - General Adult General Chief complaint: Hypertension Stated complaint: hbp, dizziness, palpitations, dazed ref by [place] Time Seen by Provider: 08/10/23 17:03 Source: patient Mode of arrival: Wheelchair History of Present Illness HPI narrative: A 73-year-old man who arrives by private vehicle. The patient reporting that earlier today approximately 8 hours prior to being seen he woke up feeling like he was ?cloudy?. Had an episode where he had difficulty with word finding that lasted for only a few minutes and also felt slightly dizzy at that time. He did not have any reported facial droop he was able to speak when he could find his words and symptoms have resolved. He has had some episodes recently where he had some difficulty with word finding but said that it was nothing quite like today. He has not had any focal numbness or weakness previously. Has a history of elevated cholesterol on a statin, no diagnosed history of hypertension however is quite hypertensive on arrival. He does not smoke does not have diabetes there is a family history of coronary artery disease. He uses alcohol only occasionally. He has not had a headache nausea or vomiting he has not having chest pain or shortness of breath. Related Data Home Medications Medication Instructions Recorded Confirmed FOLIC ACID/VIT A/VIT B1/VIT 1 tab PO Q DAY ##0 11/06/10 08/20/22 (#MULTIVITAMIN) [VITAMIN C] ##0 11/06/10 08/20/22 Fish Oil (#FISH OIL) 1 iu PO QDAY ##0 01/29/12 08/20/22 Calcium 1 tab PO DAILY 04/27/22 08/20/22 cholecalciferol (vitamin D3) 1 cap PO DAILY 04/27/22 08/20/22 melatonin 5 mg tablet 5 - 10 mg PO BEDTIME PRN 04/27/22 08/20/22 Previous Rx's Medication Instructions Recorded rosuvastatin 10 mg tablet 10 mg PO DAILY #90 tabs 05/25/23 Allergies Allergy/AdvReac Type Severity Reaction Status Date / Time Yojrygx-ZCB-FxU Reductase AdvReac Intermediate muscle Verified 08/20/22 15:45 Inhibitor pains [Ymcxets-Ioy-Qzv Reductase Inhibitor] Patient History Medical History Benign non-nodular prostatic hyperplasia with lower urinary tract symptoms (01/24/16) BPH w urinary obs/LUTS Chronic fatigue (08/29/15) Dupuytren's contracture (~2017) Essential hypertension Excessive daytime sleepiness Fibromyalgia (12/15/04) Insomnia due to psychological stress Obstructive sleep apnea Palpitations Pure hypercholesterolemia (08/29/15) Rosacea (08/29/15) Skin cancer (~2011) Snoring Unspecified hemorrhoids (12/15/04) Viral upper respiratory tract infection Surgical History Anesthesia History of ankle surgery (~07/03/18) Family History Father Diabetes mellitus Heart disease Family/Other Loud snoring Mother Cancer Brother ALS (amyotrophic lateral sclerosis) Grandfather Cancer Social History marital status: household members: spouse lives independently: Yes caregiver/support person: No education level: college 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 HENMT Head: normocephalic and atraumatic Neck Other: No carotid bruit Resp Effort & Inspection: normal respiratory effort and able to speak in complete sentences Cardio Other: Regular rhythm rate no murmur rub or gallop Skin Other: Warm and dry Neuro General: patient alert and patient oriented x3 Cognition: normal cognition Speech: speech normal Motor: strength 5/5 throughout Sensory Exam: no sensory deficits noted Coordination: hzkpkk-sx-chxp test normal Pupils: Normal pupillary reactivity/response: right, left and bilateral Course Orders Ordered: ED Orders 08/10/23 13:20 XR chest 1V Stat EKG-12 Lead Stat 08/10/23 15:39 Complete Blood Count AUTO DIFF Stat Comprehensive Metabolic Panel Stat Lipase Stat Magnesium Stat PTT Partial Thromboplastin Cel[place] Stat Prothrombin Time INR Stat Troponin & CK Cardiac Panel Stat 08/10/23 15:45 CT head/brain wo con Stat 08/10/23 17:29 MR head/brain wo con Stat 08/10/23 18:31 CT angio head and neck Stat Discontinued Medications Aspirin (Aspirin 81 Mg Chew Tab) 324 mg PO NOW ONE Stop: 08/10/23 13:21 Last Admin: 08/10/23 18:52 Dose: Not Given Aspirin (Aspirin Ec 325 Mg Tablet) 325 mg PO NOW ONE Stop: 08/10/23 18:32 Metoprolol Tartrate (Metoprolol Ir 25 Mg Tablet) 25 mg PO NOW ONE Stop: 08/10/23 18:41 Consultations Consultation #1: D/W Dr Edwards, accepts admission Vital Signs Vital signs: Vital Signs - 8 hr 08/10/23 13:12 08/10/23 15:46 08/10/23 16:27 Pulse Rate 65 76 68 Respiratory Rate 20 16 10 L Blood Pressure 210/100 H 220/110 H Pulse Oximetry 97 98 99 Oxygen Delivery Method Room Air Room Air 08/10/23 16:30 08/10/23 16:30 08/10/23 16:45 Pulse Rate 65 67 Respiratory Rate 12 Blood Pressure 201/93 H Pulse Oximetry 99 98 Oxygen Delivery Method Room Air 08/10/23 17:00 08/10/23 17:01 08/10/23 17:01 Pulse Rate 63 67 Respiratory Rate 14 13 Blood Pressure 208/103 H Pulse Oximetry 98 98 Oxygen Delivery Method 08/10/23 17:15 08/10/23 17:30 08/10/23 17:30 Pulse Rate 64 62 Respiratory Rate 12 9 L Blood Pressure 203/111 H Pulse Oximetry 98 98 Oxygen Delivery Method Medical Decision Making Lab Data Lab results narrative: CBC with diff and CMP are unremarkable,. Normal INR 08/10/23 15:39 08/10/23 15:39 Labs: Lab Results 08/10/23 Range/Units 15:39 WBC 5.4 (4.5-11.0) X10^3/uL RBC 5.05 (4.5-5.9) X10^6/uL Hgb 14.9 (13.5-17.5) g/dL Hct 43.8 (41-53) % MCV 86.7 (80-100) fL MCH 29.5 (26-34) PG MCHC 34.1 (30-36) % RDW 13.6 (11.6-14.8) % Plt Count 267 (150-400) X10^3/uL Neut % (Auto) 65.7 (50-75) % Lymph % (Auto) 24.4 L (25-40) % [place] % (Auto) 7.2 (3-14) % Eos % (Auto) 1.9 L (2-4) % Baso % (Auto) 0.8 (0-2) % Neut # (Auto) 3500 (9517-5253) /uL Lymph # (Auto) 1300 (9374-8791) /uL [place] # (Auto) 400 (0-900) /uL Eos # (Auto) 100 (0-450) /uL Baso # (Auto) 0 (0-100) /uL PT 11.8 (9.4-12.5) SECONDS INR 1.0 (0.9-1.3) APTT 37 H (25.1-36.5) SECONDS Sodium 139 (137-145) mmol/L Potassium 3.6 (3.4-5.1) mmol/L Chloride 101 (98-107) mmol/L Carbon Dioxide 29 (22-32) mmol/L BUN 18 (9-20) mg/dL Creatinine 0.73 (0.66-1.25) mg/dL Estimated GFR > 60 (>60) mL/min BUN/Creatinine Ratio 24.7 H (6-22) Glucose 105 (80-110) mg/dL Calcium 9.1 (8.4-10.2) mg/dL Magnesium 2.2 (1.6-2.3) mg/dL Total Bilirubin 0.6 (0.2-1.3) mg/dL AST 26 (17-59) IU/L ALT 27 (<50) IU/L Alkaline Phosphatase 73 (38-126) U/L Total Creatine Kinase 85 (55-170) U/L Troponin I < 0.012 (0.01-0.034) ng/mL Total Protein 8.1 (6.3-8.2) g/dL Albumin 4.6 (3.5-5.0) g/dL Globulin 3.5 (1.7-4.1) g/dL Albumin/Globulin Ratio 1.3 (1.0-2.8) Lipase 20 L (23-300) U/L Imaging Data MRI brain: Radiologist's Impression: No acute findings per Radiology CT angio head and neck: My Impression: Study ordered, results pending at the time of transfer of admission ECG Data Interpretation: EKG shows normal sinus rhythm with sinus arrhythmia. No acute ST segment changes. Appears to have voltage criteria for LVH MDM Narrative Medical decision making narrative: 73-year-old man with a history of elevated cholesterol and quite hypertensive on arrival. He presents today with an episode of difficulty with word finding concerning for a TIA. Symptoms have resolved completely, presentation did not suggest hemorrhage MRI was negative for acute stroke. TIA remains a possibility. I have ordered aspirin, I have ordered a CT angio head and neck. His blood pressure is elevated but trending down, we will want to be careful with control of his blood pressure, I have ordered a low-dose of metoprolol. He will be admitted to his primary care service to complete a TIA workup and manage his blood pressure.. Discharge Plan Departure Prescriptions: No Action FOLIC ACID/VIT A/VIT B1/VIT (#MULTIVITAMIN) 1 tab PO Q DAY Qty: 0 [VITAMIN C] Qty: 0 Fish Oil (#FISH OIL) 1 iu PO QDAY Qty: 0 rosuvastatin 10 mg tablet 10 mg PO DAILY Qty: 90 0RF Rx Instructions: APPT/YEARLY CHECK IN DUE 07/2023. PLEASE CALL TO SET UP FUTURE APPT BEFORE END OF RX/FUTURE FILLS. THANK YOU~ melatonin 5 mg tablet 5 - 10 mg PO BEDTIME PRN cholecalciferol (vitamin D3) 1 cap PO DAILY Calcium 1 tab PO DAILY Referrals: Reece Kelly MD [Primary Care Provider] -
--- NOTE | 2023-08-10 17:29 | DI.MRI.S_ITS ---
PROCEDURE: MR HEAD/BRAIN WO CON INDICATIONS: TIA TECHNIQUE: Non-contrast axial T1 spin echo, axial T2 fast spin echo, sagittal and axial FLAIR, coronal T2 fast spin echo, axial gradient echo, axial diffusion and ADC through the brain. COMPARISON: [facility], CT, CT HEAD/BRAIN WO CON, 08/10/2023, 15:53. FINDINGS: Image quality: Excellent. CSF spaces: Ventricles appear symmetric in size and shape. Basal cisterns are patent. No extra-axial fluid collections. Brain: No intracranial bleeds or mass effects. There is cerebral volume loss for age. There are periventricular and deep white matter chronic small vessel ischemic changes. Brainstem appears normal. Diffusion-weighted images show no acute infarct. No chronic ischemic insults. Normal intravascular flow voids are present. Skull and face: Calvarial bone marrow is normal in signal. Orbits are normal. Sinuses: Sinuses and mastoids are clear. IMPRESSION: No findings of acute or subacute infarction can be seen. Dictated by: Tucker Portillo M.D. on 08/10/2023 at 17:21 Approved by: Tucker Portillo M.D. on 08/10/2023 at 17:21
--- NOTE | 2023-08-10 18:31 | DI.CT.S_ITS ---
PROCEDURE: CT ANGIO HEAD AND NECK INDICATIONS: tia TECHNIQUE: After the administration of intravenous contrast, 1 mm thick sections acquired from the aortic arch through the [place] of [place]. 3-dimensional eiogkru-wsjotcqut-rjbzolbtcc (MIP) and/or volume rendering reformats were acquired of the central intracranial vasculature and neck separately. For radiation dose reduction, the following was used: automated exposure control, adjustment of mA and/or kV according to patient size. COMPARISON: Merged With [facility], CT, CT HEAD/BRAIN WO CON, 08/10/2023, 15:53. Merged With [facility], MR, MR HEAD/BRAIN WO CON, 08/10/2023, 17:33. FINDINGS: Image quality: Diagnostic. BRAIN: CSF spaces: Ventricles are normal in size and shape. Basal cisterns are patent. No extra-axial fluid collections. Brain: No significant abnormality of the brain can be seen. Skull and face: Calvarium and facial bones appear intact, without suspicious lesions. Orbits appear normal. Sinuses: Sinuses and mastoids are clear. HEAD CT ANGIOGRAPHY: Anterior circulation: Intracranial internal carotid arteries are normal in size and flow. The flow within the paired anterior cerebral arteries is normal and symmetric. The flow within the middle cerebral arteries is normal and symmetric. The anterior communicating artery is seen. No aneurysms are seen. Posterior circulation: Visualized portions of the vertebral arteries demonstrate normal caliber, and join to form a normal appearing basilar artery. There is a prominent left posterior communicating artery seen, with an accompanying diminutive left P1 segment. This is attributed to a type origin of the right posterior cerebral artery, which is considered to be a normal developmental variant of typically no clinical consequence. The flow within the posterior cerebral arteries is normal and symmetric. No aneurysms are seen. NECK CT ANGIOGRAPHY: Carotid system: The great vessels demonstrate a conventional anatomy as they arise from the aortic arch. The origins of the common carotid arteries appear patent. The common carotid arteries demonstrate normal caliber and courses. The bifurcation regions are both widely patent. The internal carotid arteries demonstrate normal calibers and courses. Posterior circulation: The origins of the vertebral arteries both appear widely patent. The more superior extracranial portions of both vertebral arteries also demonstrate normal courses and calibers. Soft tissues: Visualized neck soft tissues demonstrate no suspicious abnormalities. Bones: No suspicious bony lesions. Visualized cervical spine appears normally aligned. Cervical spine degenerative changes are seen, which are worst inferiorly. IMPRESSION: No significant intracranial arterial abnormality is seen. No significant abnormality is seen within the arteries of the neck. Any quantitative measurements of stenosis were performed using NASCET criteria. Dictated by: Tucker Portillo M.D. on 08/10/2023 at 18:16 Approved by: Tucker Portillo M.D. on 08/10/2023 at 18:17
[2023-08-10] MEDS: ASPIRIN EC 325 MG TABLET PO (18:59)
[2023-08-10] MEDS: METOPROLOL IR 25 MG TABLET PO (18:59)
--- NOTE | 2023-08-10 19:01 | ED.GENADULT ---
HPI - General Adult General Chief complaint: Hypertension Stated complaint: hbp, dizziness, palpitations, dazed ref by [place] Time Seen by Provider: 08/10/23 17:03 Source: patient Mode of arrival: Wheelchair Related Data Home Medications Medication Instructions Recorded Confirmed melatonin 5 mg tablet 5 - 10 mg PO BEDTIME PRN Insomnia 04/27/22 08/10/23 Previous Rx's Medication Instructions Recorded amlodipine 10 mg tablet 10 mg PO DAILY #90 tabs 08/11/23 aspirin 81 mg tablet,delayed 81 mg PO DAILY #250 tabs 08/11/23 release rosuvastatin 20 mg tablet 20 mg PO DAILY #90 tabs 08/11/23 Allergies Allergy/AdvReac Type Severity Reaction Status Date / Time Xohsyta-VWP-IeH Reductase AdvReac Intermediate muscle Verified 08/10/23 19:04 Inhibitor pains [Lgmiaut-Wrk-Laf Reductase Inhibitor] Patient History Medical History BPH w urinary obs/LUTS Essential hypertension Dupuytren's contracture (~2017) Skin cancer (~2011) Insomnia due to psychological stress Fibromyalgia (12/15/04) Unspecified hemorrhoids (12/15/04) Obstructive sleep apnea Excessive daytime sleepiness Snoring Viral upper respiratory tract infection Palpitations Benign non-nodular prostatic hyperplasia with lower urinary tract symptoms (01/24/16) Rosacea (08/29/15) Pure hypercholesterolemia (08/29/15) Chronic fatigue (08/29/15) Surgical History Anesthesia History of ankle surgery (~07/03/18) Family History Father Diabetes mellitus Heart disease Family/Other Loud snoring Mother Cancer Brother ALS (amyotrophic lateral sclerosis) Grandfather Cancer Social History marital status: household members: spouse lives independently: Yes caregiver/support person: No education level: college 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/episcopalian: Voodoo Smoking Status: Never smoker alcohol intake: current substance use type: does not use Smoking Status: Never smoker alcohol intake frequency: 0-2 drinks per day Substance Use Type: does not use Exam Initial Vital Signs Initial Vital Signs: Vital Signs Pulse Rate 65 08/10/23 13:12 Respiratory Rate 20 08/10/23 13:12 Blood Pressure 210/100 H 08/10/23 13:12 Pulse Oximetry 97 08/10/23 13:12 Oxygen Delivery Method Room Air 08/10/23 13:12 Course Orders Ordered: Discontinued Medications Acetaminophen (Acetaminophen 325 Mg Tablet) 650 mg PO Q6H PRN PRN Reason: Fever/Mild Pain (1-3) Last Admin: 08/11/23 03:31 Dose: 650 mg Documented By: ALLYSSA Amlodipine Besylate (Amlodipine 5 Mg Tablet) 10 mg PO NOW ONE Stop: 08/10/23 19:29 Last Admin: 08/10/23 19:35 Dose: 10 mg Documented By: LETICIA Amlodipine Besylate (Amlodipine 5 Mg Tablet) 10 mg PO DAILY [facility] Last Admin: 08/11/23 09:31 Dose: 10 mg Documented By: SUSAN Aspirin (Aspirin 81 Mg Chew Tab) 324 mg PO NOW ONE Stop: 08/10/23 13:21 Last Admin: 08/10/23 18:52 Dose: Not Given Documented By: TUAN Aspirin (Aspirin Ec 325 Mg Tablet) 325 mg PO NOW ONE Stop: 08/10/23 18:32 Last Admin: 08/10/23 18:59 Dose: 325 mg Documented By: LESLY Aspirin (Aspirin Ec 325 Mg Tablet) 325 mg PO DAILY [facility] Last Admin: 08/11/23 09:31 Dose: 325 mg Documented By: SUSAN Atorvastatin Calcium (Atorvastatin 20 Mg Tablet) 20 mg PO BEDTIME [facility] Last Admin: 08/10/23 22:20 Dose: 20 mg Documented By: ALLYSSA Enoxaparin Sodium (Enoxaparin 40 Mg/0.4 Ml Syringe) 40 mg SUBCUT DAILY [facility] Last Admin: 08/11/23 09:31 Dose: Not Given Documented By: SUSAN Lactated Ringer's (Lactated Ringers) 1,000 mls @ 21 mls/hr IV CONT [facility] Last Admin: 08/10/23 21:33 Dose: Not Given Documented By: ALLYSSA Lisinopril (Lisinopril 20 Mg Tablet) 20 mg PO NOW ONE Stop: 08/10/23 22:12 Last Admin: 08/10/23 22:19 Dose: 20 mg Documented By: CT Melatonin (Melatonin 3 Mg Tablet) 6 mg PO BEDTIME PRN PRN Reason: Insomnia Last Admin: 08/10/23 22:20 Dose: 6 mg Documented By: CT Metoprolol Tartrate (Metoprolol Ir 25 Mg Tablet) 25 mg PO NOW ONE Stop: 08/10/23 18:41 Last Admin: 08/10/23 18:59 Dose: 25 mg Documented By: [facility] Naloxone HCl (Naloxone 0.4 Mg/Ml Vial) 0.2 mg IV Q2MIN PRN PRN Reason: Opiate Reversal Non-Formulary Medication (Melatonin) 5 mg PO BEDTIME PRN PRN Reason: Insomnia Non-Formulary Medication (Rosuvastatin) 10 mg PO [facility] Vital Signs Vital signs: Vital Signs - 8 hr 08/10/23 13:12 08/10/23 15:46 08/10/23 16:27 Pulse Rate 65 76 68 Respiratory Rate 20 16 10 L Blood Pressure 210/100 H 220/110 H Pulse Oximetry 97 98 99 Oxygen Delivery Method Room Air Room Air 08/10/23 16:30 08/10/23 16:30 08/10/23 16:45 Pulse Rate 65 67 Respiratory Rate 12 Blood Pressure 201/93 H Pulse Oximetry 99 98 Oxygen Delivery Method Room Air 08/10/23 17:00 08/10/23 17:01 08/10/23 17:01 Pulse Rate 63 67 Respiratory Rate 14 13 Blood Pressure 208/103 H Pulse Oximetry 98 98 Oxygen Delivery Method 08/10/23 17:15 08/10/23 17:30 08/10/23 17:30 Pulse Rate 64 62 Respiratory Rate 12 9 L Blood Pressure 203/111 H Pulse Oximetry 98 98 Oxygen Delivery Method Medical Decision Making Lab Data 08/10/23 15:39 08/10/23 15:39 Labs: Lab Results 08/10/23 Range/Units 15:39 WBC 5.4 (4.5-11.0) X10^3/uL RBC 5.05 (4.5-5.9) X10^6/uL Hgb 14.9 (13.5-17.5) g/dL Hct 43.8 (41-53) % MCV 86.7 (80-100) fL MCH 29.5 (26-34) PG MCHC 34.1 (30-36) % RDW 13.6 (11.6-14.8) % Plt Count 267 (150-400) X10^3/uL Neut % (Auto) 65.7 (50-75) % Lymph % (Auto) 24.4 L (25-40) % [place] % (Auto) 7.2 (3-14) % Eos % (Auto) 1.9 L (2-4) % Baso % (Auto) 0.8 (0-2) % Neut # (Auto) 3500 (3937-3181) /uL Lymph # (Auto) 1300 (3332-8332) /uL [place] # (Auto) 400 (0-900) /uL Eos # (Auto) 100 (0-450) /uL Baso # (Auto) 0 (0-100) /uL PT 11.8 (9.4-12.5) SECONDS INR 1.0 (0.9-1.3) APTT 37 H (25.1-36.5) SECONDS Sodium 139 (137-145) mmol/L Potassium 3.6 (3.4-5.1) mmol/L Chloride 101 (98-107) mmol/L Carbon Dioxide 29 (22-32) mmol/L BUN 18 (9-20) mg/dL Creatinine 0.73 (0.66-1.25) mg/dL Estimated GFR > 60 (>60) mL/min BUN/Creatinine Ratio 24.7 H (6-22) Glucose 105 (80-110) mg/dL Calcium 9.1 (8.4-10.2) mg/dL Magnesium 2.2 (1.6-2.3) mg/dL Total Bilirubin 0.6 (0.2-1.3) mg/dL AST 26 (17-59) IU/L ALT 27 (<50) IU/L Alkaline Phosphatase 73 (38-126) U/L Total Creatine Kinase 85 (55-170) U/L Troponin I < 0.012 (0.01-0.034) ng/mL Total Protein 8.1 (6.3-8.2) g/dL Albumin 4.6 (3.5-5.0) g/dL Globulin 3.5 (1.7-4.1) g/dL Albumin/Globulin Ratio 1.3 (1.0-2.8) Lipase 20 L (23-300) U/L Discharge Plan Departure Patient Disposition: Admitted as Observation Clinical Impression: Brain TIA Hypertension Qualifiers: Hypertension type: unspecified Qualified Code(s): I10 - Essential (primary) hypertension Admit Date/Time: 08/10/23 19:14 Admit Provider: Luis Edwards
[2023-08-10] MEDS: AMLODIPINE 5 MG TABLET 10 MG PO (19:35)
[2023-08-10] MEDS: lisinopriL 20 MG TABLET PO (22:19)
[2023-08-10] MEDS: ATORVASTATIN 20 MG TABLET PO (22:20)
[2023-08-10] MEDS: MELATONIN 3 MG TABLET 6 MG PO (22:20)
[2023-08-11] VITALS: BP 166/92; PULSE 74; RESP 17; TEMP 37.1; O2SAT 98
[2023-08-11 01:31] LABS: MRSA (Nasal) PCR Not Detected (Not Detect)
[2023-08-11] MEDS: ACETAMINOPHEN 325 MG TABLET 650 MG PO (03:31)
[2023-08-11 04:00] VITALS: BP 154/79; PULSE 56; RESP 16; TEMP 36.2; O2SAT 96
--- NOTE | 2023-08-11 07:44 | P.HP_ITS ---
History of Present Illness History of Present Illness Date Patient Seen: 08/11/23 Time Patient Seen: 07:44 Chief complaint: hbp, dizziness, palpitations, dazed ref by [facility] Narrative: 73-year-old male, being treated as an outpatient only for hyperlipidemia who presented to the emergency department several hours after having a neurologic episode characterized by a sense of cloudiness in the head, some dizziness, and a an episode of difficulty finding words the lasted for only a few minutes. He does admit to some word-finding difficulties over time but nothing like what happened on day of admission. Symptoms all resolved several hours prior to arrival to the emergency department however. He actually had gone to his dentist for care and found to be quite hypertensive which is what prompted him to seek medical care actually. Does carry a diagnosis of hypertension as well but has not been treated with numbers borderline previously. He was quite hypertensive upon arrival in the emergency department. Patient last seen in the outpatient clinic in July 2022 Patient has denied any other neurologic symptoms no headache, no numbness tingling hands feet arms legs, no loss of coordination no visual change no change in hearing etcetera In the ER he had an extensive workup including CT angiography of the head and neck and brain MRI that failed to reveal anything of any significance. Blood pressure was controlled. No rhythm disturbance has been noted at any point during his hospitalization. He was admitted for further evaluation [facility] Medical History BPH w urinary obs/LUTS Essential hypertension Dupuytren's contracture (~2017) Skin cancer (~2011) Insomnia due to psychological stress Fibromyalgia (12/15/04) Unspecified hemorrhoids (12/15/04) Obstructive sleep apnea Excessive daytime sleepiness Snoring Viral upper respiratory tract infection Palpitations Benign non-nodular prostatic hyperplasia with lower urinary tract symptoms (01/24/16) Rosacea (08/29/15) Pure hypercholesterolemia (08/29/15) Chronic fatigue (08/29/15) Surgical History Anesthesia History of ankle surgery (~07/03/18) Family History Father Diabetes mellitus Heart disease Family/Other Loud snoring Mother Cancer Brother ALS (amyotrophic lateral sclerosis) Grandfather Cancer Social History marital status: household members: spouse lives independently: Yes caregiver/support person: No education level: college 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[employer]) katy/jainism: Yazidism Smoking Status: Never smoker alcohol intake: current substance use type: does not use Meds Home Medications and Allergies Home Medications Medication Instructions Recorded Confirmed Type melatonin 5 mg tablet 5 - 10 mg PO BEDTIME PRN Insomnia 04/27/22 08/10/23 History amlodipine 10 mg tablet 10 mg PO DAILY #90 tabs 08/11/23 Rx aspirin 81 mg tablet,delayed 81 mg PO DAILY #250 tabs 08/11/23 Rx release rosuvastatin 20 mg tablet 20 mg PO DAILY #90 tabs 08/11/23 Rx Allergies Allergy/AdvReac Type Severity Reaction Status Date / Time Efqjemb-ACP-MeV Reductase AdvReac Intermediate muscle Verified 08/10/23 19:04 Inhibitor pains [Jyluedv-Qpf-Qmw Reductase Inhibitor] Review of Systems Review of Systems ROS: Yes All systems reviewed with the patient and are negative except as otherwise documented Exam Vital Signs (past 8 hours): - 08/11/23 00:00 08/11/23 04:00 Temperature 98.8 F 97.2 F L Pulse Rate 74 56 L Respiratory Rate 17 16 Blood Pressure 166/92 H 154/79 H Pulse Oximetry 98 96 Oxygen Flow Rate 0 0 Oxygen Delivery Method Room Air Oxygen Flow Rate 0 Narrative Exam Narrative: HEENT-unremarkable, normocephalic atraumatic Neck-no lymphadenopathy no bruits Lungs-clear anteriorly and posteriorly no wheezes no crackles good breath sounds Heart-regular rate and rhythm, no murmur, rub, or gallop. normal S1-S2 Abdomen-positive bowel tones, soft, nontender, nondistended, no hepatosplenomegaly, no masses palpable Neuro-normal to screening exam, gait not tested Extremities-no cyanosis clubbing or edema Objective ECG Impression: Unremarkable except for frequent PACs verses sinus arrhythmia Labs 08/10/23 15:39 08/10/23 15:39 Labs: Laboratory Results - last 24 hr 08/10/23 08/10/23 15:39 23:00 WBC 5.4 RBC 5.05 Hgb 14.9 Hct 43.8 MCV 86.7 MCH 29.5 MCHC 34.1 RDW 13.6 Plt Count 267 Neut % (Auto) 65.7 Lymph % (Auto) 24.4 L [place] % (Auto) 7.2 Eos % (Auto) 1.9 L Baso % (Auto) 0.8 Neut # (Auto) 3500 Lymph # (Auto) 1300 [place] # (Auto) 400 Eos # (Auto) 100 Baso # (Auto) 0 PT 11.8 INR 1.0 APTT 37 H Sodium 139 Potassium 3.6 Chloride 101 Carbon Dioxide 29 BUN 18 Creatinine 0.73 Estimated GFR > 60 BUN/Creatinine Ratio 24.7 H Glucose 105 Calcium 9.1 Magnesium 2.2 Total Bilirubin 0.6 AST 26 ALT 27 Alkaline Phosphatase 73 Total Creatine Kinase 85 Troponin I < 0.012 Total Protein 8.1 Albumin 4.6 Globulin 3.5 Albumin/Globulin Ratio 1.3 Lipase 20 L Nasal Screen MRSA (PCR) Not detected Assessment & Plan Assessment & Plan narrative: 1. Neurologic symptoms secondary to either his hypertensive crisis verses possible TIA. Difficult to know which 1 of these would be more likely. Sounds more like a TIA frankly but again he was so hypertensive that I think that has a potential source of his neurologic symptoms as well At this point he needs to complete his workup with echocardiography. He will need continued cardiac monitoring while here in the hospital in an additional monitor as an outpatient for longer extended period of time looking for rhythm disturbances possible cause of a vascular TIA He obviously needs blood pressure control, and would benefit from aspirin daily as well since prior to admission he was not taking aspirin. He should continue on his rosuvastatin, and consider increase to high-intensity rosuvastatin therapy 2. Hypertension-patient diagnose with borderline hypertension previously obviously no longer borderline. He needs aggressive treatment of his hypertension given the above presenting symptoms. Did receive a dose of metoprolol but is relatively bradycardic this morning I think I would avoid beta [id number] as it initial medication. He did receive lisinopril and amlodipine. I would continue with the amlodipine for now. 3. 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 Code status-full code in the event of a sudden cardiac or respiratory arrest which is not in any way anticipated at this time Assuming blood pressure remains under adequate control, and no new neurologic symptoms are identified, plan to discharge after echocardiography has completed later this morning Quality VTE Deep Vein Thrombosis/Pulmonary Embolism Present on Admission: No
[2023-08-11 08:00] VITALS: BP 149/86; PULSE 60; RESP 19; TEMP 36.8; O2SAT 96
[2023-08-11] MEDS: AMLODIPINE 5 MG TABLET 10 MG PO (09:31)
[2023-08-11] MEDS: ASPIRIN EC 325 MG TABLET PO (09:31)
--- NOTE | 2023-08-11 11:30 | OT.IP.EVAL ---
Past Medical History (Last Reviewed 08/11/23 @ 07:46 by Reece Kelly MD) Benign non-nodular prostatic hyperplasia with lower urinary tract symptoms (01/24/16) BPH w urinary obs/LUTS Chronic fatigue (08/29/15) Dupuytren's contracture (~2017) Essential hypertension Excessive daytime sleepiness Fibromyalgia (12/15/04) Insomnia due to psychological stress Obstructive sleep apnea Palpitations Pure hypercholesterolemia (08/29/15) Rosacea (08/29/15) Skin cancer (~2011) Snoring Unspecified hemorrhoids (12/15/04) Viral upper respiratory tract infection Surgical History (Last Reviewed 08/11/23 @ 07:46 by Reece Kelly MD) Anesthesia History of ankle surgery (~07/03/18) Occupational Therapy Inpatient Evaluation/Re-Eval M1 PT/OT-IP Prior Functional Status Start: 08/11/23 11:13 Freq: NEEDED Status: Active Protocol: Document 08/11/23 11:13 [facility] (Rec: 08/11/23 11:30 [facility] [id number]) Medical Review Prior Functional Status Communication Independent Mobility and Gait Independent with no devices. Activities of Daily Living and IADL's Independent Social History Household Members spouse Living Arrangements House Additional Social History Comment Not able to talk to pt of home set-up as about to have ECHO M2 OT-IP Current Condition Start: 08/11/23 11:13 Freq: Status: Active Protocol: Document 08/11/23 11:13 [facility] (Rec: 08/11/23 11:30 [facility] [id number]) Occupational Therapy Current Condition Current Condition Evaluation Date 08/11/23 Treatment Diagnosis HTN vs TIA Diagnosis Onset Date 08/10/23 M3 OT- IP Subjective and Pain Start: 08/11/23 11:13 Freq: Status: Active Protocol: Document 08/11/23 11:13 [facility] (Rec: 08/11/23 11:30 [facility] [id number]) OT- Subjective Occupational Therapy Visit Type Type Initial Evaluation Visit Start Time 10:45 Visit Stop Time 11:03 Occupational Therapy Visit Comments Patient Comments Pt states feels fine but tired and has been independent in the room. Pt agreed to do cognitive assessment. Patient/Caregiver Goals TO go home. OT Pain Assessment Pain When Pain Assessed At Rest Pain Present Pain Present Pain Reported M4 OT- IP ADL's Start: 08/11/23 11:13 Freq: Status: Active Protocol: Document 08/11/23 11:13 [facility] (Rec: 08/11/23 11:30 [facility] [id number]) OT UUJ-Wrac-Vnocmzm General Evaluation Self-Feeding Ability Independent OT ADL-Grooming Comments OT Grooming Comments Not performed. OT ADL-Oral Care Comments Oral Care Comments Not performed. OT ADL-Dressing Comments OT Dressing Comments No issues anticipated. OT ADL-Toileting Comments OT Toileting Comments Pt states has been independently using the bathroom on his own. OT ADL-Bathing Comments OT Bathing Comments Not performed. M5 OT- IP IADL's Start: 08/11/23 11:13 Freq: Status: Active Protocol: Document 08/11/23 11:13 [facility] (Rec: 08/11/23 11:30 [facility] [id number]) OT-Instrumental Activities of Daily Living Home Safety Awareness Awareness of Need for Assistance at Home Good Awareness Ability to Problem Solve Emergency Able to Problem Solve Situations Medication Management Medication Management Comments Pt states does not take meds. Money Management Money Management Comments Pt states has automatic payment and that his makes out the checks. Meal Preparation Meal Preparation Caregiver Provides Assist Finishing Tunnel Operator Finishing Tunnel Operator Caregiver Provides Assist Driving Driving Concerns Identified Regarding Safety M6 OT- IP Functional Cognition Start: 08/11/23 11:13 Freq: Status: Active Protocol: Document 08/11/23 11:13 [facility] (Rec: 08/11/23 11:30 [facility] [id number]) Cognitive Factors Limiting Selfcare Function Cognitive Ability Level of Alertness Alert Patient Orientation Name,Age,Birthday,Month,Date, Year,Day of Week,Place, Situation Attention Span Ability Capable of Focused Attention, Capable of Sustained Attention Ability to Follow Commands Able to Follow Multi-Step Commands Memory Description Short Term Impaired Problem Solving Ability No deficits Noted Cognitive Tests SLUMS Pt states did not sleep well which have affected his score 21/30 which implies mild neurocognitive deficits. Pt not able to recall any of the 5 objects after several minutes, and able to answer 2/ 4 questions right after time passed. Pt admits that he is not thinking as well as he usually does. Cognitive Comments Cognitive Assessment Comments Pt scored 95 seconds on [place] Making Part B which implies mild deficits for visual attention, speed of processing , task switching, mental flexibility , and executive functioning. Pt's score is 50Th percentile for his age. Pt aware not to drive if not feeling well and his was present and agreed. Hopefully pt will do much better after a good night of sleep. Otherwise would benefit from therapy to help work on his short term memory. OT- Vision and Hearing OT- Hearing Assessment OT- Hearing Assessment WFL OT- Vision Assessment Visual Acuity Glasses All The Time Visual Attentiveness WFL Occular Pursuits WFL Vision Assessment Comments Pt wears trifocals. M7 OT- IP Mobility and Balance Start: 08/11/23 11:13 Freq: Status: Active Protocol: Document 08/11/23 11:13 [facility] (Rec: 08/11/23 11:30 [facility] [id number]) OT- Gait Assessment Comments Gait Ability Comments Per pt and nursing that pt independent in the room and using the bathroom on his own. OT- Balance Assessment Sitting Balance and Reactions Static Sitting Balance Ability Normal Dynamic Sitting Balance Ability Normal M8 OT- IP Objective Assessments Start: 08/11/23 11:13 Freq: Status: Active Protocol: Document 08/11/23 11:13 [facility] (Rec: 08/11/23 11:30 [facility] [id number]) OT Gross Range of Motion Upper Extremity Range of Motion Assessment Within Functional Limits OT Strength Upper Extremity Strength Assessment Within Functional Limits OT- Coordination Assessment Upper Extremity Finger to Nose Test Within Functional Limits OT-Muscle Tone Assessment Muscle Tone WNL Yes M9 OT- IP Assessment and Plan Start: 08/11/23 11:13 Freq: Status: Active Protocol: Document 08/11/23 11:13 [facility] (Rec: 08/11/23 11:30 [facility] [id number]) OT Summary Assessment and Plan Potential Rehabilitation Potential Excellent Analytic Complexity at Evaluation Low Summary OT Impairments Functional Cognition,Dressing Assessment Summary Pt here due to HTN versus TIA and main barrier is that pt having some difficulty with his memory per pt more so than usual, but feels may be attributed to not having slept well last night. Pt scored 21/30 which implies mild neurocognitive deficits- pt mainly having difficulty with his short term memory. Pt scored 95 seconds on [place] Making Part B which implies mild deficits for visual attention, speed of processing , task switching, mental flexibility , and executive functioning. Pt's score is 50Th percentile for his age. Pt aware not to drive if not feeling well and his was present and agreed. Hopefully pt will do much better after a good night of sleep. Otherwise will benefit for strategies to assist with his memory. If pt still here tomorrow reassess cognition. Frequency of Treatment Frequency Of Treatment Discharge Recommendations OT Discharge Recommendations Home with Assistance Transportation Needs at Discharge Private Vehicle
[2023-08-11 12:00] VITALS: BP 132/75; PULSE 58; RESP 20; TEMP 37; O2SAT 96
--- NOTE | 2023-08-11 12:36 | PC.NURSE ---
Pt discharged home at 1245, escorted off floor in wheelchair accompanied by spouse and hospital staff. IV removed, tele d/c'd, discharge teaching provided including new medications and follow up appointments. Questions answered. Patient left the floor with all belongings.
--- NOTE | 2023-08-11 12:47 | ST.IPIE ---
Visit Care Team Role Provider Type Chan Piper MD Emergency Provider Physician Referring Provider Specialty: Emergency Medicine Address: [address], [place], [address] Email: [email or web address] Reece Kelly MD Attending Provider Physician Primary Care Provider Specialty: Internal Medicine Address: [address] [place] [address], [facility] [address], [place], [address] Email: [email or web address] Luis Edwards MD Admit Provider Physician Other Providers Specialty: Family Practice Address: [address] [place] [address], [address], [place], [address] Email: [email or web address] Past Medical History (Last Reviewed 08/11/23 @ 07:46 by Reece Kelly MD) Benign non-nodular prostatic hyperplasia with lower urinary tract symptoms (Medical 01/24/16) BPH w urinary obs/LUTS (Medical) Chronic fatigue (Medical 08/29/15) Dupuytren's contracture (Medical ~2017) Essential hypertension (Medical) Excessive daytime sleepiness (Medical) Fibromyalgia (Medical 12/15/04) Insomnia due to psychological stress (Medical) Intermittent Obstructive sleep apnea (Medical) RDI: 19 Palpitations (Medical) Probably PACs based on monitor 2018 Pure hypercholesterolemia (Medical 08/29/15) intolerant to statins Rosacea (Medical 08/29/15) Skin cancer (Medical ~2011) Snoring (Medical) Unspecified hemorrhoids (Medical 12/15/04) Viral upper respiratory tract infection (Medical) ST IP Initial Evaluation Report [employer] Adult Cognitive Linguistic Eval Start: 08/11/23 12:21 Freq: Status: Active Protocol: Document 08/11/23 12:23 [facility] (Rec: 08/11/23 12:44 [facility] [id number]) Adult Cognitive Linguistic Evaluation Session Time Visit Start Time 11:56 Visit Stop Time 12:22 Total Visit Minutes 26 Visit Information Visit Number [address] Edwards Setting Assessment Location Acute Care Visit Type Note Type Initial evaluation Patient Information Identification Type Name Patient History Per H&P: 73-year-old male, being treated as an outpatient only for hyperlipidemia who presented to the emergency department several hours after having a neurologic episode characterized by a sense of cloudiness in the head, some dizziness, and a an episode of difficulty finding words the lasted for only a few minutes. He does admit to some word- finding difficulties over time but nothing like what happened on day of admission. Symptoms all resolved several hours prior to arrival to the emergency department however. He actually had gone to his dentist for care and found to be quite hypertensive which is what prompted him to seek medical care actually. Does carry a diagnosis of hypertension as well but has not been treated with numbers borderline previously. He was quite hypertensive upon arrival in the emergency department. Patient last seen in the outpatient clinic in July 2022 Patient has denied any other neurologic symptoms no headache, no numbness tingling hands feet arms legs, no loss of coordination no visual change no change in hearing etcetera In the ER he had an extensive workup including CT angiography of the head and neck and brain MRI that failed to reveal anything of any significance. Blood pressure was controlled. No rhythm disturbance has been noted at any point during his hospitalization. He was admitted for further evaluation. 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 He was awake, alert, and oriented. Speech was clear and intelligible. In addition to the acute instance of word-finding difficulties which brought him to the hospital (suspected TIA), the pt reports that he has been having increasing fatigue, memory difficulty, and symptoms of depression over the past few months. 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 He feels that he has been having more difficulty recently with remembering names. Pt reported that he was frustrated with his performance with OT cognitive screeners. He recalled trail making test and states I was able to do it, but I didn't feel like I did it as fast or as easily as I should have. Additionally, he recalled the administration of the SLUMS. He stated that I had difficulty answering questions about the story...I couldn't remember when the woman went back to work. He also stated that he had difficulty remembering the list of 5 objects. Pt denied any difficulty with eating or swallowing. Pain Scale Used Numeric (0 - 10) Assessment Oral Motor Examination Completed No Results Oral motor structure and function appear WFL for speech and swallowing. Informal Assessment Receptive Language Normal Yes Expressive Language Normal Yes Pragmatic Language Normal Yes Speech Normal Yes Cognition Normal No: SLUMS , recent memory difficulty Cognitive Impairment(s) Short-term memory Findings/Results Language Function Within functional limits Cognitive Function Mildly impaired Findings Pt was able to engage in back and forth conversation, understanding and producing complex sentences. His speech was clear and no word-finding deficits were present during the evaluation. However, based on the results of the SLUMS ( administered by OT, ) in addition to complaints of recent increased difficulty with memory and language (e.g. difficulty remembering names, occasional word-finding difficulties during conversation), it is recommended that the pt be referred for a full outpatient evaluation of cognitive- linguistic abilities. [employer] further provided education to pt and regarding factors contributing to cognitive health, including metabolic factors, social factors, mental health, sleep, stress, etc. Pt has complained of recent cloudy days, which clarifies as days of low mood. Additionally, this hospitalization revealed concerns with pt's blood pressure. Unclear which of these factors, if any, may be related to cognitive concerns. [employer] recommends the followin. Referral for outpatient [employer] evaluation for cognition. 2. Follow up with PCP re changes in mood and consider further assessment/ intervention as appropriate. Cognitive Communication Deficits Self-awareness of Cognitive- Situational awareness ( Communication Deficits recognition of problem in context;in real time) Prognosis Prognosis Good Based on Cognitive status,Family support,Other (comment) Comment Good health awareness Plan of Care Speech-Language Treatment Yes Duration Outpatient Patient/Caregiver Education Described results of evaluation,Patient expressed understanding of evaluation, Family/caregivers expressed understanding of evaluation Discharge Recommendations Home
--- NOTE | 2023-08-11 16:13 | CM.DANOTE ---
Brief DCP Assessment Note Pt is a 73yo M here following hypertension/TIA. PCP Robin Isaac and self pay DIRECTOR OF FINANCIAL AID reviewed EMR. Per provider note, unclear if symptoms were from being hypertensive vs TIA. pt was dizzy/struggled to find words/was cloudy when presented to the ER. Pt got an echo, and per Robin note, pending no concerns on echo plan to dc home with family. Per OT/speech eval, rec OP follow up. No obvious CM needs identified from chart review. Pt left prior to being seen by this author. Plan: home with family support in POV. No CM needs identified. CM team will follow as needed. ABDOULAYE Quispe Discharge Planning/Care Management CM Discharge Assessment Start: 08/11/23 16:08 Freq: Status: Active Protocol: Document 08/11/23 16:09 (Rec: 08/11/23 16:13 [id number]) Discharge Planning Assessment Assigned [employer] Program Coordinator ABDOULAYE Camargo DPOA/Assigned Designee Name Savita Chavarria, Spouse Contact Information [phone] Advance Directives? No History Provided By Patient Prior Living Arrangements House Household Members spouse Is patient alert and oriented? Yes Barriers to Discharge No Discharge Plan Home Transportation Arrangement POV Referrals Initiated None needed Whiteboard Updated in Patient Room with No name and ext. # of [employer] Program Coordinator Review Status In Process Next Review Type Continued Stay Review
== END 2023-08-11 12:45 | disposition home or self-care (01) ==
LOC: ED 19:01 → AC 19:15 → ICU 21:17
PROVIDERS: Admitting Provider Family Medicine; Emergency Provider Emergency Medicine; PCP Internal Medicine; Referring Provider Emergency Medicine; Visit Provider Internal Medicine
DX: R03.0 Elevated blood-pressure reading, without diagnosis of hypertension (principal); R42 Dizziness and giddiness
CPT/HCPCS: 36415; 70450; 70496; 70498; 70551; 71045; 80053; 82550; 83690; 83735; 84484; 85025; 85610; 85730; 87797; 92523; 93005; 93010; 93306; 97129; 97165; 99234; 99285; G0378

== ENCOUNTER → 2023-09-02 12:02 | Outpatient (CLI) | payer MEDICARE, SELFPAY ==
[2023-08-10 19:43] VITALS: BMI 25.2
== END ==
LOC: CAR 12:05
PROVIDERS: PCP Internal Medicine; Referring Provider Internal Medicine; Visit Provider Internal Medicine
DX: Z86.73 Personal history of transient ischemic attack (TIA), and cerebral infarction without residual deficits (principal); I49.9 Cardiac arrhythmia, unspecified
CPT/HCPCS: 93246

== ENCOUNTER → 2024-03-14 07:51 | Outpatient (CLI) | payer MEDICARE, SELFPAY ==
[2024-02-29 10:31] VITALS: BMI 25.2
[2024-03-14 08:19] LABS: Alanine Aminotransferase 35 IU/L (<50); Albumin 4.6 g/dL (3.5-5.0); Albumin Globulin Ratio 1.4 (1.0-2.8); Alkaline Phosphatase 72 U/L (38-126); Aspartate Aminotransferase 35 IU/L (17-59); BUN Creatinine Ratio 28.4 (6-22); Bilirubin Total 0.5 mg/dL (0.2-1.3); Blood Urea Nitrogen 23 mg/dL (9-20); Calcium 9.6 mg/dL (8.4-10.2); Carbon Dioxide 33 mmol/L (22-32); Chloride 97 mmol/L (98-107); Cholesterol 168 mg/dL (140-199); Estimated Glomerular Filt Rate > 60 mL/min (>60); Globulin 3.2 g/dL (1.7-4.1); Glucose 128 mg/dL (80-110); HDL Cholesterol 60 mg/dL (40-60); HEMOLYSIS < 15 (0-50); LDL Cholesterol Calculated 76 mg/dL (<100); Potassium 3.8 mmol/L (3.4-5.1); Sodium 136 mmol/L (137-145); Total Protein 7.8 g/dL (6.3-8.2); Triglycerides 162 mg/dL (35-150)
== END ==
PROVIDERS: PCP Internal Medicine; Referring Provider Internal Medicine; Visit Provider Internal Medicine
DX: I10 Essential (primary) hypertension (principal); E78.00 Pure hypercholesterolemia, unspecified
CPT/HCPCS: 36415; 80053; 80061

== ENCOUNTER → 2024-09-04 10:40 | Outpatient (CLI) | payer MEDICARE, SELFPAY ==
[2024-07-07 10:28] VITALS: BMI 25.2
[2024-09-04 11:29] LABS: COVID-19 CEPHEID 4-PLEX PCR Negative (Negative); Influenza A - CEPHEID Flu A NEGATIVE (NEGATIVE); Influenza B - CEPHEID Flu B NEGATIVE (NEGATIVE); Respiratory Syncytial Virus Negative (Negative)
== END ==
PROVIDERS: PCP Internal Medicine; Visit Provider Physician Assistant
DX: R05.9 Cough, unspecified (principal); J02.9 Acute pharyngitis, unspecified
CPT/HCPCS: 0241U; 87070

== ENCOUNTER → 2024-09-04 11:28 | Outpatient (CLI) | payer MEDICARE, SELFPAY ==
[2024-07-07 10:28] VITALS: BMI 25.2
--- NOTE | 2024-09-04 11:30 | DI.RAD.S_ITS ---
PROCEDURE: XR CHEST 2V INDICATIONS: acute cough TECHNIQUE: 2 views of the chest were acquired. COMPARISON: [facility], CR, XR CHEST 1V, 08/10/2023, 13:49. FINDINGS: Heart, mediastinum and pulmonary vascular: Heart is normal in size and configuration. Mediastinum is unremarkable. Pulmonary vascular is normal. Lungs: Bronchovascular markings in the posterior right lower lobe are prominent on both PA and lateral view . This may indicate developing pneumonia Pleural spaces: Normal-no effusions or pneumothorax. Bones and soft tissues: Normal IMPRESSION: Possible developing right lower lobe pneumonia. Suggest short-term radiographic follow-up Dictated by: Reece Malone M.D. on 09/05/2024 at 9:15 Approved by: Reece Malone M.D. on 09/05/2024 at 9:17
== END ==
PROVIDERS: PCP Internal Medicine; Referring Provider Physician Assistant; Visit Provider Physician Assistant
DX: R05.1 Acute cough (principal); J02.9 Acute pharyngitis, unspecified
CPT/HCPCS: 0241U; 71046; 87070

== ENCOUNTER → 2024-09-11 14:25 | Outpatient (CLI) | payer MEDICARE, SELFPAY ==
[2024-07-07 10:28] VITALS: BMI 25.2
--- NOTE | 2024-09-11 14:26 | DI.US.S_ITS ---
PROCEDURE: US THYROID INDICATIONS: LT NECK FULLNESS TECHNIQUE: Real-time scanning was performed of the thyroid gland, with image documentation. COMPARISON: None. FINDINGS: Thyroid: Right lobe measures 5.2 x 2.6 x 2.1 cm. Left lobe measures 0.4 x 1.9 x 1.4 cm. Isthmus is 0.2 cm thick. Echotexture is heterogeneous. There are numerous tiny hypoechoic nodules. None meet criteria to follow by imaging. The imaged areas of the neck also appears unremarkable without suspicious mass or adenopathy. IMPRESSION: Heterogeneous thyroid gland without suspicious thyroid nodules. None meet criteria for image follow-up at this time. Dictated by: Scott Adames M.D. on 09/11/2024 at 21:09 Approved by: Scott Adames M.D. on 09/11/2024 at 21:12
== END ==
LOC: US 14:25
PROVIDERS: PCP Internal Medicine; Referring Provider Physician Assistant; Visit Provider Physician Assistant
DX: R22.1 Localized swelling, mass and lump, neck (principal); R05.1 Acute cough
CPT/HCPCS: 76536

== ENCOUNTER → 2024-09-22 08:08 | Outpatient (CLI) | payer MEDICARE, SELFPAY ==
[2024-07-07 10:28] VITALS: BMI 25.2
[2024-09-22 11:35] LABS: Erythrocyte Sedimentation Rate 15 MM/HR (0-15)
[2024-09-22 11:49] LABS: Alanine Aminotransferase 30 IU/L (<50); Albumin 4.7 g/dL (3.5-5.0); Albumin Globulin Ratio 1.7 (1.0-2.8); Alkaline Phosphatase 65 U/L (38-126); Aspartate Aminotransferase 30 IU/L (17-59); BUN Creatinine Ratio 21.1 (6-22); Bilirubin Total 0.5 mg/dL (0.2-1.3); Blood Urea Nitrogen 27 mg/dL (9-20); C-Reactive Protein Quant < 0.5 mg/dL (<1.0); Calcium 9.7 mg/dL (8.4-10.2); Carbon Dioxide 27 mmol/L (22-32); Chloride 100 mmol/L (98-107); Cholesterol 165 mg/dL (140-199); Estimated Glomerular Filt Rate 59 mL/min (>60); Globulin 2.8 g/dL (1.7-4.1); Glucose 120 mg/dL (80-110); HDL Cholesterol 43 mg/dL (40-60); HEMOLYSIS < 15 (0-50); LDL Cholesterol Calculated 84 mg/dL (<100); Potassium 4.2 mmol/L (3.4-5.1); Sodium 138 mmol/L (137-145); Total Protein 7.5 g/dL (6.3-8.2); Triglycerides 191 mg/dL (35-150)
[2024-09-22 11:50] LABS: Rheumatoid Factor < 8.6 IU/mL (<12.0)
[2024-09-22 14:45] LABS: TSH w/ Reflex to FT4 1.21 uIU/mL (0.47-4.68)
[2024-09-25 18:36] LABS: CCP Antibodies IgG/IgA 4 units (0-19)
== END ==
PROVIDERS: PCP Internal Medicine; Referring Provider Internal Medicine; Visit Provider Internal Medicine
DX: I10 Essential (primary) hypertension (principal); M06.9 Rheumatoid arthritis, unspecified; E78.00 Pure hypercholesterolemia, unspecified
CPT/HCPCS: 36415; 80053; 80061; 84443; 85651; 86038; 86140; 86200; 86430

== ENCOUNTER → 2024-11-09 07:04 | Outpatient (CLI) | payer MEDICARE, SELFPAY ==
[2024-07-07 10:28] VITALS: BMI 25.2
[2024-11-10 04:08] LABS: Immunoglobulin A 62 mg/dL (61-437)
[2024-11-10 20:40] LABS: Tissue Transglutaminase IgA <2 U/mL (0-3)
[2024-11-11 05:36] LABS: Endomysial AB IGA Negative (Negative)
== END ==
PROVIDERS: PCP Internal Medicine; Referring Provider Family Medicine; Visit Provider Family Medicine
DX: K58.9 Irritable bowel syndrome, unspecified (principal)
CPT/HCPCS: 36415; 82784; 83516; 86255